=== PATIENT | female | born 1940 | race Caucasian/White ===

== ENCOUNTER 2017-11-13 18:32 | Emergency (ER) | payer MEDICARE, OTHER ==
[2017-11-13 19:53] VITALS: BP 183/59
--- NOTE | 2017-11-13 20:03 | UC ---
Respiratory Complaint HPI - HPI Summary HPI Summary: 77 yo female with a 2 week hx of cough sore throat no CP or SOB no leg pain no n/v/d no f/c - History of Current Complaint Chief Complaint: UCRespiratory Stated Complaint: COUGH Time Seen by Provider: 11/13/17 20:01 Hx Obtained From: Patient Onset/Duration: Gradual Onset, Lasting Weeks Timing: Constant Severity Initially: Mild Severity Currently: Moderate Pain Intensity: 0 Pain Scale Used: 0-10 Numeric Character: Cough: Nonproductive Aggravating Factors: Nothing Alleviating Factors: Nothing Associated Signs And Symptoms: Positive: Wheezing Related History: Similar Episode/Dx as: - bronchitis - Allergies/Home Medications Allergies/Adverse Reactions: Allergies Allergy/AdvReac Type Severity Reaction Status Date / Time atenolol [From Tenormin] Allergy Severe Difficulty Verified 11/13/17 19:55 Breathing terazosin [From Hytrin] Allergy Intermediate Unknown Verified 11/13/17 19:54 Reaction Details verapamil AdvReac Intermediate Fatigue Verified 11/13/17 19:55 diltiazem [From Cardizem] AdvReac Palpitation Verified 11/13/17 19:55 s Home Medications: Home Medications Chlorthalidone TAB* [Hygroton TAB*] 50 mg 11/13/17 [History] Doxyzosyn 1 tab PO DAILY 11/13/17 [History Confirmed 11/13/17] Levalbuterol HFA INHALER* [Xopenex Hfa Inhaler*] 11/13/17 [History] Levothyroxine TAB* [Synthroid 25 MCG TAB*] 25 mg PO DAILY 11/13/17 [History Confirmed 11/13/17] metFORMIN* [Glucophage 500 MG TAB *] 750 mg PO DAILY 11/13/17 [History Confirmed 11/13/17] PMH/Surg Hx/FS Hx/Imm Hx Previously Healthy: Yes Endocrine History: Diabetes, Dyslipidemia Cardiovascular History: Hypertension Neurological History: Other Other Neurological History: left carotid endarterectomy - Surgical History Surgical History: Yes Surgery Procedure, Year, and Place: Partial removal of b/l ovaries, D&C, Tonsillectomy, Left carotid entarectomy. - Family History Known Family History: Positive: Hypertension - Social History Alcohol Use: Occasionally Substance Use Type: None Smoking Status (MU): Never Smoked Tobacco Review of Systems Constitutional: Negative Skin: Negative Eyes: Negative ENT: Sore Throat Respiratory: Cough Cardiovascular: Negative Gastrointestinal: Negative Genitourinary: Negative Motor: Negative Neurovascular: Negative Musculoskeletal: Negative Neurological: Negative Psychological: Negative Is Patient Immunocompromised?: No All Other Systems Reviewed And Are Negative: Yes Physical Exam Triage Information Reviewed: Yes Appearance: Well-Appearing, No Pain Distress, Well-Nourished Vital Signs: Initial Vital Signs Temp 96.7 F 11/13/17 19:49 Pulse 55 11/13/17 19:49 Resp 16 11/13/17 19:49 BP 183/59 11/13/17 19:49 Pulse Ox 99 11/13/17 19:49 Eyes: Positive: Conjunctiva Clear ENT: Positive: Hearing grossly normal, Pharynx normal, Uvula midline. Negative : Nasal congestion, Nasal drainage, Tonsillar swelling, Tonsillar exudate, Trismus, Muffled voice, Hoarse voice, Dental tenderness, Sinus tenderness Neck: Positive: Supple, Nontender, No Lymphadenopathy Respiratory: Positive: No respiratory distress, No accessory muscle use, Rhonchi Cardiovascular: Positive: RRR. Negative: No Murmur - 2/6 LUIGI Musculoskeletal: Positive: ROM Intact, Edema @ - left leg/ wearing compression stocking Neurological: Positive: Alert Psychological Exam: Normal Skin Exam: Normal UC Diagnostic Evaluation - Laboratory O2 Sat by Pulse Oximetry: 99 - normal/not hypoxic - Radiology Xray Interpretation: No Acute Changes Radiology Interpretation Completed By: Radiologist Respiratory Course/Dx - Differential Dx/Diagnosis Provider Diagnoses: acute bronchitis Discharge - Discharge Plan Condition: Stable Disposition: HOME Prescriptions: Amoxicillin PO (*) [Amoxicillin 875 MG (*)] 875 mg PO BID #14 tab predniSONE [Deltasone] 20 mg PO DAILY #5 tab Patient Education Materials: Acute Bronchitis (ED) Referrals: Roel Zavala MD [Primary Care Provider] -
--- NOTE | 2017-11-13 20:33 | RAD ---
INDICATION: Cough for 2 weeks. COMPARISON: There are no prior studies available for comparison. TECHNIQUE: Dual-energy PA and lateral views of the chest were obtained. FINDINGS: The heart is within normal limits in size. Mediastinal and hilar contours appear within normal limits. The lungs are slightly hyperinflated and clear. No pleural effusion is seen. IMPRESSION: NO EVIDENCE FOR ACTIVE CARDIOPULMONARY DISEASE.
[2017-11-13] MEDS ORDERED: Amoxicillin PO (*) 500 MG CAP PO ONE (20:44)
== END 2017-11-13 20:55 | disposition home or self-care (01) ==
LOC: UCCORT 18:32
DX: J20.9 Acute bronchitis, unspecified (principal); Z88.8 Allergy status to other drugs, medicaments and biological substances; E11.9 Type 2 diabetes mellitus without complications; Z79.84 Long term (current) use of oral hypoglycemic drugs; E78.5 Hyperlipidemia, unspecified; I10 Essential (primary) hypertension
CPT/HCPCS: 71046; 99212; A9270-GY; G0463

== ENCOUNTER 2017-12-04 19:59 | Emergency (ER) | payer MEDICARE, OTHER ==
[2017-12-04] MEDS ORDERED: Albuterol/Ipratropium NEB.SOL* Albuterol 2.5 MG/Ipratropium 0.5 MG 3 ML INH ONE (20:21)
--- NOTE | 2017-12-04 21:07 | UC ---
General HPI - HPI Summary HPI Summary: pt states she was here 3 weeks ago, had a cxr and was dx with bronchitis. she was tx with amoxicillin and a steroid. the steroid "almost made me go through the roof" so the dose was reduced to 10mg daily for 5 days. pt states she got better. last night, she noted her airway to be irritated and she began to cough. she noted her chest was rattling. she saw Dr Zavala today who tx her with Levaquin 500mg, once daily for 10 days and xopenex inhaler. she returns with a non stop cough, sob and chills.. pt denies any cp or hx lung disease. - History of Current Complaint Hx Obtained From: Patient Timing: Constant Pain Intensity: 0 Associated Signs & Symptoms: Positive: Cough, SOB <Nida Rodriguez - Last Filed: 12/04/17 22:45> <Steph Washington - Last Filed: 12/04/17 22:51> - History of Current Complaint Chief Complaint: UCRespiratory Stated Complaint: SOB,COUGH Time Seen by Provider: 12/04/17 20:43 - Allergy/Home Medications Allergies/Adverse Reactions: Allergies Allergy/AdvReac Type Severity Reaction Status Date / Time atenolol [From Tenormin] Allergy Severe Difficulty Verified 12/04/17 20:17 Breathing terazosin [From Hytrin] Allergy Intermediate Unknown Verified 12/04/17 20:17 Reaction Details verapamil AdvReac Intermediate Fatigue Verified 12/04/17 20:17 diltiazem [From Cardizem] AdvReac Palpitation Verified 12/04/17 20:17 s Home Medications: Home Medications Levofloxacin TAB* [Levaquin TAB*] 500 mg PO DAILY 12/04/17 [History Confirmed ] PMH/Surg Hx/FS Hx/Imm Hx - Additional Past Medical History Additional PMH: anemia, LLE edema post vein harvest Endocrine History: Thyroid Disease Cardiovascular History: Hypertension - Surgical History Surgical History: Yes Surgery Procedure, Year, and Place: Partial removal of b/l ovaries, D&C, Tonsillectomy, Left carotid entarectomy. - Family History Known Family History: Positive: Hypertension - Social History Alcohol Use: Occasionally Substance Use Type: None Smoking Status (MU): Never Smoked Tobacco <Nida Rodriguez - Last Filed: 12/04/17 22:45> Review of Systems Constitutional: Negative Skin: Negative Eyes: Negative ENT: Negative Respiratory: Shortness Of Breath, Cough Cardiovascular: Negative Gastrointestinal: Negative Genitourinary: Negative Motor: Negative Neurovascular: Negative Musculoskeletal: Negative Neurological: Negative Psychological: Negative Is Patient Immunocompromised?: No All Other Systems Reviewed And Are Negative: Yes <Nida Rodriguez - Last Filed: 12/04/17 22:45> Physical Exam Triage Information Reviewed: Yes Appearance: Well-Appearing Vital Signs: Initial Vital Signs Temp 99.3 F 12/04/17 20:13 Pulse 67 12/04/17 20:13 Resp 18 12/04/17 20:13 BP 180/62 12/04/17 20:13 Pulse Ox 94 12/04/17 20:13 Vital Signs Reviewed: Yes Eyes: Positive: Conjunctiva Clear ENT: Positive: Normal ENT inspection Neck: Positive: Supple, Nontender, Other: - no jvd Respiratory: Positive: Decreased breath sounds, Other: - cough is congested. Cardiovascular: Positive: RRR, No Murmur Abdomen Description: Positive: Nontender, No Organomegaly, Soft Bowel Sounds: Positive: Present Musculoskeletal: Positive: Edema @ - LLE(chronic). No calf pain or cords. Neurological: Positive: Alert Psychological: Positive: Age Appropriate Behavior Skin Exam: Normal <Nida Rodriguez - Last Filed: 12/04/17 22:45> Vital Signs: Initial Vital Signs Temp 99.3 F 12/04/17 20:13 Pulse 67 12/04/17 20:13 Resp 18 12/04/17 20:13 BP 180/62 12/04/17 20:13 Pulse Ox 94 12/04/17 20:13 <Steph Washington - Last Filed: 12/04/17 22:51> Diagnostics - Radiology No standard instances Xray Interpretation: No Acute Changes Radiology Interpretation Completed By: Radiologist <Nida Rodriguez - Last Filed: 12/04/17 22:45> Re-Evaluation - Re-Evaluation Second Eval Re-Evaluation Time: 22:21 Change: Unchanged - sat still 93-94% on RA post neb tx. has a cough. sat on prior visit 99%. <Nida Rodriguez - Last Filed: 12/04/17 22:45> Course/Dx - Course Course Of Treatment: EKG no ischemia and CXR=NAD; however, pt still with cough, sat 93-94%(prior visit 99%). she denies sob post tx but seems dyspnic with converstaion. ER transfer advised; however, pt refused despite risk of worsening, disability and . she is a&ox3 and able to make decisons thus I must respect her refusal of transfer. she agrees to f/u pcp in am. pneumonia and PE are both possibilities. - Differential Dx - Multi-Symptom Provider Diagnoses: SOB, cough, sat 93-94%RA <Nida Rodriguez - Last Filed: 12/04/17 22:45> Discharge - Sign-Out/Discharge Documenting (check all that apply): Discharge - Billing Disposition and Condition Condition: STABLE Disposition: AMMarjorie <Nida Rodriguez - Last Filed: 12/04/17 22:45> - Billing Disposition and Condition Condition: STABLE Disposition: AMA <Steph Washington - Last Filed: 12/04/17 22:51> - Discharge Plan Condition: Stable Disposition: AGAINST MEDICAL ADVICE Patient Education Materials: Dyspnea (ED), Acute Cough (ED) Referrals: Roel Zavala MD [Primary Care Provider] - Additional Instructions: FOLLOW UP DR ZAVALA FIRST THING IN MORNING. GO TO ER IF YOU CHANGE YOUR MIND. CONTINUE THE INHALER AND ANTIBIOTIC(LEVAQUIN) DIRECTED. Attestation Statement User Type: Provider - I was available for consult. This patient was seen by the [facility]. The patient was not presented to, seen by, or examined by me. -Ljj <Steph Washington - Last Filed: 12/04/17 22:51> Addendum entered and electronically signed by Nida Rodriguez PA 12/04/17 22:46 : UC Addendum Addendum: pt declined a single dose 10mg prednisone prior to discharge as well.
--- NOTE | 2017-12-04 21:20 | RAD ---
INDICATION: Cough. Short of breath COMPARISON: November 13, 2017 TECHNIQUE: PA and lateral dual-energy views were obtained. FINDINGS: Bones/Soft Tissues: There are no acute bony findings. Cardiomediastinal: The cardiomediastinal silhouette is normal. Lungs: There are no infiltrates. Pleura: There are no pleural effusions. Other: None IMPRESSION: NO ACTIVE DISEASE.
[2017-12-04 22:13] VITALS: BP 153/43
== END 2017-12-04 22:30 | disposition left against medical advice (07) ==
LOC: UCCORT 19:59
DX: R06.02 Shortness of breath (principal); R05 Cough; Z88.8 Allergy status to other drugs, medicaments and biological substances; I10 Essential (primary) hypertension; Z88.1 Allergy status to other antibiotic agents
CPT/HCPCS: 71046; 87502; 93005; 99213; A9270-GY; G0463

== ENCOUNTER 2019-03-21 06:53 | Inpatient (IN) | payer MEDICARE, OTHER ==
--- NOTE | 2019-03-12 09:27 | HP ---
AMENDED REPORT NOW INCLUDES DESIGNATED COSIGNER HISTORY AND PHYSICAL: DATE OF ADMISSION/SURGERY: 03/21/19 DATE OF OFFICE VISIT: 03/11/19 SURGEON: Katie Shepard MD * (DICTATED BY MILAGRO DORSEY) PROCEDURE: Right total knee arthroplasty. CHIEF COMPLAINT: Right knee pain. HISTORY OF PRESENT ILLNESS: Ms. Mendoza is an 78-year-old female with continuing complaints of right knee pain secondary to osteoarthritis. She has failed conservative treatment and elected to proceed with a right total knee arthroplasty. PAST MEDICAL HISTORY: Hypertension, high cholesterol, asthma, diabetes, sleep apnea, TIA, hypothyroidism and anemia. PAST SURGICAL HISTORY: Endarterectomy, multiple heart caths, tonsillectomy, bilateral partial oophorectomy and . CURRENT MEDICATIONS: 1. Aspirin 81 mg a day. 2. Chlorthalidone 50 mg a day. 3. Synthroid 25 mcg a day. 4. Atorvastatin and calcium 40 mg a day. 5. Metformin 750 mg 1 tab daily. 6. Lisinopril 40 mg a day. 7. Spironolactone 25 mg a day. 8. Doxazosin 4 mg a day. 9. Bystolic 40 mg a day. 10. Xopenex. 11. Symbicort. 12. Feosol. ALLERGIES: VERAPAMIL, CARDIZEM, TENORMIN, LEVAQUIN and HYTRIN. FAMILY HISTORY: Coronary artery disease, stroke, and hypertension. SOCIAL HISTORY: She is an 78-year-old female. She lives with her son. She does not smoke or use drugs. REVIEW OF SYSTEMS: A complete 14-point review of systems is reviewed with the patient, is positive for hypothyroidism, asthma and history of TIA. She denies history of a DVT, PE, hepatitis, HIV or anesthesia problems. PHYSICAL EXAMINATION GENERAL: She is well developed, well nourished, in no acute distress. VITAL SIGNS: She stands 5 feet 2 inches tall, weighs 225 pounds. Her blood pressure is 156/90, heart rate is 73. HEENT: Normocephalic, atraumatic. NECK: Supple. No palpable lymph nodes. PULMONARY: Lungs are clear to auscultation bilaterally. CARDIO: Regular rate and rhythm. Strong S1 and S2. ABDOMEN: Soft, nontender, nondistended. NEUROLOGIC: She is alert and oriented x3. MUSCULOSKELETAL: Right lower extremity, the skin is intact. There are no open wounds or abrasions. There is a moderate effusion of the right knee joint. There is a 20 degree valgus deformity. Range of motion is 5 to 120 degrees of flexion with patellofemoral crepitus. She has an incompetent MCL. She is able to dorsiflex and plantarflex. She has a 2+ dorsalis pedis pulse. ASSESSMENT AND PLAN: Ms. Mendoza is an 78-year-old female with severe end-stage osteoarthritis of the right knee. She has failed conservative treatment and elected to proceed with a right total knee arthroplasty. The surgery is scheduled for 03/21/[address] Shepard discussed the risks and benefits of the surgery at today's visit and all of her questions were answered. She will follow up with Dr. Shepard 2 weeks after the surgery. MILAGRO DORSEY [id number]/[facility] #: [id number] MARGIE
[~2019-03-21 06:53] MED LIST: Acetaminophen TAB* 325 MG PO ONE; Buffered Lidocaine 1% SYRIN* 1 ML/SYRINGE INTRADERM ONE; DiMENhydriNATE IV* 50 MG/ML VIAL IV PUSH PRN; Famotidine IV* 10 MG/ML 2 ML (20 mg) IV ONE; Gabapentin CAP(*) 300 MG PO ONE; Morphine 4 MG/ML VIAL (1 ml) 4 MG/ML VIAL IV PRN; Naloxone* 0.4 MG/ML 1 ML VIAL IV PRN; Ondansetron ODT TAB* 4 MG PO ONE; PROCHLORPERAZINE INJ 5 MG/ML 2 ML VIAL IV PRN; ROPIVACAINE 5 MG/ML 30 ML BTL (0.5%) ONE; celeCOXIB CAP* 100 MG PO ONE; fentaNYL* 50 MCG/ML 2 ML VIAL (100 MCG VIAL) IV PRN; oxyCODONE TAB* 5 MG TAB PO PRN
--- OUTSIDE RECORDS SUMMARY | 2019-03-21 06:57 | XMS REPORT | Continuity of Care Document ---
:1940 External Reference #:[id number] Author Name Darlene Ramirez Care Team Providers Name Role Phone Roel Zavala MD Primary Care Physician Unavailable Payers Date Identification Numbers Payment Provider Subscriber Policy Number: [id number] Medicare Maisha Mendoza PayID: [id number] [address] [place] [address] Policy Number: [id number] Lifetime Benefit Solution Maisha Mendoza PayID: [id number] [address] [place] [address] Problems Active Problems Provider Date Morbid obesity Katie Shepard M.D. Onset: 01/23/2019 Acquired genu valgum Katie Shepard M.D. Onset: 01/23/2019 Localized, primary osteoarthritis Katie Shepard M.D. Onset: 01/23/2019 Family History Date Family Member(s) Observation Comments General Heart Disease General Hypertension General Stroke Social History Type Date Description Comments Sex Unknown Lives With Son Occupation Retired public health nurse Tobacco Use Start: Unknown Patient has never smoked Smoking Status Reviewed: 03/11/19 Patient has never smoked Allergies, Adverse Reactions, Alerts Active Allergies Reaction Severity Comments Date Verapamil 01/23/2019 Cardizem 01/23/2019 Tenormin 01/23/2019 Levaquin 01/23/2019 Terazosin 01/23/2019 Medications Active Medications SIG Qnty Indications Ordering Provider Date Aspirin Adult Low 1 by mouth every Unknown Strength day 81mg Tablets DR Chlorthalidone 1 by mouth every Unknown 50mg Tablets day Synthroid 1 by mouth every Unknown 25mcg Tablets day Atorvastatin Calcium 1 by mouth every Unknown 40mg day Tablets Metformin HCL ER 2 tablets by Unknown 750mg mouth every day Tablets ER 24HR Lisinopril 1 by mouth every Unknown 40mg Tablets day Spironolactone 1 by mouth every Unknown 25mg Tablets day Doxazosin Mesylate 1 by mouth every Unknown 4mg day Tablets Bystolic Unknown Xopenex Unknown Symbicort Unknown Feosol Unknown Vital Signs Date Vital Result Comment 03/11/2019 2:01pm Height 62.5 inches 5'2.50" Weight 225.00 lb Heart Rate 73 /min BP Systolic 156 mmHg BP Diastolic 90 mmHg Body Temperature 96.9 F BMI (Body Mass Index) 40.5 kg/m2 01/23/2019 10:32am Height 62.50 inches 5'2.50" Weight 224.00 lb Heart Rate 64 /min BP Systolic 140 mmHg BP Diastolic 72 mmHg Respiratory Rate 18 /min Body Temperature 97.0 F Pain Level 3 BMI (Body Mass Index) 40.3 kg/m2 Results Test Date Facility Test Result H/L Range Note Xray 01/23/2019 [facility] Knee 3 Views RT <pending> [address] [place] [address] [phone] Encounters Type Date Location Provider Dx Diagnosis Office Visit 01/23/2019 [facility] Katie Shepard, M25.561 [facility] M25.461 Effusion, right knee M17.11 Unilateral primary osteoarthritis, right knee M21.061 Valgus deformity, not elsewhere classified, right knee Z68.41 Body mass index (BMI) 40.0-44.9, adult E66.01 Morbid (severe) obesity due to excess calories Plan of Treatment Future Appointment(s):04/05/2019 2:00 pm - Katie Shepard M.D. at [facility].03/21/2019 7:30 am - SOHEILA Alvarez at [facility].03/21/2019 7:30 am - Lion Montelongo PA-C at [facility].03/21/2019 7:30 am - MILAGRO Sevilla at [facility].03/21/2019 7:30 am - Katie Shepard M.D. at [facility].03/11/2019 - Katie Shepard M.D.M25.561 Pain in right kneeFollow up:Follow up: 2 weeks after souwdnjO04.461 Effusion, right kneeM17.11 Unilateral primary osteoarthritis, right kneeM21.061 Valgus deformity , not elsewhere classified, right knee
--- OUTSIDE RECORDS SUMMARY | 2019-03-21 06:57 | XMS REPORT | Continuity of Care Document ---
:1940 External Reference #:[id number] Author Name Aziza Winslow Care Team Providers Name Role Phone Roel Zavala MD Primary Care Physician Unavailable Payers Date Identification Numbers Payment Provider Subscriber Policy Number: [id number] Medicare Maisha Mendoza PayID: [id number] [address] [place] [address] Policy Number: [id number] Lifetime Benefit Solution Maisha Mendoza PayID: [id number] [address] [place] [address] Problems Active Problems Provider Date Morbid obesity [...] Patient has never smoked Smoking Status Reviewed: 01/23/19 Patient has never smoked Allergies, Adverse Reactions, Alerts Active Allergies Reaction Severity Comments Date Verapamil 01/23/2019 Cardizem 01/23/2019 Tenormin 01/23/2019 Levaquin 01/23/2019 Terazosin 01/23/2019 Medications Active Medications SIG Qnty Indications Ordering Provider Date Aspirin Adult Low 1 by mouth every Unknown Strength day 81mg Tablets Chlorthalidone 1 by mouth every Unknown 50mg [...] Unknown Vital Signs Date Vital Result Comment 01/23/2019 10:32am Height 62.50 inches 5'2.50" Weight 224.00 lb Heart Rate 64 /min BP Systolic 140 mmHg BP Diastolic 72 mmHg Respiratory Rate 18 /min Body Temperature 97.0 F Pain Level 3 BMI (Body Mass Index) 40.3 kg/m2 Results Test Date Facility Test Result H/L Range Note Xray 01/23/2019 [facility] Knee 3 Views RT <pending> [address] [place] [address] [phone] Encounters Type Date Location Provider Dx Diagnosis Office Visit 01/23/2019 [facility] Katie Shepard, M25.561 Pain in right 9:30a [facility] [facility] knee M25.461 Effusion, right knee M17.11 Unilateral primary osteoarthritis, right knee M21.061 Valgus deformity, not elsewhere classified, right knee Z68.41 Body mass index (BMI) 40.0-44.9, adult E66.01 Morbid (severe) obesity due to excess calories Plan of Treatment Future Appointment(s):03/21/2019 7:30 am - SOHEILA Alvarez at [facility]03/21/2019 7:30 am - Lion Montelongo PA-C at [facility]03/21/2019 7:30 am - MILAGRO Sevilla at [facility]03/21/2019 7:30 am - Katie Shepard M.[facility]. [facility]03/11/2019 2:00 pm - Katie Shepard M.D. [facility]01/23/2019 - Katie Shepard M.D.M25.561 Pain in right kneeFollow up:Follow up: 7-10 days before diyakmgO78.461 Effusion, right kneeM17.11 Unilateral primary osteoarthritis, right kneeM21.061 Valgus deformity, not elsewhere classified, right kneeZ68.41 Body mass index (BMI) 40.0 -44.9, xyycbJ55.01 Morbid (severe) obesity due to excess calories
--- OUTSIDE RECORDS SUMMARY | 2019-03-21 06:58 | XMS REPORT | Continuity of Care Document ---
:1940 External Reference #:[id number] Author Name Flower Mclaughlin Care Team Providers Name Role Phone Roel Zavala MD Primary Care Physician Unavailable Payers Date Identification Numbers Payment Provider Subscriber Policy Number: [id number] Medicare Maisha Mendoza PayID: [id number] [address] [place] [address] Policy Number: [id number] Lifetime Benefit Solution Maisha Mendoza PayID: [id number] [address] [place] [address] Problems Active Problems Provider Date Type 2 diabetes mellitus Onset: 12/11/2013 Essential hypertension Roel Zavala MD Onset: 12/11/2013 Complication Affecting Hypertension Roel Zavala MD Onset: 12/11/2013 Family History Date Family Member(s) Observation Comments Father Hypertension Father Alcoholism Mother Cerebrovascular Accident (CVA) Mother Hyperlipidemia Mother Hypertension First Sister Melanoma Eye Social History Type Date Description Comments Sex Unknown Marital Status Has been 1 time Occupation Medically Retired RN ETOH Use Rarely consumes alcohol Tobacco Use Start: Unknown Patient has never smoked Smoking Status Reviewed: 12/27/17 Patient has never smoked Guns in Home Yes Allergies, Adverse Reactions, Alerts Active Allergies Reaction Severity Comments Date Tenoretic 12/11/2013 Hytrin 12/11/2013 Verapamil 12/11/2013 Cardizem CD 12/11/2013 Levaquin 12/31/2018 Inactive Allergies NKDA 12/11/2013 Medications Active Medications SIG Qnty Indications Ordering Date Provider Zithromax 1 by mouth every 5tabs Roel Zavala MD 02/14/2019 500mg Tablets day for five days Spironolactone take 1 tablet by 90tarayna Zavala MD 12/27/2017 25mg mouth once daily Tablets Chlorthalidone 1 by mouth every 90tabs Roel Zavala MD 12/27/2017 50mg day Tablets Atorvastatin Calcium tab 1 by mouth 90tabs Roel Zavala MD 12/21/2017 40mg every day Tablets Cheney Nasal [place] spray twice 66ml Roel Zavala MD 12/04/2017 0.65% daily to each Solution nare Aspirin 1 by mouth every Roel Zavala MD 10/11/2017 81mg Tablets day Metformin HCL ER 1 by mouth by 90tarayna Zavala MD 10/11/2017 750mg mouth every Tablets ER 24HR evening Zostavax one injection 1units Roel Zavala MD 06/20/2017 11148Ops/0.65ML Suspension Rec Onetouch Ultra Blue as directed 200units Roel Zavala MD 02/14/2017 twice a day dx Strips e11.65 Synthroid 1 by mouth every 90tabs Roel Zavala MD 11/24/2016 25mcg Tablets day on empty stomach. Xopenex HFA 2 puffs every 4 15gm Malia Hammonds, 02/02/2016 45mcg/Act hour as needed M.D. Aerosol cough dyspnea Bystolic tab 2 by mouth 180tabs Roel Zavala MD 09/28/2015 20mg Tablets every day Centrum Silver Ultra as directedc qd Roel Zavala MD 12/11/2013 Womens Tablets Lisinopril 1 by mouth every 90tarayna Zavala MD 12/11/2013 40mg Tablets day Iron 1 by mouth every Unknown 325(65Fe) mg Tablets day Tylenol 2 by mouth as Unknown 325mg Tablets needed Metamucil as directed Unknown 28.3% Powder Doxazosin Mesylate 2tab by mouth Unknown 2mg bid Tablets Symbicort 2 puff twice a KhetiRiki 80-4.5mcg/Act day Aerosol History Medications Levaquin 1 by mouth every 10tabs J20.9 aMlia Hammonds, 12/13/2018 - 500mg Tablets day M.D. 12/31/2018 Furosemide 1 by mouth every 90tabs Roel Zavala MD 12/21/2017 - 40mg Tablets day 12/27/2017 Klor-Con 10 2 by mouth 180tabs Roel Zavala MD 12/21/2017 - 10Meq Tablets ER every day 12/27/2017 Levaquin 1 by mouth every 10tarayna Zavala MD 12/04/2017 - 500mg Tablets day 12/21/2017 Zyrtec Allergy tab 1 by mouth 30caps Roel Zavala MD 12/04/2017 - 10mg Capsules every day 12/21/2017 Metformin HCL tab 1 by mouth 90tabs Roel Zavala MD 10/11/2017 - 750 Tablets every evening 10/11/2017 Spironolactone take 1 tablet by 90tarayna Zavala MD 05/24/2016 - 25mg Tablets mouth once daily 12/21/2017 [place]ney Nasal [place] spray twice 66ml Roel Zavala MD 02/02/2016 - 0.65% Solution daily to each 01/03/2018 nare Zithromax 1 by mouth every 5tabs Roel Zavala MD 02/02/2016 - 500mg Tablets day for five 11/24/2016 days Proair HFA 2 puffs 4 x 8.500gm Roel Zavala MD 08/04/2015 - 108(90Base) mcg/Act daily 06/20/2017 Aerosol Zostavax injection as 1units Roel Zavala MD 06/25/2015 - 48966Yqi/0.65ML Solution ordered 11/25/2015 Rec Bactroban apply three 15gm Malia Hammonds, 04/21/2015 - 2% Ointment times a day to M.D. 06/25/2015 affected areas Doxazosin Mesylate 2 tab by mouth 90tabs Roel Zavala MD 02/20/2015 - 2mg Tablets every day 09/28/2015 Bystolic 4 by mouth every 360tabs Roel Zavala MD 10/03/2014 - 10mg Tablets day 09/28/2015 Clonidine HCL 1 tab po bID 180tabs Roel Zavala MD 12/11/2013 - 0.1mg Tablets 12/11/2013 Hydralazine HCL 1 po qid 480tabs Roel Zavala MD 12/11/2013 - 10mg Tablets 12/11/2013 Spironolactone 1 po qd 90tabs Roel Zavala MD 12/11/2013 - 25mg Tablets 12/11/2013 Hydrochlorothiazide 1 po qd 90tabs Roel Zavala MD 12/11/2013 - 25mg Tablets 12/11/2013 Chlorthalidone 1 by mouth every 90tabs Roel Zavala MD 12/11/2013 - 50mg Tablets day 12/21/2017 Metformin HCL 1 by mouth twice 180tabs Roel Zavala MD 12/11/2013 - 500mg Tablets a day 10/11/2017 Tekturna 2 by mouth every 180tabs Roel Zavala MD 12/11/2013 - 150mg Tablets day 08/04/2015 Aspirin 1 po qd Roel Zavala MD 12/11/2013 - 325mg Tablets DR 10/11/2017 Celebrex 1 po qd prn 90caps Roel Zavala MD 12/11/2013 - 200mg Capsules 05/13/2014 Proventil HFA 2 puffs q4 hrs 1units Roel Zavala MD 12/11/2013 - 108(90Base) mcg/Act prn 12/11/2013 Aerosol Simvastatin 1 by mouth every 90tabs Roel Zavala MD 12/11/2013 - 80mg Tablets day 12/21/2017 Bystolic 2 by mouth every 180tabs Roel Zavala MD 12/11/2013 - 20mg Tablets day 10/03/2014 Calcium 500 + D 1po daily 60tabs Unknown - [id number] 06/20/2017 Tablets Hydralazine HCL Tab 1 PO bid 180tabs Roel Zavala MD - 50mg Tablets 01/28/2015 Augmentin twice a day Unknown - 875-125mg Tablets 06/25/2015 Doxycycline Monohydrate 1 by mouth twice Unknown - 100mg a day 08/06/2015 Capsules Tekturna Unknown - 75 Tablets 11/24/2016 Doxazosin Mesylate 2Tab PO Q Day Unknown - 4mg Tablets 12/21/2017 Cardura 1 tab po bid Unknown - 4mg Tablets 06/20/2017 Claritin 1 by mouth every Unknown - 10mg Tablets day 12/13/2018 Symbicort 1 puffs by mouth Unknown - 160-4.5mcg/Act Aerosol twice a day 12/31/2018 Immunizations CPT Code Status Date Vaccine Lot # [id number] Given 05/09/2018 Influenza Virus (Afluria) Split Virus 3 Years Of [id number] Age And Older Q2035 Given 06/13/2017 Influenza Virus (Afluria) Split Virus 3 Years Of [id number] Age And Older 35537 Given 03/13/2017 Pneumococcal Conjugate Vaccine 13 Valent For [id number] Intramuscular Use Q2037 Given 05/24/2016 Influenza Vaccine (Fluvirin) 1 Years Of Age Or [id number] Older Q2035 Given 06/25/2015 Influenza Virus (Afluria) Split Virus 3 Years Of [id number] Age And Older 88776 Given 02/20/2015 Pneumovax Polyvalent Inj Im [id number] Q2037 Given 07/14/2014 Influenza Vaccine (Fluvirin) 1 Years Of Age Or [id number] Older 85646 Given 09/04/2012 Tetanus,Diphtheria,Adut/Adol Pertussis 80716 Given 09/04/2004 Pneumovax Polyvalent Inj Im Vital Signs Date Vital Result Comment 02/27/2019 3:17pm BP Systolic 110 mmHg BP Diastolic 48 mmHg Heart Rate 52 /min Height 62.25 inches 5'2.25" Weight 224.00 lb BMI (Body Mass Index) 40.6 kg/m2 O2 % BldC Oximetry 96 % 02/14/2019 4:27pm BP Systolic 130 mmHg BP Diastolic 60 mmHg Heart Rate 76 /min Height 62.25 inches 5'2.25" Weight 224.00 lb BMI (Body Mass Index) 40.6 kg/m2 12/31/2018 2:51pm BP Systolic 134 mmHg BP Diastolic 66 mmHg Height 62.25 inches 5'2.25" Weight 224.00 lb BMI (Body Mass Index) 40.6 kg/m2 12/13/2018 2:12pm BP Systolic 118 mmHg BP Diastolic 66 mmHg Body Temperature 96.5 F Height 62.25 inches 5'2.25" Weight 224.00 lb BMI (Body Mass Index) 40.6 kg/m2 09/24/2018 12:30pm BP Systolic 142 mmHg BP Diastolic 60 mmHg Height 62.25 inches 5'2.25" Weight 224.00 lb BMI (Body Mass Index) 40.6 kg/m2 05/09/2018 1:42pm BP Systolic 138 mmHg BP Diastolic 66 mmHg Heart Rate 52 /min Height 62.25 inches 5'2.25" Weight 220.00 lb BMI (Body Mass Index) 39.9 kg/m2 O2 % BldC Oximetry 97 % 02/01/2018 2:01pm BP Systolic 120 mmHg BP Diastolic 70 mmHg Height 62.25 inches 5'2.25" Weight 215.00 lb BMI (Body Mass Index) 39.0 kg/m2 01/03/2018 1:19pm BP Systolic 140 mmHg BP Diastolic 60 mmHg Heart Rate 60 /min Height 62.25 inches 5'2.25" Weight 216.00 lb BMI (Body Mass Index) 39.2 kg/m2 O2 % BldC Oximetry 96 % 12/27/2017 11:17am BP Systolic 174 mmHg BP Diastolic 62 mmHg BP Systolic Recheck 170 mmHg large cuff BP Diastolic Recheck 58 mmHg large cuff Heart Rate 44 /min Height 62.25 inches 5'2.25" Weight 218.00 lb BMI (Body Mass Index) 39.5 kg/m2 12/21/2017 8:51am BP Systolic 148 mmHg BP Diastolic 60 mmHg Heart Rate 57 /min Height 62.25 inches 5'2.25" Weight 220.00 lb BMI (Body Mass Index) 39.9 kg/m2 O2 % BldC Oximetry 96 % 2.5 12/04/2017 11:01am BP Systolic 134 mmHg BP Diastolic 64 mmHg Body Temperature 97.3 F Height 62.25 inches 5'2.25" 10/11/2017 1:10pm BP Systolic 156 mmHg BP Diastolic 70 mmHg Height 62.25 inches 5'2.25" Weight 225.00 lb BMI (Body Mass Index) 40.8 kg/m2 06/20/2017 1:10pm BP Systolic 132 mmHg BP Diastolic 76 mmHg Height 62.25 inches 5'2.25" Weight 226.00 lb BMI (Body Mass Index) 41.0 kg/m2 03/13/2017 2:32pm BP Systolic 122 mmHg BP Diastolic 60 mmHg Height 63 inches 5'3" Weight 224.00 lb BMI (Body Mass Index) 39.7 kg/m2 02/13/2017 1:34pm BP Systolic 144 mmHg BP Diastolic 80 mmHg 11/24/2016 1:57pm BP Systolic 148 mmHg BP Diastolic 70 mmHg Height 64 inches 5'4" Weight 229.00 lb BMI (Body Mass Index) 39.3 kg/m2 05/24/2016 11:06am BP Systolic 128 mmHg BP Diastolic 66 mmHg Height 64 inches 5'4" Weight 228.00 lb BMI (Body Mass Index) 39.1 kg/m2 02/02/2016 3:13pm BP Systolic 132 mmHg BP Diastolic 70 mmHg Body Temperature 98.5 F 10/28/2015 1:29pm BP Systolic 140 mmHg BP Diastolic 62 mmHg 09/28/2015 1:45pm BP Systolic 136 mmHg BP Diastolic 72 mmHg Height 64 inches 5'4" Weight 231.00 lb BMI (Body Mass Index) 39.6 kg/m2 08/04/2015 11:52am BP Systolic 138 mmHg BP Diastolic 80 mmHg 06/25/2015 1:59pm BP Systolic 128 mmHg BP Diastolic 72 mmHg Height 63 inches 5'3" Weight 226.00 lb BMI (Body Mass Index) 40.0 kg/m2 05/06/2015 11:48am BP Systolic 134 mmHg BP Diastolic 76 mmHg 04/28/2015 3:07pm BP Systolic 136 mmHg BP Diastolic 84 mmHg 04/21/2015 7:48pm BP Systolic 138 mmHg BP Diastolic 70 mmHg 02/20/2015 1:42pm BP Systolic 132 mmHg BP Diastolic 80 mmHg Height 61 inches 5'1" Weight 229.00 lb BMI (Body Mass Index) 43.3 kg/m2 01/20/2015 10:31am BP Systolic 126 mmHg BP Diastolic 80 mmHg 05/13/2014 9:38am BP Systolic 150 mmHg BP Diastolic 80 mmHg Weight 232.00 lb 02/04/2014 9:41am BP Systolic 158 mmHg BP Diastolic 70 mmHg 01/21/2014 4:14pm BP Systolic 144 mmHg BP Diastolic 70 mmHg Height 63 inches 5'3" Weight 233.00 lb BMI (Body Mass Index) 41.3 kg/m2 12/11/2013 3:18pm BP Systolic 150 mmHg BP Diastolic 70 mmHg Height 63 inches 5'3" Weight 231.00 lb BMI (Body Mass Index) 40.9 kg/m2 Results Test Date Facility Test Result H/L Range Note Lipid Panel 01/09/2019 [facility] Cholesterol 140 mg/dL <199 [address] [place] [address] [phone] HDL Cholesterol 50 mg/dL Low >50 Cholesterol/HDL Ratio 2.8 CALC <5.0 LDL Chol,Calculated 70 mg/dL 0-100 2 Triglycerides 118 mg/dL <150 Non-HDL Cholesterol 91 mg/dL <130 3 CBC W/ Diff & PLT 01/09/2019 [facility] WBC 5.4 thous/L 3.8-10.8 [address] [facility] [place] [address] [phone] RBC 3.19 mill/L Low 3.80-5.10 Hemoglobin 10.7 g/dL Low 11.7-15.5 Hematocrit 31.9 % Low 35.0-45.0 MCV 100.1 FL High 80.0-100.0 MCH 33.5 pg High 27.0-33.0 MCHC 33.5 g/dL 32.0-36.0 RDW 13.6 % 11.0-15.0 Platelet Count 306 thous/L 140-400 MPV 8.5 FL 7.5-12.5 Neutrophils,Absolute 3510 cells/L 8358-6267 Bands,Absolute PENDING Metamyelocytes,Absolute PENDING Myelocytes,Absolute PENDING Promyelocytes,Absolute PENDING Lymphocytes,Absolute 1270 cells/L 850-3900 Monocytes,Absolute 410 cells/L 200-950 Eosinophils,Absolute 160 cells/L 15-500 Basophils,Absolute 30 cells/L 0-200 Blast Cells,Absolute PENDING Nucleated RBC,Absolute PENDING Total Neutrophils,% 64 % 40-75 Bands,% PENDING Metamyelocytes,% PENDING Myelocytes,% PENDING Promyelocytes,% PENDING Total Lymphocytes,% 24 % 12-47 Reactive Lymphocytes PENDING Monocytes,% 8 % 4-12 Eosinophils,% 3 % 0-4 Basophils,% 1 % 0-1 4 Blasts,% PENDING Nucleated RBC PENDING Comment PENDING CMP W/GFR 01/09/2019 [facility] Sodium 141 mmol/L 135-[address] [place] [address] [phone] Potassium 4.4 mmol/L 3.5-5.3 Chloride 108 mmol/L 98-110 Carbon Dioxide 28 mmol/L 20-32 5 Calcium 9.3 mg/dL 8.6-10.4 Alkaline Phosphatase 87 U/L 33-130 Ast 12 U/L 10-35 Alt 15 U/L 6-29 Bilirubin,Total 0.5 mg/dL 0.2-1.2 Glucose 114 mg/dL High 65-99 6 Urea Nitrogen (BUN) 40 mg/dL High 7-25 Creatinine 1.19 mg/dL High 0.60-0.88 7 BUN/Creatinine Ratio 33.2 High 6-22 Protein,Total 6.3 g/dL 6.1-8.1 Albumin 4.0 g/dL 3.6-5.1 Globulin,Calculated 2.3 g/dL 1.9-3.7 A/G Ratio 1.8 1.0-2.5 Egfr Non-Afr. Citizen Of [place] 43 ML/MIN/1.73M2 Low > Or=60 Egfr 50 ML/MIN/1.73M2 Low > Or=60 TSH & T4,Free 01/09/2019 [facility] TSH 3.26 mIU/L 0.40-4.[address] [place] [address] [phone] T4,Free 1.1 ng/dL 0.8-1.8 Laboratory test 09/13/2018 [facility] Vitamin 870 pg/mL 200-[address] B12,[place] [address] [phone] Iron And Total 09/13/2018 [facility] Iron,Total 90 g/dL 45-160 Iron Binding [address] [place] [address] [phone] Tibc 323 g/dL 250-450 % Saturation 28 % 11-50 Ferritin 54 NG/ML 20-288 Laboratory test 09/13/2018 [facility] Creatine 41 U/L 29-[address] Kinase,[place] [address] [phone] Hemoglobin A1c 5.7 % High 0-5.6 9 Lipid Panel 09/13/2018 [facility] Cholesterol 143 mg/dL <[address] [place] [address] [phone] HDL Cholesterol 54 mg/dL >50 Cholesterol/HDL Ratio 2.6 CALC <5.0 LDL Chol,Calculated 70 mg/dL 0-100 10 Triglycerides 104 mg/dL <150 Non-HDL Cholesterol 89 mg/dL <130 11 CMP W/GFR 09/13/2018 [facility] Sodium 140 mmol/L 135-[address] [place] [address] [phone] Potassium 4.3 mmol/L 3.5-5.3 Chloride 106 mmol/L 98-110 Carbon Dioxide 27 mmol/L 20-32 12 Calcium 9.2 mg/dL 8.6-10.4 Alkaline Phosphatase 85 U/L 33-130 Ast 13 U/L 10-35 Alt 13 U/L 6-29 Bilirubin,Total 0.7 mg/dL 0.2-1.2 Glucose 112 mg/dL High 65-99 13 Urea Nitrogen (BUN) 38 mg/dL High 7-25 Creatinine 1.30 mg/dL High 0.60-0.93 14 BUN/Creatinine Ratio 29.4 High 6-22 Protein,Total 6.5 g/dL 6.1-8.1 Albumin 4.0 g/dL 3.6-5.1 Globulin,Calculated 2.5 g/dL 1.9-3.7 A/G Ratio 1.7 1.0-2.5 Egfr Non-Afr. Citizen Of [place] 39 ML/MIN/1.73M2 Low > Or=60 Egfr 45 ML/MIN/1.73M2 Low > Or=60 CBC W/ Diff & PLT 09/13/2018 [facility] WBC 6.1 thous/L 3.8-10.[address] [place] [address] [phone] RBC 3.34 mill/L Low 3.80-5.10 Hemoglobin 11.5 g/dL Low 11.7-15.5 Hematocrit 32.5 % Low 35.0-45.0 MCV 97.3 FL 80.0-100.0 MCH 34.3 pg High 27.0-33.0 MCHC 35.3 g/dL 32.0-36.0 RDW 13.6 % 11.0-15.0 Platelet Count 331 thous/L 140-400 MPV 7.7 FL 7.5-12.5 Neutrophils,Absolute 4040 cells/L 3882-7985 Bands,Absolute PENDING Metamyelocytes,Absolute PENDING Myelocytes,Absolute PENDING Promyelocytes,Absolute PENDING Lymphocytes,Absolute 1340 cells/L 850-3900 Monocytes,Absolute 530 cells/L 200-950 Eosinophils,Absolute 160 cells/L 15-500 Basophils,Absolute 30 cells/L 0-200 Blast Cells,Absolute PENDING Nucleated RBC,Absolute PENDING Total Neutrophils,% 66 % 40-75 Bands,% PENDING Metamyelocytes,% PENDING Myelocytes,% PENDING Promyelocytes,% PENDING Total Lymphocytes,% 22 % 12-47 Reactive Lymphocytes PENDING Monocytes,% 9 % 4-12 Eosinophils,% 3 % 0-4 Basophils,% 0 % 0-1 15 Blasts,% PENDING Nucleated RBC PENDING Comment PENDING General Health Panel 09/13/2018 [facility] TSH 4.12 mIU/L 0.40-4.50 [address] [facility] [address] [place] [address] [phone] T4,Free 1.1 ng/dL 0.8-1.8 TSH & T4,Free 04/27/2018 [facility] TSH 3.84 mIU/L 0.40-4.[address] [place] [address] [phone] T4,Free 1.1 ng/dL 0.8-1.8 Laboratory test 04/27/2018 [facility] Creatine 31 U/L 29-[address] [place] [address] [phone] Hepatic Function 04/27/2018 [facility] Alkaline 90 U/L 33-[address] [place] [address] [phone] Ast 15 U/L 10-35 Alt 16 U/L 6-29 Bilirubin,Total 0.6 mg/dL 0.2-1.2 Bilirubin,Direct 0.1 mg/dL < Or=0.2 Protein,Total 6.5 g/dL 6.1-8.1 Albumin 4.1 g/dL 3.6-5.1 Globulin,Calculated 2.4 g/dL 1.9-3.7 A/G Ratio 1.7 1.0-2.5 Lipid Panel 04/27/2018 [facility] Cholesterol 146 mg/dL <[address] [place] [address] [phone] HDL Cholesterol 57 mg/dL >50 Cholesterol/HDL Ratio 2.6 CALC <5.0 LDL Chol,Calculated 70 mg/dL 0-100 18 Triglycerides 106 mg/dL <150 Non-HDL Cholesterol 90 mg/dL <130 19 CBC W/ Diff & PLT 04/27/2018 [facility] WBC 6.4 thous/L 3.8-10.[address] [place] [id number] [phone] RBC 3.19 mill/L Low 3.80-5.10 Hemoglobin 10.8 g/dL Low 11.7-15.5 Hematocrit 32.0 % Low 35.0-45.0 MCV 100.2 FL High 80.0-100.0 MCH 33.9 pg High 27.0-33.0 MCHC 33.9 g/dL 32.0-36.0 RDW 14.2 % 11.0-15.0 Platelet Count 339 thous/L 140-400 MPV 7.6 FL 7.5-12.5 Neutrophils,Absolute 4460 cells/L 2650-8037 Bands,Absolute PENDING Metamyelocytes,Absolute PENDING Myelocytes,Absolute PENDING Promyelocytes,Absolute PENDING Lymphocytes,Absolute 1230 cells/L 850-3900 Monocytes,Absolute 530 cells/L 200-950 Eosinophils,Absolute 180 cells/L 15-500 Basophils,Absolute 20 cells/L 0-200 Blast Cells,Absolute PENDING Nucleated RBC,Absolute PENDING Total Neutrophils,% 69 % 40-75 Bands,% PENDING Metamyelocytes,% PENDING Myelocytes,% PENDING Promyelocytes,% PENDING Total Lymphocytes,% 19 % 12-47 Reactive Lymphocytes PENDING Monocytes,% 8 % 4-12 Eosinophils,% 3 % 0-4 Basophils,% 0 % 0-1 20 Blasts,% PENDING Nucleated RBC PENDING Comment PENDING Basic Metabolic Panel 04/27/2018 [facility] Sodium 143 mmol/L 135-[address] [place], [place] [id number] [phone] Potassium 4.4 mmol/L 3.5-5.3 Chloride 106 mmol/L 98-110 Carbon Dioxide 31 mmol/L 20-31 Calcium 9.5 mg/dL 8.6-10.4 Glucose 106 mg/dL High 65-99 21 Urea Nitrogen (BUN) 27 mg/dL High 7-25 Creatinine 1.28 mg/dL High 0.60-0.93 22 BUN/Creatinine Ratio 21.0 6-22 Egfr Non-Afr. Citizen Of [place] 40 ML/MIN/1.73M2 Low > Or=60 Egfr 46 ML/MIN/1.73M2 Low > Or=60 Comp Metabolic Panel 04/27/2018 [facility] Sodium 143 mmol/L 135-146 [address] [place], [place] [id number] [phone] Potassium 4.4 mmol/L 3.5-5.3 Chloride 106 mmol/L 98-110 Carbon Dioxide 31 mmol/L 20-31 Calcium 9.5 mg/dL 8.6-10.4 Alkaline Phosphatase 90 U/L 33-130 Ast 15 U/L 10-35 Alt 16 U/L 6-29 Bilirubin,Total 0.6 mg/dL 0.2-1.2 Glucose 106 mg/dL High 65-99 23 Urea Nitrogen (BUN) 27 mg/dL High 7-25 Creatinine 1.28 mg/dL High 0.60-0.93 24 BUN/Creatinine Ratio 21.0 6-22 Protein,Total 6.5 g/dL 6.1-8.1 Albumin 4.1 g/dL 3.6-5.1 Globulin,Calculated 2.4 g/dL 1.9-3.7 A/G Ratio 1.7 1.0-2.5 Egfr Non-Afr. Citizen Of [place] 40 ML/MIN/1.73M2 Low > Or=60 Egfr 46 ML/MIN/1.73M2 Low > Or=60 Laboratory test 04/27/2018 [facility] Hemoglobin A1c 5.6 % 0-5.6 [address] [place] [address] [phone] Basic Metabolic 01/19/2018 [facility] Sodium 140 mmol/L 135-[address] [place] [address] [phone] Potassium 4.1 mmol/L 3.5-5.3 Chloride 105 mmol/L 98-110 Carbon Dioxide 28 mmol/L 20-31 Calcium 9.8 mg/dL 8.6-10.4 Glucose 115 mg/dL High 65-99 26 Urea Nitrogen (BUN) 39 mg/dL High 7-25 Creatinine 1.37 mg/dL High 0.60-0.93 27 BUN/Creatinine Ratio 28.8 High 6-22 Egfr Non-Afr. Citizen Of [place] 37 ML/MIN/1.73M2 Low > Or=60 Egfr 42 ML/MIN/1.73M2 Low > Or=60 Basic Metab W/O CA 12/27/2017 [facility] Sodium 139 mmol/L 135-[address] [place] [address] [phone] Potassium 4.5 mmol/L 3.5-5.3 Chloride 103 mmol/L 98-110 Carbon Dioxide 28 mmol/L 20-31 Glucose 96 mg/dL 65-99 28 Urea Nitrogen (BUN) 39 mg/dL High 7-25 Creatinine 1.51 mg/dL High 0.60-0.93 29 BUN/Creatinine Ratio 25.8 High 6-22 Basic Metabolic 12/11/2017 [facility] Glucose 113 mg/ dL High 74-106 [address] [place], [place] [id number] [phone] BUN 49 mg/dL High 7-18 Creatinine 1.6 mg/dL High 0.6-1.3 Glom Filtration Rate, Estimate 33 mL/min >60 If 40 mL/min >60 31 BUN/Creat 30.6 ratio Sodium 141 mmol/L N 136-145 Potassium 4.0 mmol/L N 3.5-5.1 Chloride 105 mmol/L N 98-107 Carbon Dioxide 31 mmol/L N 21-32 Anion Gap 5 mEq/L Low 8-16 Calcium 9.2 mg/dL N 8.5-10.1 CBC 12/08/2017 [facility] White Blood Count 5.6 K/uL N 3.1-10.[address] [place] [address] [phone] Red Blood Count 3.11 M/uL Low 3.90-5.40 Hemoglobin 10.2 gm/dL Low 11.6-15.8 Hematocrit 31.5 % Low 36.0-46.1 Mean Cell Volume 101.3 fl High 80.9-99.0 Mean Corpuscular HGB 32.8 pg High 25.9-32.7 Mean Corpuscular HGB Conc 32.4 g/dL N 30.8-34.3 Platelet Count 298 K/uL N 155-360 Red Cell Distri Width %CV 13.5 % N 11.7-14.4 Mean Platelet Volume 9.1 fL N 8.9-12.4 Basic Metabolic Panel 12/08/2017 [facility] Glucose 99 mg/dL N 74-[address] [place] [address] [phone] BUN 33 mg/dL High 7-18 Creatinine 1.5 mg/dL High 0.6-1.3 Glom Filtration Rate, Estimate 36 mL/min >60 If 43 mL/min >60 33 BUN/Creat 22.0 ratio Sodium 142 mmol/L N 136-145 Potassium 3.7 mmol/L N 3.5-5.1 Chloride 104 mmol/L N 98-107 Carbon Dioxide 32 mmol/L N 21-32 Anion Gap 6 mEq/L Low 8-16 Calcium 8.9 mg/dL N 8.5-10.1 Laboratory test 12/08/2017 [facility] Magnesium 2.0 mg/dL N 1.8-2.[address] [place] [address] [phone] Laboratory test 12/07/2017 [facility] C-Reactive 36.2 mg/L High <3.[address] Protein,[place] [address] [phone] Basic Metabolic 12/07/2017 [facility] Glucose 123 mg/ dL High 74-[address] [place] [address] [phone] BUN 29 mg/dL High 7-18 Creatinine 1.6 mg/dL High 0.6-1.3 Glom Filtration Rate, Estimate 33 mL/min >60 If 40 mL/min >60 34 BUN/Creat 18.1 ratio Sodium 141 mmol/L N 136-145 Potassium 3.6 mmol/L N 3.5-5.1 Chloride 106 mmol/L N 98-107 Carbon Dioxide 30 mmol/L N 21-32 Anion Gap 5 mEq/L Low 8-16 Calcium 8.5 mg/dL N 8.5-10.1 CBC 12/07/2017 [facility] White Blood Count 5.2 K/uL N 3.1-10.[address] [place] [address] [phone] Red Blood Count 2.94 M/uL Low 3.90-5.40 Hemoglobin 9.7 gm/dL Low 11.6-15.8 Hematocrit 29.8 % Low 36.0-46.1 Mean Cell Volume 101.4 fl High 80.9-99.0 Mean Corpuscular HGB 33.0 pg High 25.9-32.7 Mean Corpuscular HGB Conc 32.6 g/dL N 30.8-34.3 Platelet Count 281 K/uL N 155-360 Red Cell Distri Width %CV 13.5 % N 11.7-14.4 Mean Platelet Volume 9.2 fL N 8.9-12.4 Continuous Oximetry 12/07/2017 [facility] Oximetry 91 % Low 93-[address] [place], [place] [id number] [phone] Fio2 21 N 21-100 Heart Rate 68 BPM Patient Status RESTING Patient Position SITTING UP IN BE <SEE NOTE> 35 Continuous Oximetry 12/07/2017 [facility] Oximetry 82 % Low 93-[address] [place] [address] [phone] Fio2 21 N 21-100 Heart Rate 86 BPM Patient Status AMBULATING Continuous Oximetry 12/07/2017 [facility] Oximetry 95 % N 93-[address] [place] [address] [phone] O2l/Min 2 L/min Oximetry Delivery N/C Heart Rate 91 BPM Patient Status AMBULATING Laboratory test 12/06/2017 [facility] Legionella Negative Negative [address] [place] [address] [phone] Glycohemoglobin 12/06/2017 [facility] Glycohemoglobin 5.6 % N 4.2-6.3 [address] (A1c) [place] [address] [phone] eAG 114 mg/dL LDL Cholesterol 12/06/2017 [facility] Cholesterol 115 mg/dL <200 [address] [place] [address] [phone] Triglycerides 65 mg/dL <150 39 HDL Cholesterol 60 mg/dL >40 40 LDL-Cholesterol 42 mg/dL < 100 41 Comprehensive 12/06/2017 [facility] Glucose 103 mg/ dL N 74-106 Metabolic Panel [address] [place] [address] [phone] BUN 28 mg/dL High 7-18 Creatinine 1.6 mg/dL High 0.6-1.3 Glom Filtration Rate, Estimate 33 mL/min >60 If 40 mL/min >60 42 BUN/Creat 17.5 ratio Sodium 139 mmol/L N 136-145 Potassium 3.7 mmol/L N 3.5-5.1 Chloride 104 mmol/L N 98-107 Carbon Dioxide 29 mmol/L N 21-32 Anion Gap 6 mEq/L Low 8-16 Calcium 8.5 mg/dL N 8.5-10.1 Total Protein 6.1 g/dL Low 6.4-8.2 Albumin 2.9 g/dL Low 3.4-5.0 Globulin 3.2 g/dL N 1.9-4.3 Alb/Glob 0.9 ratio Bilirubin,Total 0.4 mg/dL N 0.2-1.0 Sgot/Ast 17 U/L N 15-37 SGPT/Alt 14 U/L N 12-78 Alkaline Phosphatase 55 U/L N 45-117 Vitamin B12 And 12/06/2017 [facility] Vitamin B12 578 pg/mL N 193-[address] [place] [address] [phone] Folic Acid > 20.0 ng/mL High 3.1-17.5 Iron-Tibc-%Sat 12/06/2017 [facility] Serum Iron 26 g/dL Low 50-[address] [place] [address] [phone] Total Iron Binding Capacity 268 g/dL N 250-450 Transferrin %Saturation 10 % Low 12-57 Aot Request 12/06/2017 [facility] Aot Request Test(s ) added [address] [place] [address] [phone] Tests to be added: BNP CBS W/Automated 12/06/2017 [facility] White Blood 5.9 K/uL N 3.1-10.[address] [place] [address] [phone] Red Blood Count 2.77 M/uL Low 3.90-5.40 Hemoglobin 9.3 gm/dL Low 11.6-15.8 Hematocrit 27.9 % Low 36.0-46.1 Mean Cell Volume 100.7 fl High 80.9-99.0 Mean Corpuscular HGB 33.6 pg High 25.9-32.7 Mean Corpuscular HGB Conc 33.3 g/dL N 30.8-34.3 Platelet Count 246 K/uL N 155-360 Red Cell Distri Width SD 48.0 fl High 3-47 Red Cell Distri Width %CV 13.5 % N 11.7-14.4 Mean Platelet Volume 9.7 fL N 8.9-12.4 Neut% 61.3 % N 40.4-72.8 Lymph % 14.6 % Low 20.0-42.0 [place] % 19.8 % High 4.3-13.2 Eo% 4.1 % N 0.0-6.6 Bas% 0.2 % N 0.0-1.1 Neut# 3.62 K/uL N 1.8-7.0 Lymph # 0.86 K/uL Low 1.0-4.0 [place] # 1.17 K/uL High 0.3-0.9 Eos # 0.24 K/uL N 0.0-0.5 Baso # 0.01 K/uL N 0.0-0.1 Laboratory test 12/06/2017 [facility] C-Reactive 52.1 mg/L High <3.[address] Protein,[place] [address] [phone] NT-proBNP 1489.0 pg/mL High <450 Legionella 12/05/2017 [facility] Legionella (SEE NOTE ) [address] [place] [address] [phone] Aot Request 12/05/2017 [facility] Aot Request Test(s ) [address] [place] [address] [phone] Tests to be added: TSH Aot Request 12/05/2017 [facility] Aot Request Test(s ) added [address] [place] [id number] [phone] Tests to be added: Mg, Phos, CRP Blood Culture 12/05/2017 [facility] Blood Culture NO GROWTH: [address] Aerobic FINAL <[place] [address] NOTE> [phone] Blood Culture Anaerobic NO GROWTH: FINAL <SEE NOTE> 48 Laboratory test finding 12/05/2017 [facility] CK 86 U /L N 26-[address] [place] [address] [phone] Troponin-I < 0.015 ng/mL 50 Phosphorous 3.0 mg/dL N 2.5-4.0 Magnesium 1.7 mg/dL Low 1.8-2.4 Thyroid Stim Hormone 1.17 uIU/mL N 0.30-4.20 C-Reactive Protein,Quant 47.2 mg/L High <3.0 Comprehensive 12/05/2017 [facility] Glucose 109 mg/ dL High 74-106 Metabolic Panel [address] [place] [address] [phone] BUN 26 mg/dL High 7-18 Creatinine 1.4 mg/dL High 0.6-1.3 Glom Filtration Rate, Estimate 39 mL/min >60 If 47 mL/min >60 51 BUN/Creat 18.5 ratio Sodium 139 mmol/L N 136-145 Potassium 3.9 mmol/L N 3.5-5.1 Chloride 103 mmol/L N 98-107 Carbon Dioxide 28 mmol/L N 21-32 Anion Gap 8 mEq/L N 8-16 Calcium 9.2 mg/dL N 8.5-10.1 Total Protein 7.2 g/dL N 6.4-8.2 Albumin 3.4 g/dL N 3.4-5.0 Globulin 3.8 g/dL N 1.9-4.3 Alb/Glob 0.9 ratio Bilirubin,Total 0.6 mg/dL N 0.2-1.0 Sgot/Ast 12 U/L Low 15-37 52 SGPT/Alt 19 U/L N 12-78 Alkaline Phosphatase 67 U/L N 45-117 Lactic Acid 12/05/2017 [facility] Lactic Acid 1.1 mmol/L N 0.4-1.[address] [place] [address] [phone] Lab Reflex >2.0 for Sepsis? Y CBS W/Automated 12/05/2017 [facility] White Blood 8.1 K/uL N 3.1-10.[address] [place] [address] [phone] Red Blood Count 3.32 M/uL Low 3.90-5.40 Hemoglobin 10.9 gm/dL Low 11.6-15.8 Hematocrit 33.0 % Low 36.0-46.1 Mean Cell Volume 99.4 fl High 80.9-99.0 Mean Corpuscular HGB 32.8 pg High 25.9-32.7 Mean Corpuscular HGB Conc 33.0 g/dL N 30.8-34.3 Platelet Count 263 K/uL N 155-360 Red Cell Distri Width SD 47.0 fl N 3-47 Red Cell Distri Width %CV 13.3 % N 11.7-14.4 Mean Platelet Volume 8.9 fL N 8.9-12.4 Neut% 78.5 % High 40.4-72.8 Lymph % 7.3 % Low 20.0-42.0 Hays % 12.6 % N 4.3-13.2 Eo% 1.4 % N 0.0-6.6 Bas% 0.2 % N 0.0-1.1 Neut# 6.34 K/uL N 1.8-7.0 Lymph # 0.59 K/uL Low 1.0-4.0 [place] # 1.02 K/uL High 0.3-0.9 Eos # 0.11 K/uL N 0.0-0.5 Baso # 0.02 K/uL N 0.0-0.1 Blood Culture 12/05/2017 [facility] Blood Culture NO GROWTH: 53, [address] Aerobic FINAL <[place] [address] NOTE> [phone] Blood Culture Anaerobic NO GROWTH: FINAL <SEE NOTE> 55 Laboratory test 12/05/2017 [facility] Urine Culture NO GROWTH: [address] FINAL <[place] [address] NOTE> [phone] Urinalysis With 12/05/2017 [facility] Urine Color YELLOW Yellow [address] [place], [place] [id number] [phone] Urine Clarity CLEAR Clear Urine Glucose - Dipstick NEGATIVE mg/dL Negative Urine Bilirubin - Dipstick NEGATIVE Negative Urine Ketone NEGATIVE mg/dL Negative Urine Specific [place] 1.010 N 1.010-1.030 Urine Blood TRACE Negative Urine PH 5.5 Low 6.5-7.5 Urine Protein - Dipstick NEGATIVE mg/dL Negative Urine Urobilinogen - Dipstick 0.2 E.U./dL N 0.2-1.0 Urine Nitrite - Dipstick NEGATIVE Negative Urine Leuk Esterase SMALL Abnormal Negative Urine RBC NONE SEEN rbc/hpf 0-2 Urine WBC 5-10 wbc/hpf 0-7 Urine Epithelial Cells MODERATE /lpf None Seen 58 Urine Bacteria FEW None Seen Source: URINE, CLEAN CAT <SEE NOTE> 59 Rapid Influenza 12/04/2017 [facility] Influenza A NEGATIVE Negative 60 A & B Molecular [address] Molecular [place], [place] [id number] [phone] Influenza B Molecular NEGATIVE Negative Laboratory test 09/20/2017 [facility] Creatine 30 U/L 29-[address] Kinase,[place] [address] [phone] Hepatic Function 09/20/2017 [facility] Alkaline 71 U/L 33-[address] Phosphatase [place], [place] [id number] [phone] Ast 13 U/L 10-35 Alt 13 U/L 6-29 Bilirubin,Total 0.5 mg/dL 0.2-1.2 Bilirubin,Direct 0.1 mg/dL < Or=0.2 Protein,Total 6.6 g/dL 6.1-8.1 Albumin 4.1 g/dL 3.6-5.1 Globulin,Calculated 2.5 g/dL 1.9-3.7 A/G Ratio 1.6 1.0-2.5 Lipid Panel 09/20/2017 [facility] Cholesterol 142 mg/dL <[address] [place] [address] [phone] HDL Cholesterol 56 mg/dL >50 Cholesterol/HDL Ratio 2.5 CALC <5.0 LDL Chol,Calculated 67 mg/dL 0-100 61 Triglycerides 102 mg/dL <150 Non-HDL Cholesterol 86 mg/dL <130 62 Laboratory test 09/20/2017 [facility] Hemoglobin A1c 5.4 % 0-5.6 [address] [place] [address] [phone] Comp Metabolic 09/20/2017 [facility] Sodium 141 mmol/L 135-[address] [place] [address] [phone] Potassium 4.9 mmol/L 3.5-5.3 Chloride 105 mmol/L 98-110 Carbon Dioxide 28 mmol/L 20-31 Calcium 9.4 mg/dL 8.6-10.4 Alkaline Phosphatase 71 U/L 33-130 Ast 13 U/L 10-35 Alt 13 U/L 6-29 Bilirubin,Total 0.5 mg/dL 0.2-1.2 Glucose 119 mg/dL High 65-99 64 Urea Nitrogen (BUN) 36 mg/dL High 7-25 Creatinine 1.40 mg/dL High 0.60-0.93 65 BUN/Creatinine Ratio 25.7 High 6-22 Protein,Total 6.6 g/dL 6.1-8.1 Albumin 4.1 g/dL 3.6-5.1 Globulin,Calculated 2.5 g/dL 1.9-3.7 A/G Ratio 1.6 1.0-2.5 Egfr Non-Afr. Citizen Of [place] 36 ML/MIN/1.73M2 Low > Or=60 Egfr 42 ML/MIN/1.73M2 Low > Or=60 Comp Metabolic Panel 06/13/2017 [facility] Sodium 140 mmol/L 135-[address] [place] [address] [phone] Potassium 4.6 mmol/L 3.5-5.3 Chloride 105 mmol/L 98-110 Carbon Dioxide 28 mmol/L 20-31 Calcium 9.2 mg/dL 8.6-10.4 Alkaline Phosphatase 70 U/L 33-130 Ast 13 U/L 10-35 Alt 13 U/L 6-29 Bilirubin,Total 0.5 mg/dL 0.2-1.2 Glucose 109 mg/dL High 65-99 67 Urea Nitrogen 38 mg/dL High 7-25 Creatinine 1.22 mg/dL High 0.60-0.93 68 BUN/Creatinine Ratio 31.0 High 6-22 Protein,Total 6.3 g/dL 6.1-8.1 Albumin 4.1 g/dL 3.6-5.1 Globulin,Calculated 2.2 g/dL 1.9-3.7 A/G Ratio 1.8 1.0-2.5 Egfr Non-Afr. Citizen Of [place] 42 ML/MIN/1.73M2 Low > Or=60 Egfr 49 ML/MIN/1.73M2 Low > Or=60 Laboratory test 06/13/2017 [facility] Creatine 33 U/L 29-[address] Kinase,[place] [address] [phone] Hemoglobin A1c 5.5 % 0-5.6 69 Hepatic Function 06/13/2017 [facility] Alkaline Phosphatase 70 U/L 33- [address] [place] [address] [phone] Ast 13 U/L 10-35 Alt 13 U/L 6-29 Bilirubin,Total 0.5 mg/dL 0.2-1.2 Bilirubin,Direct 0.1 mg/dL < Or=0.2 Protein,Total 6.3 g/dL 6.1-8.1 Albumin 4.1 g/dL 3.6-5.1 Globulin,Calculated 2.2 g/dL 1.9-3.7 A/G Ratio 1.8 1.0-2.5 Lipid Panel 06/13/2017 [facility] Cholesterol 135 mg/dL <[address] [place] [address] [phone] HDL Cholesterol 46 mg/dL Low >50 Cholesterol/HDL Ratio 2.9 CALC <5.0 LDL Chol,Calculated 69 mg/dL <100 70 Triglycerides 117 mg/dL <150 Non-HDL Cholesterol 89 mg/dL <130 71 CBC W/ Diff & PLT 06/13/2017 [facility] WBC 6.1 thous/L 3.8-10.[address] [place] [address] [phone] RBC 3.18 mill/L Low 3.80-5.10 Hemoglobin 10.5 g/dL Low 11.7-15.5 Hematocrit 31.5 % Low 35.0-45.0 MCV 99.1 FL 80.0-100.0 MCH 33.0 pg 27.0-33.0 MCHC 33.3 g/dL 32.0-36.0 RDW 14.1 % 11.0-15.0 Platelet Count 316 thous/L 140-400 Platelet Sufficiency PENDING MPV 8.0 FL 7.5-12.5 Neutrophils,Absolute 3910 cells/L 1697-7207 Bands,Absolute PENDING Metamyelocytes,Absolute PENDING Myelocytes,Absolute PENDING Promyelocytes,Absolute PENDING Lymphocytes,Absolute 1470 cells/L 850-3900 Monocytes,Absolute 490 cells/L 200-950 Eosinophils,Absolute 140 cells/L 15-500 Basophils,Absolute 40 cells/L 0-200 Blast Cells,Absolute PENDING Nucleated RBC,Absolute PENDING Total Neutrophils,% 65 % 40-75 Bands,% PENDING Metamyelocytes,% PENDING Myelocytes,% PENDING Promyelocytes,% PENDING Total Lymphocytes,% 24 % 12-47 Monocytes,% 8 % 4-12 Eosinophils,% 2 % 0-4 Basophils,% 1 % 0-1 72 Blasts,% PENDING Nucleated RBC PENDING RBC Morphology PENDING Anisocytosis PENDING Poikilocytosis PENDING Microcytosis PENDING Macrocytosis PENDING Polychromasia PENDING Hypochromasia PENDING Target Cells PENDING Basophilic Stippling PENDING Comment PENDING General Health Panel 06/13/2017 [facility] TSH 3.03 mIU/L 0.40-4.[address] [place] [address] [phone] T4,Free 1.2 ng/dL 0.8-1.8 Laboratory test 02/28/2017 [facility] Cholesterol 131 mg/dL 125-[address] [place] [address] [phone] Hepatic Function 02/28/2017 [facility] Alkaline 70 U/L 33-[address] [place] [address] [phone] Ast 14 U/L 10-35 Alt 14 U/L 6-29 Bilirubin,Total 0.6 mg/dL 0.2-1.2 Bilirubin,Direct 0.1 mg/dL < Or=0.2 Protein,Total 6.5 g/dL 6.1-8.1 Albumin 4.0 g/dL 3.6-5.1 Globulin,Calculated 2.5 g/dL 1.9-3.7 A/G Ratio 1.6 1.0-2.5 Laboratory test 02/28/2017 [facility] Creatine 28 U/L Low 29-[address] Kinase,[place] [address] [phone] TSH & T4,Free 02/28/2017 [facility] TSH 2.65 0.40-4.[address] mIU/[place] [address] [phone] T4,Free 1.3 ng/dL 0.8-1.8 75 Laboratory test 02/28/2017 [facility] Hemoglobin A1c 5.6 % 0-5.6 [address] [place] [address] [phone] Basic Metabolic 02/28/2017 [facility] Sodium 139 mmol/L 135-[address] [place] [address] [phone] Potassium 4.5 mmol/L 3.5-5.3 Chloride 103 mmol/L 98-110 Carbon Dioxide 26 mmol/L 20-31 Calcium 9.5 mg/dL 8.6-10.4 Glucose 107 mg/dL High 65-99 77 Urea Nitrogen 36 mg/dL High 7-25 Creatinine 1.37 mg/dL High 0.60-0.93 78 BUN/Creatinine Ratio 26.5 High 6-22 Egfr Non-Afr. Citizen Of [place] 37 ML/MIN/1.73M2 Low > Or=60 Egfr 43 ML/MIN/1.73M2 Low > Or=60 Laboratory test 10/19/2016 [facility] Hemoglobin A1c 5.9 % High 0.0-5.6 [address] [place] [address] [phone] Laboratory test 10/19/2016 [facility] Cholesterol 122 Low 125-[address] mg/[place] [address] [phone] Hepatic 10/19/2016 [facility] Alkaline 63 U/L 33-130 Function Panel [address] [place] [address] [phone] Ast 17 U/L 10-35 Alt 14 U/L 6-29 Bilirubin,Total 0.6 mg/dL 0.2-1.2 Bilirubin,Direct 0.1 mg/dL < Or=0.2 Protein,Total 6.3 g/dL 6.1-8.1 Albumin 3.9 g/dL 3.6-5.1 Globulin,Calculated 2.4 g/dL 1.9-3.7 A/G Ratio 1.7 1.0-2.5 Laboratory test 10/19/2016 [facility] Creatine 112 U/L 29-[address] Kinase,[place] [address] [phone] TSH & T4,Free 10/19/2016 [facility] TSH 7.15 High 0.40-4.[address] mIU/[place] [address] [phone] T4,Free 1.0 ng/dL 0.8-1.8 Basic Metabolic Panel 10/19/2016 [facility] Sodium 140 mmol/L 135-[address] [place] [address] [phone] Potassium 4.2 mmol/L 3.5-5.3 Chloride 105 mmol/L 98-110 Carbon Dioxide 27 mmol/L 20-31 Calcium 9.9 mg/dL 8.6-10.4 Glucose 117 mg/dL High 65-99 81 Urea Nitrogen 31 mg/dL High 7-25 Creatinine 1.21 mg/dL High 0.60-0.93 82 BUN/Creatinine Ratio 25.8 High 6-22 Egfr Non-Afr. Citizen Of [place] 43 ML/MIN/1.73M2 Low > Or=60 Egfr 50 ML/MIN/1.73M2 Low > Or=60 General Health Panel 05/18/2016 [facility] TSH 5.73 mIU/L High 0.40-4.[address] [place] [address] [phone] T4,Free 1.0 ng/dL 0.8-1.8 CBC W/ Diff & PLT 05/18/2016 [facility] WBC 5.8 thous/L 3.8-10.[address] [place] [address] [phone] RBC 3.34 mill/L Low 3.80-5.10 Hemoglobin 10.8 g/dL Low 11.7-15.5 Hematocrit 32.1 % Low 35.0-45.0 MCV 96.2 FL 80.0-100.0 MCH 32.4 pg 27.0-33.0 MCHC 33.7 g/dL 32.0-36.0 RDW 14.1 % 11.0-15.0 Platelet Count 313 thous/L 140-400 Platelet Sufficiency PENDING MPV 8.0 FL 7.5-11.5 Neutrophils,Absolute 3540 cells/L [phone] Bands,Absolute PENDING Metamyelocytes,Absolute PENDING Myelocytes,Absolute PENDING Promyelocytes,Absolute PENDING Lymphocytes,Absolute 1520 cells/L 850-3900 Monocytes,Absolute 450 cells/L 200-950 Eosinophils,Absolute 240 cells/L 15-500 Basophils,Absolute 10 cells/L 0-200 Blast Cells,Absolute PENDING Nucleated RBC,Absolute PENDING Total Neutrophils,% 62 % 40-75 Bands,% PENDING Metamyelocytes,% PENDING Myelocytes,% PENDING Promyelocytes,% PENDING Total Lymphocytes,% 26 % 12-47 Monocytes,% 8 % 4-12 Eosinophils,% 4 % 0-4 Basophils,% 0 % 0-1 84 Blasts,% PENDING Nucleated RBC PENDING RBC Morphology PENDING Anisocytosis PENDING Poikilocytosis PENDING Microcytosis PENDING Macrocytosis PENDING Polychromasia PENDING Hypochromasia PENDING Target Cells PENDING Basophilic Stippling PENDING Comment PENDING Lipid Panel 05/18/2016 [facility] Cholesterol 127 mg/dL 125-200 [address] [place] [address] [phone] HDL Cholesterol 49 mg/dL > Or=46 Cholesterol/HDL Ratio 2.6 < Or=5.0 LDL Chol,Calculated 55 mg/dL <130 85 Triglycerides 116 mg/dL <150 Non-HDL Cholesterol 78 mg/dL 86 Hepatic Function 05/18/2016 [facility] Alkaline Phosphatase 71 U/L 33- 130 Panel [address] [place] [address] [phone] Ast 12 U/L 10-35 Alt 12 U/L 6-29 Bilirubin,Total 0.4 mg/dL 0.2-1.2 Bilirubin,Direct 0.1 mg/dL < Or=0.2 Protein,Total 6.6 g/dL 6.1-8.1 Albumin 4.0 g/dL 3.6-5.1 Globulin,Calculated 2.6 g/dL 1.9-3.7 A/G Ratio 1.6 1.0-2.5 Laboratory test 05/18/2016 [facility] Creatine 39 U/L 29-[address] Kinase,[place] [address] [phone] Hemoglobin A1c 5.8 % High 0.0-5.6 87 Comp Metabolic Panel 05/18/2016 [facility] Sodium 141 mmol/L 135-[address] [place] [address] [phone] Potassium 4.3 mmol/L 3.5-5.3 Chloride 105 mmol/L 98-110 Carbon Dioxide 29 mmol/L 20-31 Calcium 9.2 mg/dL 8.6-10.4 Alkaline Phosphatase 71 U/L 33-130 Ast 12 U/L 10-35 Alt 12 U/L 6-29 Bilirubin,Total 0.4 mg/dL 0.2-1.2 Glucose 117 mg/dL High 65-99 88 Urea Nitrogen 34 mg/dL High 7-25 Creatinine 1.09 mg/dL High 0.60-0.93 89 BUN/Creatinine Ratio 31.4 High 6-22 Protein,Total 6.6 g/dL 6.1-8.1 Albumin 4.0 g/dL 3.6-5.1 Globulin,Calculated 2.6 g/dL 1.9-3.7 A/G Ratio 1.6 1.0-2.5 Egfr Non-Afr. Citizen Of [place] 49 ML/MIN/1.73M2 Low > Or=60 Egfr 57 ML/MIN/1.73M2 Low > Or=60 BMP W/O Egfr 01/14/2016 [facility] Sodium 141 mmol/L 135-[address] [place] [address] [phone] Potassium 4.0 mmol/L 3.5-5.3 Chloride 102 mmol/L 98-110 Carbon Dioxide 27 mmol/L 19-30 Calcium 9.7 mg/dL 8.6-10.4 Glucose 108 mg/dL High 65-99 90 Urea Nitrogen 26 mg/dL High 7-25 Creatinine 1.13 mg/dL High 0.60-0.93 91 BUN/Creatinine Ratio 22.8 High 6-22 Laboratory test 01/14/2016 [facility] Hemoglobin A1c 6.1 % High 0.0-5.6 [address] [place] [address] [phone] Lipid Panel 01/14/2016 [facility] Cholesterol 154 125-[address] mg/[place] [address] [phone] HDL Cholesterol 55 mg/dL > Or=46 Cholesterol/HDL Ratio 2.8 < Or=5.0 LDL Chol,Calculated 71 mg/dL <130 93 Triglycerides 138 mg/dL <150 Non-HDL Cholesterol 99 mg/dL 94 Hepatic Function 01/14/2016 [facility] Alkaline Phosphatase 78 U/L 33- [address] [place] [id number] [phone] Ast 14 U/L 10-35 Alt 14 U/L 6-29 Bilirubin,Total 0.5 mg/dL 0.2-1.2 Bilirubin,Direct 0.1 mg/dL < Or=0.2 Protein,Total 6.5 g/dL 6.1-8.1 Albumin 4.0 g/dL 3.6-5.1 Globulin,Calculated 2.5 g/dL 1.9-3.7 A/G Ratio 1.6 1.0-2.5 Laboratory test 01/14/2016 [facility] Creatine 37 U/L 29-[address] [place] Kinase,[place] [address] [phone] BMP W/O Egfr 09/22/2015 [facility] Sodium 141 135-[address] mmol/[place] [address] [phone] Potassium 4.2 mmol/L 3.5-5.3 Chloride 103 mmol/L 98-110 Carbon Dioxide 30 mmol/L 19-30 Calcium 9.7 mg/dL 8.6-10.4 Glucose 118 mg/dL High 65-99 95 Urea Nitrogen 27 mg/dL High 7-25 Creatinine 1.09 mg/dL High 0.60-0.93 96 BUN/Creatinine Ratio 25.0 High 6-22 Laboratory test 09/22/2015 [facility] Hemoglobin A1c 6.1 % High 0.0-5.6 [address] [place] [address] [phone] Lipid Panel 09/22/2015 [facility] Cholesterol 162 125-[address] mg/[place] [address] [phone] HDL Cholesterol 54 mg/dL > Or=46 Cholesterol/HDL Ratio 3.0 < Or=5.0 LDL Chol,Calculated 79 mg/dL <130 98 Triglycerides 147 mg/dL <150 Non-HDL Cholesterol 108 mg/dL 99 Hepatic Function 09/22/2015 [facility] Alkaline Phosphatase 81 U/L 33- [address] [place] [address] [phone] Ast 15 U/L 10-35 Alt 16 U/L 6-29 Bilirubin,Total 0.5 mg/dL 0.2-1.2 Bilirubin,Direct 0.1 mg/dL < Or=0.2 Protein,Total 6.7 g/dL 6.1-8.1 Albumin 4.2 g/dL 3.6-5.1 Globulin,Calculated 2.5 g/dL 1.9-3.7 A/G Ratio 1.6 1.0-2.5 Laboratory test 09/22/2015 [facility] Creatine 34 U/L 29-[address] [place] Kin[place] [address] [phone] BMP W/O Egfr 06/12/2015 [facility] Sodium 140 135-[address] mmol/[place] [address] [phone] Potassium 4.0 mmol/L 3.5-5.3 Chloride 102 mmol/L 98-110 Carbon Dioxide 30 mmol/L 19-30 Calcium 10.0 mg/dL 8.6-10.4 Glucose 119 mg/dL High 65-99 100 Urea Nitrogen 24 mg/dL 7-25 Creatinine 0.99 mg/dL High 0.60-0.93 101 BUN/Creatinine Ratio 24.2 High 6-22 Laboratory test 06/12/2015 [facility] Hemoglobin A1c 6.1 % High 0.0-5.6 [address] [place] [address] [phone] Hepatic 06/12/2015 [facility] Alkaline 69 U/L 33-130 Function Panel [address] [place] [address] [phone] Ast 14 U/L 10-35 Alt 15 U/L 6-29 Bilirubin,Total 0.6 mg/dL 0.2-1.2 Bilirubin,Direct 0.1 mg/dL < Or=0.2 Protein,Total 6.6 g/dL 6.1-8.1 Albumin 4.1 g/dL 3.6-5.1 Globulin,Calculated 2.5 g/dL 1.9-3.7 A/G Ratio 1.7 1.0-2.5 Laboratory test finding 06/12/2015 [facility] Direct LDL 69 mg/dL <130 103 [address] [facility] [place] [address] [phone] Creatine Kinase,Total 32 U/L 29-143 Cholesterol 148 mg/dL 125-200 CBC W/ Diff & PLT 02/20/2015 [facility] WBC 5.5 thous/L 3.8-10.[address] [place] [address] [phone] RBC 3.57 mill/L Low 3.80-5.10 Hemoglobin 11.6 g/dL Low 11.7-15.5 Hematocrit 34.9 % Low 35.0-45.0 MCV 97.7 FL 80.0-100.0 MCH 32.6 pg 27.0-33.0 MCHC 33.4 g/dL 32.0-36.0 RDW 13.9 % 11.0-15.0 Platelet Count 310 thous/L 140-400 Platelet Sufficiency PENDING MPV 7.6 FL 7.5-11.5 Neutrophils,Absolute 3580 cells/L [phone] Bands,Absolute PENDING Metamyelocytes,Absolute PENDING Myelocytes,Absolute PENDING Promyelocytes,Absolute PENDING Lymphocytes,Absolute 1280 cells/L 850-3900 Monocytes,Absolute 440 cells/L 200-950 Eosinophils,Absolute 170 cells/L 15-500 Basophils,Absolute 40 cells/L 0-200 Blast Cells,Absolute PENDING Nucleated RBC,Absolute PENDING Total Neutrophils,% 65 % Not Established Bands,% PENDING Metamyelocytes,% PENDING Myelocytes,% PENDING Promyelocytes,% PENDING Total Lymphocytes,% 23 % Not Established Monocytes,% 8 % Not Established Eosinophils,% 3 % Not Established Basophils,% 1 % Not Established Blasts,% PENDING Nucleated RBC PENDING RBC Morphology PENDING Anisocytosis PENDING Poikilocytosis PENDING Microcytosis PENDING Macrocytosis PENDING Polychromasia PENDING Hypochromasia PENDING Target Cells PENDING Basophilic Stippling PENDING Comment PENDING BMP W/O Egfr 02/04/2015 [facility] Sodium 140 mmol/L 135-[address] [place] [address] [phone] Potassium 4.1 mmol/L 3.5-5.3 Chloride 102 mmol/L 98-110 Carbon Dioxide 30 mmol/L 19-30 Calcium 9.7 mg/dL 8.6-10.4 Glucose 117 mg/dL High 65-99 104 Urea Nitrogen 21 mg/dL 7-25 Creatinine 1.05 mg/dL High 0.60-0.93 105 BUN/Creatinine Ratio 20.0 6-22 Laboratory test 02/04/2015 [facility] Hemoglobin A1c 6.3 % High 0.0-5.6 [address] [place] [address] [phone] Hepatic 02/04/2015 [facility] Alkaline 70 U/L 33-130 Function Panel [address] [place] [address] [phone] Ast 16 U/L 10-35 Alt 19 U/L 6-29 Bilirubin,Total 0.5 mg/dL 0.2-1.2 Bilirubin,Direct 0.1 mg/dL < Or=0.2 Protein,Total 6.4 g/dL 6.1-8.1 Albumin 3.9 g/dL 3.6-5.1 Globulin,Calculated 2.5 g/dL 1.9-3.7 A/G Ratio 1.6 1.0-2.5 Laboratory test 02/04/2015 [facility] Creatine 32 U/L 29-[address] [place] [address] [phone] Direct LDL 79 mg/dL <130 107 Cholesterol 150 mg/dL 125-200 BMP W/O Egfr 05/13/2014 [facility] Sodium 140 mmol/L 135-[address] [place] [address] [phone] Potassium 4.0 mmol/L 3.5-5.3 Chloride 100 mmol/L 98-110 Carbon Dioxide 30 mmol/L 19-30 Calcium 9.6 mg/dL 8.6-10.4 Glucose 114 mg/dL High 65-99 108 Urea Nitrogen 27 mg/dL High 7-25 Creatinine 1.11 mg/dL High 0.60-0.93 109 BUN/Creatinine Ratio 24.6 High 6-22 Laboratory test 05/13/2014 [facility] Hemoglobin A1c 6.3 % High 0.0-5.6 [address] [place] [address] [phone] Hepatic 05/13/2014 [facility] Alkaline 68 U/L 33-130 Function Panel [address] [place] [address] [phone] Ast 15 U/L 10-35 Alt 19 U/L 6-29 Bilirubin,Total 0.5 mg/dL 0.2-1.2 Bilirubin,Direct 0.1 mg/dL < Or=0.2 Protein,Total 6.3 g/dL 6.1-8.1 Albumin 4.0 g/dL 3.6-5.1 Globulin,Calculated 2.3 g/dL 1.9-3.7 A/G Ratio 1.8 1.0-2.5 Laboratory test 05/13/2014 [facility] Creatine 30 U/L 29-[address] [employer],[place] [address] [phone] Cholesterol 138 mg/dL 125-200 Direct LDL 69 mg/dL <130 111 BMP W/O Egfr 05/08/2014 [facility] Sodium 141 mmol/L 135-[address] [place] [address] [phone] Potassium 4.2 mmol/L 3.5-5.3 Chloride 102 mmol/L 98-110 Carbon Dioxide 30 mmol/L 19-30 Calcium 10.2 mg/dL 8.6-10.4 Glucose 112 mg/dL High 65-99 112 Urea Nitrogen 25 mg/dL 7-25 Creatinine 1.24 mg/dL High 0.60-0.93 113 BUN/Creatinine Ratio 20.4 6-22 CBC W/ Diff & PLT 05/08/2014 [facility] WBC 6.8 thous/L 3.8-10.8 [address] [place] [address] [phone] RBC 3.62 mill/L Low 3.80-5.10 Hemoglobin 12.4 g/dL 11.7-15.5 Hematocrit 36.2 % 35.0-45.0 MCV 99.9 FL 80.0-100.0 MCH 34.2 pg High 27.0-33.0 MCHC 34.3 g/dL 32.0-36.0 RDW 14.3 % 11.0-15.0 Platelet Count 354 thous/L 140-400 Platelet Sufficiency PENDING Neutrophils,Absolute 4320 cells/L [phone] Bands,Absolute PENDING Metamyelocytes,Absolute PENDING Myelocytes,Absolute PENDING Promyelocytes,Absolute PENDING Lymphocytes,Absolute 1660 cells/L 850-3900 Monocytes,Absolute 590 cells/L 200-950 Eosinophils,Absolute 200 cells/L 15-500 Basophils,Absolute 50 cells/L 0-200 Blast Cells,Absolute PENDING Nucleated RBC,Absolute PENDING Total Neutrophils,% 63 % Not Established Bands,% PENDING Metamyelocytes,% PENDING Myelocytes,% PENDING Promyelocytes,% PENDING Total Lymphocytes,% 24 % Not Established Monocytes,% 9 % Not Established Eosinophils,% 3 % Not Established Basophils,% 1 % Not Established Blasts,% PENDING Nucleated RBC PENDING RBC Morphology PENDING Anisocytosis PENDING Poikilocytosis PENDING Microcytosis PENDING Macrocytosis PENDING Polychromasia PENDING Hypochromasia PENDING Target Cells PENDING Basophilic Stippling PENDING Comment PENDING Comp Metabolic Panel 01/14/2014 [facility] Sodium 144 mmol/L 135-146 [address] [facility] [place] [address] [phone] Potassium 3.9 mmol/L 3.5-5.3 Chloride 103 mmol/L 98-110 Carbon Dioxide 28 mmol/L 19-30 Calcium 9.4 mg/dL 8.6-10.4 Alkaline Phosphatase 68 U/L 33-130 Ast 15 U/L 10-35 Alt 15 U/L 6-29 Bilirubin,Total 0.7 mg/dL 0.2-1.2 Glucose 116 mg/dL High 65-99 114 Urea Nitrogen 31 mg/dL High 7-25 Creatinine 1.10 mg/dL High 0.60-0.93 115 BUN/Creatinine Ratio 28.5 High 6-22 Protein,Total 6.6 g/dL 6.1-8.1 Albumin 4.0 g/dL 3.6-5.1 Globulin,Calculated 2.6 g/dL 1.9-3.7 A/G Ratio 1.6 1.0-2.5 Egfr Non-Afr. Citizen [place] 49 ML/MIN/1.73M2 Low > Or=60 Egfr 57 ML/MIN/1.73M2 Low > Or=60 CBC W/ Diff & PLT 01/14/2014 [facility] WBC 5.7 thous/L 3.8-10.8 [address] [place], [place] [id number] [phone] RBC 3.78 mill/L Low 3.80-5.10 Hemoglobin 12.9 g/dL 11.7-15.5 Hematocrit 37.4 % 35.0-45.0 MCV 98.9 FL 80.0-100.0 MCH 34.2 pg High 27.0-33.0 MCHC 34.5 g/dL 32.0-36.0 RDW 13.3 % 11.0-15.0 Platelet Count 312 thous/L 140-400 Platelet Sufficiency PENDING Neutrophils,Absolute 3430 cells/L 5836-6286 Bands,Absolute PENDING Metamyelocytes,Absolute PENDING Myelocytes,Absolute PENDING Promyelocytes,Absolute PENDING Lymphocytes,Absolute 1530 cells/L 850-3900 Monocytes,Absolute 530 cells/L 200-950 Eosinophils,Absolute 200 cells/L 15-500 Basophils,Absolute 30 cells/L 0-200 Blast Cells,Absolute PENDING Nucleated RBC,Absolute PENDING Total Neutrophils,% 60 % Not Established Bands,% PENDING Metamyelocytes,% PENDING Myelocytes,% PENDING Promyelocytes,% PENDING Total Lymphocytes,% 27 % Not Established Monocytes,% 9 % Not Established Eosinophils,% 3 % Not Established Basophils,% 0 % Not Established Blasts,% PENDING Nucleated RBC PENDING RBC Morphology PENDING Anisocytosis PENDING Poikilocytosis PENDING Microcytosis PENDING Macrocytosis PENDING Polychromasia PENDING Hypochromasia PENDING Target Cells PENDING Basophilic Stippling PENDING Comment PENDING Lipid Panel 01/14/2014 [facility] Cholesterol 168 mg/dL 125-[address] [place] [address] [phone] HDL Cholesterol 42 mg/dL Low > Or=46 Cholesterol/HDL Ratio 4.0 < Or=5.0 LDL Chol,Calculated 82 mg/dL <130 116 Triglycerides 218 mg/dL High <150 Non-HDL Cholesterol 126 mg/dL 117 Laboratory test 01/14/2014 [facility] Creatine 72 U/L 29-[address] Kinase,[place] [address] [phone] Hepatic Function 01/14/2014 [facility] Alkaline 68 U/L 33-[address] [place] [address] [phone] Ast 15 U/L 10-35 Alt 15 U/L 6-29 Bilirubin,Total 0.7 mg/dL 0.2-1.2 Bilirubin,Direct 0.1 mg/dL < Or=0.2 Protein,Total 6.6 g/dL 6.1-8.1 Albumin 4.0 g/dL 3.6-5.1 Globulin,Calculated 2.6 g/dL 1.9-3.7 A/G Ratio 1.6 1.0-2.5 Laboratory test 01/14/2014 [facility] Hemoglobin A1c 6.3 % High 0.0-5.6 [address] [place] [address] [phone] Laboratory test 01/14/2014 [facility] Esr,[place] 11 0-[address] MM/[place] [address] [phone] TSH & T4,Free 01/14/2014 [facility] TSH 4.39 0.40-4.[address] mIU/[place] [address] [phone] T4,Free 1.1 ng/dL 0.8-1.8 1 FASTING 2 LDL-C is now calculated using the Thomas calculation, which is a validated novel method providing better accuracy than the Friedewald equation in the estimation of LDL-C. Terry GARCES et al.JUVENTINO.2013;310(19):4088-8648 Desirable range <100 mg/dL for primary prevention; <70 mg/dL for patients with CHD or diabetic patients with >or=2 CHD risk factors. For additional information, please refer to http://education.Kiio/faq/NDJ217(This link is being provided for informational/educational purposes only.) 3 For patients with diabetes plus 1 major ASCVD risk factor, treating to a non-HDL-C goal of <100 mg/dL (LDL-C of <70 mg/ dL) is considered a therapeutic option. 4 Relative blood cell counts (%) should be compared with absolute cell counts (cells/mcL). Relative counts may not be clinically meaningful if the absolute count of one or more cell type is decreased. Reference ranges for relative cell counts derived from: A Manual of Laboratory and Diagnostics Tests, 9th Ed, [employer], 2015. Pediatric Reference Intervals, 7th Ed, [facility], 2011. 5 Reference range for high altitude clients: 18-30 mmol/L 6 GLUCOSE REFERENCE RANGE BASED ON FASTING SPECIMEN. 7 The upper reference limit for Creatinine is approximately 13% higher for people identified as -Citizen Of [place]. 8 REFERENCE RANGES BELOW ARE APPLICABLE TO FEMALES FIRST TRIMESTER - 0.26 - 2.66 mIU/L SECOND TRIMESTER - 0.55 - 2.73 mIU/L THIRD TRIMESTER - 0.43 - 2.91 mIU/L 9 For someone without known diabetes, a hemoglobin A1C value between 5.7% and 6.4% is consistent with prediabetes and should be confirmed with a follow-up test. For someone with known diabetes, a value <7% indicates that their diabetes is well controlled. A1C targets should be individualized based on duration of diabetes, age, co-morbid conditions and other considerations. This assay result is consistent with an increased risk of diabetes. Currently, no consensus exists regarding use of hemoglobin A1C for diagnosis of diabetes in children. FOR DIAGNOSTIC PURPOSES: A1C VALUE(% OF TOTAL HEMOGLOBIN) INTERPRETATION < 5.7 CONSISTENT WITH THE ABSENCE OF DIABETES 5.7 - 6.4 CONSISTENT WITH INCREASED RISK OF DIABETES > OR=6.5 CONSISTENT WITH DIABETES FOR MONITORING PURPOSES (ADA GUIDELINNES): A1C VALUE(% OF TOTAL HEMOGLOBIN) INTERPRETATION < 6.5 ACHIEVES STRINGENT GLYCEMIC GOAL < 7.0 ACHIEVES GENERAL GLYCEMIC GOAL(NON- ADULTS) < 8.0 ACHIEVES LESS STRINGENT GLYCEMIC GOAL 10 LDL-C is now calculated using the Terry-Lyle calculation, which is a validated novel method providing better accuracy than the Friedewald equation in the estimation of LDL-C. Terry GARCES et al.JUVENTINO.2013;310(19):2864-5538 Desirable range <100 mg/dL for primary prevention; <70 mg/dL for patients with CHD or diabetic patients with >or=2 CHD risk factors. For additional information, please refer to http://education.Kiio/faq/JEW438(This link is being provided for informational/educational purposes only.) 11 For patients with diabetes plus 1 major ASCVD risk factor, treating to a non-HDL-C goal of <100 mg/dL (LDL-C of <70 mg/ dL) is considered a therapeutic option. 12 Reference range for high altitude clients: 18-30 mmol/L 13 GLUCOSE REFERENCE RANGE BASED ON FASTING SPECIMEN. 14 The upper reference limit for Creatinine is approximately 13% higher for people identified as -Citizen Of [place]. 15 Relative blood cell counts (%) should be compared with absolute cell counts (cells/mcL). Relative counts may not be clinically meaningful if the absolute count of one or more cell type is decreased. Reference ranges for relative cell counts derived from: A Manual of Laboratory and Diagnostics Tests, 9th Ed, [employer], 2015. Pediatric Reference Intervals, 7th Ed, [employer], 2011. 16 REFERENCE RANGES BELOW ARE APPLICABLE TO FEMALES FIRST TRIMESTER - 0.26 - 2.66 mIU/L SECOND TRIMESTER - 0.55 - 2.73 mIU/L THIRD TRIMESTER - 0.43 - 2.91 mIU/L 17 REFERENCE RANGES BELOW ARE APPLICABLE TO FEMALES FIRST TRIMESTER - 0.26 - 2.66 mIU/L SECOND TRIMESTER - 0.55 - 2.73 mIU/L THIRD TRIMESTER - 0.43 - 2.91 mIU/L 18 LDL-C is now calculated using the Terry-Lyle calculation, which is a validated novel method providing better accuracy than the Friedewald equation in the estimation of LDL-C. Terry SS et al.JUVENTINO.2013;310(19):9091-9939 Desirable range <100 mg/dL for primary prevention; <70 mg/dL for patients with CHD or diabetic patients with >or=2 CHD risk factors. For additional information, please refer to http://education.[employer]/faq/JFM852(This link is being provided for informational/educational purposes only.) 19 For patients with diabetes plus 1 major ASCVD risk factor, treating to a non-HDL-C goal of <100 mg/dL (LDL-C of <70 mg/ dL) is considered a therapeutic option. 20 Relative blood cell counts (%) should be compared with absolute cell counts (cells/mcL). Relative counts may not be clinically meaningful if the absolute count of one or more cell type is decreased. Reference ranges for relative cell counts derived from: A Manual of Laboratory and Diagnostics Tests, 9th Ed, [employer], 2015. Pediatric Reference Intervals, 7th Ed, [facility], 2011. 21 GLUCOSE REFERENCE RANGE BASED ON FASTING SPECIMEN. 22 The upper reference limit for Creatinine is approximately 13% higher for people identified as -Citizen [place]. 23 GLUCOSE REFERENCE RANGE BASED ON FASTING SPECIMEN. 24 The upper reference limit for Creatinine is approximately 13% higher for people identified as -Citizen Of [place]. 25 For the purpose of screening for the presence of diabetes: <5.7% Consistent with the absence of diabetes 5.7-6.4% Consistent with the increased risk of diabetes (prediabetes) >or=6.5% Consistent with diabetes This assay result is conistent with a decreased risk of diabetes. Currently, no consensus exists regarding use of hemoglobin A1C for diagnosis of diabetes in children. According to [place] Diabetes Association (ADA) guidelines, hemoglobin A1C <7.0% represents optimal control in non- diabetic patients. Different metrics may apply to specific patient populations. Standards of Medical Care in Diabetes (ADA) FOR DIAGNOSTIC PURPOSES: A1C VALUE(% OF TOTAL HEMOGLOBIN) INTERPRETATION < 5.7 CONSISTENT WITH THE ABSENCE OF DIABETES 5.7 - 6.4 CONSISTENT WITH INCREASED RISK OF DIABETES > OR=6.5 CONSISTENT WITH DIABETES FOR MONITORING PURPOSES (ADA GUIDELINNES): A1C VALUE(% OF TOTAL HEMOGLOBIN) INTERPRETATION < 6.5 ACHIEVES STRINGENT GLYCEMIC GOAL < 7.0 ACHIEVES GENERAL GLYCEMIC GOAL(NON- ADULTS) < 8.0 ACHIEVES LESS STRINGENT GLYCEMIC GOAL 26 GLUCOSE REFERENCE RANGE BASED ON FASTING SPECIMEN. 27 The upper reference limit for Creatinine is approximately 13% higher for people identified as -Citizen Of [place]. 28 GLUCOSE REFERENCE RANGE BASED ON FASTING SPECIMEN. 29 The upper reference limit for Creatinine is approximately 13% higher for people identified as -Citizen Of [place]. 30 NO DX 31 Note: Persistent reduction for 3 months or more in an eGFR <60 mL/min/1.73 m2 defines CKD. Patients with eGFR values >/=60 mL/min/1.73 m2 may also have CKD if evidence of persistent proteinuria is present. The original MDRD equation for estimated GFR is not valid for patients less than 18 years of age. Additional information may be found at [email or web address]. 32 BRONCHITIS, ABNL EKG 33 Note: Persistent reduction for 3 months or more in an eGFR <60 mL/min/1.73 m2 defines CKD. Patients with eGFR values >/=60 mL/min/1.73 m2 may also have CKD if evidence of persistent proteinuria is present. The original MDRD equation for estimated GFR is not valid for patients less than 18 years of age. Additional information may be found at [email or web address]. 34 Note: Persistent reduction for 3 months or more in an eGFR <60 mL/min/1.73 m2 defines CKD. Patients with eGFR values >/=60 mL/min/1.73 m2 may also have CKD if evidence of persistent proteinuria is present. The original MDRD equation for estimated GFR is not valid for patients less than 18 years of age. Additional information may be found at [email or web address]. 35 SITTING UP IN BED 36 Presumptive negative for L. pneumophila serogroup 1 antigen in urine, suggesting no recent or current infection. Legionnaires' disease cannot be ruled out since other serogroups and species may also cause disease. 37 Elevated levels of HbA1c suggest the need for more aggressive treatment of glycemia. The [place] Diabetes Association recommends that a primary goal of therapy should be a HbA1c of <7% and that physicians should re-evaluate the treatment regimen in patients with HbA1c values consistently >8%. 38 Reference Guidelines*: Desirable: ........... < 200 mg/dL Borderline High: ..... 200-239 mg/dL High: ................ >=240 mg/dL * The National Cholesterol Education Program (NCEP) 39 Reference Guidelines*: Normal: ............. < 150 mg/dL Borderline High: .... 150-199 mg/dL High: ............... 200-499 mg/dL Very High: .......... > 500 mg/dL * Source: National Cholesterol Education Program (NCEP) 40 Reference Guidelines*: Low HDL: ..... < 40 mg/dL Normal: ..... 40-60 mg/dL Desirable: ... > 60 mg/dL *The National Cholesterol Education Program(NCEP) 41 Reference Guidelines*: Optimal:........... <100 mg/dL Near Optimal....... 100-129 mg/dL Borderline High.... 130-159 mg/dL High............... 160-189 mg/dL Very High.......... >=190 mg/dL * Source: National Cholesterol Education Program (NCEP) 42 Note: Persistent reduction for 3 months or more in an eGFR <60 mL/min/1.73 m2 defines CKD. Patients with eGFR values >/=60 mL/min/1.73 m2 may also have CKD if evidence of persistent proteinuria is present. The original MDRD equation for estimated GFR is not valid for patients less than 18 years of age. Additional information may be found at [email or web address]. 43 Tests: BNP Instructions: 44 No Legionella species isolated. Performed at: - [facility] [address] [id number] Knife Operator: Ene Mason MD, Phone: [phone] 45 Tests: TSH Instructions: 46 Tests: Mg, Phos, CRP Instructions: 47 NO GROWTH: FINAL REPORT 48 NO GROWTH: FINAL REPORT 49 COUGH, POSSIBLE CLOT IN LUNG PER CC 50 0.0 - 0.045 ng/mL: Normal 0.046 - 0.5 ng/mL: Suggestive 0.6 - 1.5 ng/mL: Consistent 51 Note: Persistent reduction for 3 months or more in an eGFR <60 mL/min/1.73 m2 defines CKD. Patients with eGFR values >/=60 mL/min/1.73 m2 may also have CKD if evidence of persistent proteinuria is present. The original MDRD equation for estimated GFR is not valid for patients less than 18 years of age. Additional information may be found at [email or web address]. 52 Values below the stated reference ranges of AST and ALT can be seen in normal populations. Clinical correlation is suggested. 53 BRONCHITIS, ABNL EKG 54 NO GROWTH: FINAL REPORT 55 NO GROWTH: FINAL REPORT 56 NO GROWTH: FINAL REPORT 57 COUGH, POSSIBLE CLOT IN LUNG PER CC 58 POSSIBLE UROGENITAL CONTAMINATION. 59 URINE, CLEAN CATCH 60 Chief Of Anesthesiology: [id number] 61 LDL-C is now calculated using the Terry-Lyle calculation, which is a validated novel method providing better accuracy than the Friedewald equation in the estimation of LDL-C. Terry GARCES et al.JUVENTINO.2013;310(19):0051-8392 (http://education.Impact [employer]ius.[employer]/faq/MCU046) Desirable range <100 mg/dL for patients with CHD or Diabetes and <70 mg/dL for Diabetic patients with known heart disease 62 For patients with diabetes plus 1 major ASCVD risk factor, treating to a non-HDL-C goal of <100 mg/dL (LDL-C of <70 mg/ dL) is considered a therapeutic option. 63 For the purpose of screening for the presence of diabetes: <5.7% Consistent with the absence of diabetes 5.7-6.4% Consistent with the increased risk of diabetes (prediabetes) >or=6.5% Consistent with diabetes This assay result is conistent with a decreased risk of diabetes. Currently, no consensus exists regarding use of hemoglobin A1C for diagnosis of diabetes in children. According to [place] Diabetes Association (ADA) guidelines, hemoglobin A1C <7.0% represents optimal control in non- diabetic patients. Different metrics may apply to specific patient populations. Standards of Medical Care in Diabetes (ADA) FOR DIAGNOSTIC PURPOSES: A1C VALUE(% OF TOTAL HEMOGLOBIN) INTERPRETATION < 5.7 CONSISTENT WITH THE ABSENCE OF DIABETES 5.7 - 6.4 CONSISTENT WITH INCREASED RISK OF DIABETES > OR=6.5 CONSISTENT WITH DIABETES FOR MONITORING PURPOSES (ADA GUIDELINNES): A1C VALUE(% OF TOTAL HEMOGLOBIN) INTERPRETATION < 6.5 ACHIEVES STRINGENT GLYCEMIC GOAL < 7.0 ACHIEVES GENERAL GLYCEMIC GOAL(NON- ADULTS) < 8.0 ACHIEVES LESS STRINGENT GLYCEMIC GOAL 64 GLUCOSE REFERENCE RANGE BASED ON FASTING SPECIMEN. 65 The upper reference limit for Creatinine is approximately 13% higher for people identified as -Citizen Of [place]. 66 FASTING 67 GLUCOSE REFERENCE RANGE BASED ON FASTING SPECIMEN. 68 The upper reference limit for Creatinine is approximately 13% higher for people identified as -Citizen Of [place]. 69 For the purpose of screening for the presence of diabetes: <5.7% Consistent with the absence of diabetes 5.7-6.4% Consistent with the increased risk of diabetes (prediabetes) >or=6.5% Consistent with diabetes This assay result is conistent with a decreased risk of diabetes. Currently, no consensus exists regarding use of hemoglobin A1C for diagnosis of diabetes in children. According to [place] Diabetes Association (ADA) guidelines, hemoglobin A1C <7.0% represents optimal control in non- diabetic patients. Different metrics may apply to specific patient populations. Standards of Medical Care in Diabetes (ADA) FOR DIAGNOSTIC PURPOSES: A1C VALUE(% OF TOTAL HEMOGLOBIN) INTERPRETATION < 5.7 CONSISTENT WITH THE ABSENCE OF DIABETES 5.7 - 6.4 CONSISTENT WITH INCREASED RISK OF DIABETES > OR=6.5 CONSISTENT WITH DIABETES FOR MONITORING PURPOSES (ADA GUIDELINNES): A1C VALUE(% OF TOTAL HEMOGLOBIN) INTERPRETATION < 6.5 ACHIEVES STRINGENT GLYCEMIC GOAL < 7.0 ACHIEVES GENERAL GLYCEMIC GOAL(NON- ADULTS) < 8.0 ACHIEVES LESS STRINGENT GLYCEMIC GOAL 70 [facility] calculation is a validated novel method that provides better accuracy than the Friedewald equation in the estimation of LDL-C, particularly when TG levels are 150-400 mg/dL and LDL-C levels are lower than 70 mg/dL. Reference: Terry GARCES et al. Comparison of a Novel Method vs the Friedewald Equation for Estimating Low-Density Lipoprotein Cholesterol Levels From the Standard Lipid Profile. JUVENTINO. 2013;310(19): 5595-8219. Desirable range <100 mg/dL for patients with CHD or Diabetes and <70 mg/dL for Diabetic patients with known heart disease 71 For patients with diabetes plus 1 major ASCVD risk factor, treating to a non-HDL-C goal of <100 mg/dL (LDL-C of <70 mg/ dL) is considered a therapeutic option. 72 Relative blood cell counts (%) should be compared with absolute cell counts (cells/mcL). Relative counts may not be clinically meaningful if the absolute count of one or more cell type is decreased. Reference ranges for relative cell counts derived from: A Manual of Laboratory and Diagnostics Tests, 9th Ed, [employer], 2015. Pediatric Reference Intervals, 7th Ed, [facility], 2011. 73 REFERENCE RANGES BELOW ARE APPLICABLE TO FEMALES FIRST TRIMESTER - 0.26 - 2.66 mIU/L SECOND TRIMESTER - 0.55 - 2.73 mIU/L THIRD TRIMESTER - 0.43 - 2.91 mIU/L 74 REFERENCE RANGES BELOW ARE APPLICABLE TO FEMALES FIRST TRIMESTER - 0.26 - 2.66 mIU/L SECOND TRIMESTER - 0.55 - 2.73 mIU/L THIRD TRIMESTER - 0.43 - 2.91 mIU/L 75 *[facility] 76 For the purpose of screening for the presence of diabetes: <5.7% Consistent with the absence of diabetes 5.7-6.4% Consistent with the increased risk of diabetes (prediabetes) >or=6.5% Consistent with diabetes This assay result is conistent with a decreased risk of diabetes. Currently, no consensus exists regarding use of hemoglobin A1C for diagnosis of diabetes in children. According to [place] Diabetes Association (ADA) guidelines, hemoglobin A1C <7.0% represents optimal control in non- diabetic patients. Different metrics may apply to specific patient populations. Standards of Medical Care in Diabetes (ADA) FOR DIAGNOSTIC PURPOSES: A1C VALUE(% OF TOTAL HEMOGLOBIN) INTERPRETATION < 5.7 CONSISTENT WITH THE ABSENCE OF DIABETES 5.7 - 6.4 CONSISTENT WITH INCREASED RISK OF DIABETES > OR=6.5 CONSISTENT WITH DIABETES FOR MONITORING PURPOSES (ADA GUIDELINNES): A1C VALUE(% OF TOTAL HEMOGLOBIN) INTERPRETATION < 6.5 ACHIEVES STRINGENT GLYCEMIC GOAL < 7.0 ACHIEVES GENERAL GLYCEMIC GOAL(NON- ADULTS) < 8.0 ACHIEVES LESS STRINGENT GLYCEMIC GOAL 77 GLUCOSE REFERENCE RANGE BASED ON FASTING SPECIMEN. 78 The upper reference limit for Creatinine is approximately 13% higher for people identified as -Citizen Of [place]. 79 According to ADA guidelines, hemoglobin A1c <7.0% represents optimal control in non- diabetic patients. Different metrics may apply to specific patient populations. Standards of Medical Care in Diabetes-2013. Diabetes Care. 2013;36:s11-s66 For the purpose of screening for the presence of diabetes: A1C VALUE INTERPRETATION <5.7% Consistent with the absence of diabetes 5.7 - 6.4% Consistent with increased risk for diabetes (prediabetes) > or=6.5% Consistent with diabetes Currently, no consensus exists regarding use of hemoglobin A1C for diagnosis of diabetes in children. 80 REFERENCE RANGES BELOW ARE APPLICABLE TO FEMALES FIRST TRIMESTER - 0.26 - 2.66 mIU/L SECOND TRIMESTER - 0.55 - 2.73 mIU/L THIRD TRIMESTER - 0.43 - 2.91 mIU/L 81 GLUCOSE REFERENCE RANGE BASED ON FASTING SPECIMEN. 82 The upper reference limit for Creatinine is approximately 13% higher for people identified as -Citizen Of [place]. 83 REFERENCE RANGES BELOW ARE APPLICABLE TO FEMALES FIRST TRIMESTER - 0.26 - 2.66 mIU/L SECOND TRIMESTER - 0.55 - 2.73 mIU/L THIRD TRIMESTER - 0.43 - 2.91 mIU/L 84 Relative blood cell counts (%) should be compared with absolute cell counts (cells/mcL). Relative counts may not be clinically meaningful if the absolute count of one or more cell type is decreased. Reference ranges for relative cell counts derived from: A Manual of Laboratory and Diagnostics Tests, 9th Ed, [employer], 2015. Pediatric Reference Intervals, 7th Ed, [facility], 2011. 85 LDL-CHOLESTEROL RISK CATEGORY* GOAL VERY HIGH (E.G. DIABETES + CVD) <70 MG/DL HIGH (DIABETICS; CHD RISK EQUIVALENTS) <100 MG/DL MODERATELY HIGH (MULTIPLE(2+) RISK FACTORS) <130 MG/DL 0 TO 1 RISK FACTORS <160 MG/DL * NCEP REPORT. CIRCULATION 2004; 110: 227-239 86 Target for non-HDL cholesterol is 30 mg/dL higher than LDL cholesterol target. 87 According to ADA guidelines, hemoglobin A1c <7.0% represents optimal control in non- diabetic patients. Different metrics may apply to specific patient populations. Standards of Medical Care in Diabetes-2013. Diabetes Care. 2013;36:s11-s66 For the purpose of screening for the presence of diabetes: A1C VALUE INTERPRETATION <5.7% Consistent with the absence of diabetes 5.7 - 6.4% Consistent with increased risk for diabetes (prediabetes) > or=6.5% Consistent with diabetes Currently, no consensus exists regarding use of hemoglobin A1C for diagnosis of diabetes in children. 88 GLUCOSE REFERENCE RANGE BASED ON FASTING SPECIMEN. 89 The upper reference limit for Creatinine is approximately 13% higher for people identified as -Citizen Of [place]. 90 GLUCOSE REFERENCE RANGE BASED ON FASTING SPECIMEN. 91 The upper reference limit for Creatinine is approximately 13% higher for people identified as -Citizen Of [place]. 92 According to ADA guidelines, hemoglobin A1c <7.0% represents optimal control in non- diabetic patients. Different metrics may apply to specific patient populations. Standards of Medical Care in Diabetes-2013. Diabetes Care. 2013;36:s11-s66 For the purpose of screening for the presence of diabetes: A1C VALUE INTERPRETATION <5.7% Consistent with the absence of diabetes 5.7 - 6.4% Consistent with increased risk for diabetes (prediabetes) > or=6.5% Consistent with diabetes Currently, no consensus exists regarding use of hemoglobin A1C for diagnosis of diabetes in children. 93 LDL-CHOLESTEROL RISK CATEGORY* GOAL VERY HIGH (E.G. DIABETES + CVD) <70 MG/DL HIGH (DIABETICS; CHD RISK EQUIVALENTS) <100 MG/DL MODERATELY HIGH (MULTIPLE(2+) RISK FACTORS) <130 MG/DL 0 TO 1 RISK FACTORS <160 MG/DL * NCEP REPORT. CIRCULATION 2004; 110: 227-239 94 Target for non-HDL cholesterol is 30 mg/dL higher than LDL cholesterol target. 95 GLUCOSE REFERENCE RANGE BASED ON FASTING SPECIMEN. 96 The upper reference limit for Creatinine is approximately 13% higher for people identified as -Citizen Of [place]. 97 According to ADA guidelines, hemoglobin A1c <7.0% represents optimal control in non- diabetic patients. Different metrics may apply to specific patient populations. Standards of Medical Care in Diabetes-2013. Diabetes Care. 2013;36:s11-s66 For the purpose of screening for the presence of diabetes: A1C VALUE INTERPRETATION <5.7% Consistent with the absence of diabetes 5.7 - 6.4% Consistent with increased risk for diabetes (prediabetes) > or=6.5% Consistent with diabetes Currently, no consensus exists regarding use of hemoglobin A1C for diagnosis of diabetes in children. 98 LDL-CHOLESTEROL RISK CATEGORY* GOAL VERY HIGH (E.G. DIABETES + CVD) <70 MG/DL HIGH (DIABETICS; CHD RISK EQUIVALENTS) <100 MG/DL MODERATELY HIGH (MULTIPLE(2+) RISK FACTORS) <130 MG/DL 0 TO 1 RISK FACTORS <160 MG/DL * NCEP REPORT. CIRCULATION 2004; 110: 227-239 99 Target for non-HDL cholesterol is 30 mg/dL higher than LDL cholesterol target. 100 GLUCOSE REFERENCE RANGE BASED ON FASTING SPECIMEN. 101 The upper reference limit for Creatinine is approximately 13% higher for people identified as -Citizen Of [place]. 102 According to ADA guidelines, hemoglobin A1c <7.0% represents optimal control in non- diabetic patients. Different metrics may apply to specific patient populations. Standards of Medical Care in Diabetes-2013. Diabetes Care. 2013;36:s11-s66 For the purpose of screening for the presence of diabetes: A1C VALUE INTERPRETATION <5.7% Consistent with the absence of diabetes 5.7 - 6.4% Consistent with increased risk for diabetes (prediabetes) > or=6.5% Consistent with diabetes Currently, no consensus exists regarding use of hemoglobin A1C for diagnosis of diabetes in children. 103 LDL-CHOLESTEROL RISK CATEGORY* GOAL VERY HIGH (E.G. DIABETES + CVD) <70 MG/DL HIGH (DIABETICS; CHD RISK EQUIVALENTS) <100 MG/DL MODERATELY HIGH (MULTIPLE(2+) RISK FACTORS) <130 MG/DL 0 TO 1 RISK FACTORS <160 MG/DL * NCEP REPORT. CIRCULATION 2004; 110: 227-239 104 GLUCOSE REFERENCE RANGE BASED ON FASTING SPECIMEN. 105 The upper reference limit for Creatinine is approximately 13% higher for people identified as -Citizen Of [place]. 106 According to ADA guidelines, hemoglobin A1c <7.0% represents optimal control in non- diabetic patients. Different metrics may apply to specific patient populations. Standards of Medical Care in Diabetes-2013. Diabetes Care. 2013;36:s11-s66 For the purpose of screening for the presence of diabetes: A1C VALUE INTERPRETATION <5.7% Consistent with the absence of diabetes 5.7 - 6.4% Consistent with increased risk for diabetes (prediabetes) > or=6.5% Consistent with diabetes Currently, no consensus exists regarding use of hemoglobin A1C for diagnosis of diabetes in children. 107 LDL-CHOLESTEROL RISK CATEGORY* GOAL VERY HIGH (E.G. DIABETES + CVD) <70 MG/DL HIGH (DIABETICS; CHD RISK EQUIVALENTS) <100 MG/DL MODERATELY HIGH (MULTIPLE(2+) RISK FACTORS) <130 MG/DL 0 TO 1 RISK FACTORS <160 MG/DL * NCEP REPORT. CIRCULATION 2004; 110: 227-239 108 GLUCOSE REFERENCE RANGE BASED ON FASTING SPECIMEN. 109 The upper reference limit for Creatinine is approximately 13% higher for people identified as -Citizen Of [place]. 110 According to ADA guidelines, hemoglobin A1c <7.0% represents optimal control in non- diabetic patients. Different metrics may apply to specific patient populations. Standards of Medical Care in Diabetes-2013. Diabetes Care. 2013;36:s11-s66 For the purpose of screening for the presence of diabetes: A1C VALUE INTERPRETATION <5.7% Consistent with the absence of diabetes 5.7 - 6.4% Consistent with increased risk for diabetes (prediabetes) > or=6.5% Consistent with diabetes Currently, no consensus exists regarding use of hemoglobin A1C for diagnosis of diabetes in children. 111 LDL-CHOLESTEROL RISK CATEGORY* GOAL VERY HIGH (E.G. DIABETES + CVD) <70 MG/DL HIGH (DIABETICS; CHD RISK EQUIVALENTS) <100 MG/DL MODERATELY HIGH (MULTIPLE(2+) RISK FACTORS) <130 MG/DL 0 TO 1 RISK FACTORS <160 MG/DL * NCEP REPORT. CIRCULATION 2004; 110: 227-239 112 GLUCOSE REFERENCE RANGE BASED ON FASTING SPECIMEN. 113 The upper reference limit for Creatinine is approximately 13% higher for people identified as -Citizen Of [place]. 114 GLUCOSE REFERENCE RANGE BASED ON FASTING SPECIMEN. 115 The upper reference limit for Creatinine is approximately 13% higher for people identified as -Citizen Of [place]. 116 LDL-CHOLESTEROL RISK CATEGORY* GOAL VERY HIGH (E.G. DIABETES + CVD) <70 MG/DL HIGH (DIABETICS; CHD RISK EQUIVALENTS) <100 MG/DL MODERATELY HIGH (MULTIPLE(2+) RISK FACTORS) <130 MG/DL 0 TO 1 RISK FACTORS <160 MG/DL * NCEP REPORT. CIRCULATION 2004; 110: 227-239 117 Target for non-HDL cholesterol is 30 mg/dL higher than LDL cholesterol target. 118 According to ADA guidelines, hemoglobin A1c <7.0% represents optimal control in non- diabetic patients. Different metrics may apply to specific patient populations. Standards of Medical Care in Diabetes-2013. Diabetes Care. 2013;36:s11-s66 For the purpose of screening for the presence of diabetes: A1C VALUE INTERPRETATION <5.7% Consistent with the absence of diabetes 5.7 - 6.4% Consistent with increased risk for diabetes (prediabetes) > or=6.5% Consistent with diabetes Currently, no consensus exists regarding use of hemoglobin A1C for diagnosis of diabetes in children. 119 REFERENCE RANGES BELOW ARE APPLICABLE TO FEMALES FIRST TRIMESTER - 0.26 - 2.66 mIU/L SECOND TRIMESTER - 0.55 - 2.73 mIU/L THIRD TRIMESTER - 0.43 - 2.91 mIU/L Procedures Date Code Description Status 02/19/2019 34159 EKG-Tracing & Report Completed 09/20/2018 23810 EKG-Tracing & Report Completed 02/01/2018 05998 Non-Invcorrotid/Comp /Bilat Study Completed 06/13/2017 46752 EKG-Tracing & Report Completed 03/02/2017 76324 Echocardiography Completed 01/14/2016 [id number] Bone Mineral Density Test Completed 02/05/2015 55000 EKG-Tracing & Report Completed 02/04/2015 69947 Holter Monitor Office Completed 02/03/2015 88979 Echocardiography Completed 01/02/2014 72360 Echocardiography Completed 12/31/2013 35085 Holter Monitor Office Completed Encounters Type Date Location Provider Dx Diagnosis Office Visit 02/27/2019 4:00p Main Office Roel Zavala MD M25.561 Pain in right knee E03.9 Hypothyroidism, unspecified D64.9 Anemia, unspecified N19 Unspecified kidney failure E11.65 Type 2 diabetes mellitus with hyperglycemia Office Visit 02/14/2019 4:15p Main Office Roel Zavala MD E66.9 Obesity, unspecified J01.90 Acute sinusitis, unspecified Office Visit 12/31/2018 8:30a Main Office Roel Zavala MD J20.9 Acute bronchitis, unspecified E66.9 Obesity, unspecified E78.5 Hyperlipidemia, unspecified I11.9 Hypertensive heart disease without heart failure N19 Unspecified kidney failure D64.9 Anemia, unspecified E03.9 Hypothyroidism, unspecified M25.561 Pain in right knee Office Visit 12/13/2018 3:30p Main Office Savannah Biswas0.9 Acute bronchitis, MChandlerD. unspecified Office Visit 09/24/2018 12:45p Main Office Roel Zavala MD E66.9 Obesity, unspecified E78.5 Hyperlipidemia, unspecified I11.9 Hypertensive heart disease without heart failure N19 Unspecified kidney failure D64.9 Anemia, unspecified E03.9 Hypothyroidism, unspecified M25.561 Pain in right knee Z00.00 Encntr for general adult medical exam w/o abnormal findings Office Visit 05/09/2018 1:30p Main Office Roel Zavala MD E11.21 Type 2 diabetes mellitus with diabetic nephropathy E66.9 Obesity, unspecified I11.9 Hypertensive heart disease without heart failure N19 Unspecified kidney failure D64.9 Anemia, unspecified E03.9 Hypothyroidism, unspecified M25.561 Pain in right knee G47.30 Sleep apnea, unspecified Z23 Encounter for immunization Office Visit 02/01/2018 2:15p Main Office Roel Zavala MD E66.9 Obesity, unspecified E11.21 Type 2 diabetes mellitus with diabetic nephropathy N19 Unspecified kidney failure I11.9 Hypertensive heart disease without heart failure R09.02 Hypoxemia D64.9 Anemia, unspecified E03.9 Hypothyroidism, unspecified Office Visit 01/03/2018 1:15p Main Office Roel Zavala MD R09.02 Hypoxemia I11.9 Hypertensive heart disease without heart failure N19 Unspecified kidney failure E66.9 Obesity, unspecified E11.21 Type 2 diabetes mellitus with diabetic nephropathy M25.561 Pain in right knee Office Visit 12/27/2017 11:00a Main Office Malia Hammonds, I11.9 Hypertensive heart M.D. disease without heart failure J20.9 Acute bronchitis, unspecified Office Visit 12/21/2017 8:15a Main Office Roel Zavala MD J20.9 Acute bronchitis, unspecified R09.02 Hypoxemia D64.9 Anemia, unspecified J01.90 Acute sinusitis, unspecified G47.30 Sleep apnea, unspecified I11.9 Hypertensive heart disease without heart failure N19 Unspecified kidney failure Office Visit 12/04/2017 11:00a Main Office Roel Zavala MD J20.9 Acute bronchitis, unspecified J01.90 Acute sinusitis, unspecified E66.9 Obesity, unspecified Office Visit 10/11/2017 1:00p Main Office Roel Zavala MD E66.9 Obesity, unspecified G47.30 Sleep apnea, unspecified M25.561 Pain in right knee D64.9 Anemia, unspecified E11.21 Type 2 diabetes mellitus with diabetic nephropathy I11.9 Hypertensive heart disease without heart failure N19 Unspecified kidney failure I65.23 Occlusion and stenosis of bilateral carotid arteries I34.0 Nonrheumatic mitral (valve) insufficiency E78.5 Hyperlipidemia, unspecified Office Visit 06/20/2017 1:00p Main Office Roel Zavala MD E11.21 Type 2 diabetes mellitus with diabetic nephropathy I11.9 Hypertensive heart disease without heart failure E66.9 Obesity, unspecified G47.30 Sleep apnea, unspecified M25.561 Pain in right knee Z00.00 Encntr for general adult medical exam w/o abnormal findings D64.9 Anemia, unspecified N19 Unspecified kidney failure Z23 Encounter for immunization Office Visit 03/13/2017 2:30p Main Office Roel Zavala MD E11.21 Type 2 diabetes mellitus with diabetic nephropathy I11.9 Hypertensive heart disease without heart failure E66.9 Obesity, unspecified G47.30 Sleep apnea, unspecified M25.561 Pain in right knee I65.23 Occlusion and stenosis of bilateral carotid arteries Z23 Encounter for immunization Office Visit 02/13/2017 1:15p Main Office Roel Zavala MD R10.11 Right upper quadrant pain K59.00 Constipation, unspecified Office Visit 11/24/2016 2:00p Main Office Roel Zavala MD E11.21 Type 2 diabetes mellitus with diabetic nephropathy I11.9 Hypertensive heart disease without heart failure E66.9 Obesity, unspecified G47.30 Sleep apnea, unspecified M25.561 Pain in right knee M18.51 Oth unil sec osteoarth of first carpometacarp joint, r hand E03.9 Hypothyroidism, unspecified N19 Unspecified kidney failure I65.23 Occlusion and stenosis of bilateral carotid arteries M13.842 Other specified arthritis, left hand Office Visit 05/24/2016 11:00a Main Office Roel Zavala MD E11.21 Type 2 diabetes mellitus with diabetic nephropathy I11.9 Hypertensive heart disease without heart failure E66.9 Obesity, unspecified E78.5 Hyperlipidemia, unspecified M25.561 Pain in right knee G47.30 Sleep apnea, unspecified Z00.01 Encounter for general adult medical exam w abnormal findings Z23 Encounter for immunization E11.40 Type 2 diabetes mellitus with diabetic neuropathy, unsp Office Visit 02/02/2016 3:00p Main Office Roel Zavala MD E11.21 Type 2 diabetes mellitus with diabetic nephropathy I11.9 Hypertensive heart disease without heart failure E66.9 Obesity, unspecified E78.5 Hyperlipidemia, unspecified J20.9 Acute bronchitis, unspecified I51.7 Cardiomegaly Office Visit 10/28/2015 1:15p Main Office Roel Zavala MD M50.00 Cervical disc disorder with myelopathy, unsp cervical region M25.561 Pain in right knee E11.21 Type 2 diabetes mellitus with diabetic nephropathy Office Visit 09/28/2015 1:00p Main Office Roel Zavala MD I11.9 Hypertensive heart disease without heart failure E11.21 Type 2 diabetes mellitus with diabetic nephropathy E66.9 Obesity, unspecified G47.30 Sleep apnea, unspecified E78.5 Hyperlipidemia, unspecified M50.00 Cervical disc disorder with myelopathy, unsp cervical region Office Visit 08/04/2015 11:30a Main Office Roel Zavala MD J15.8 Pneumonia due to other specified bacteria I11.9 Hypertensive heart disease without heart failure Office Visit 06/25/2015 1:30p Main Office Roel Zavala MD E11.21 Type 2 diabetes mellitus with diabetic nephropathy I11.9 Hypertensive heart disease without heart failure I50.32 Chronic diastolic (congestive) heart failure E66.9 Obesity, unspecified G47.30 Sleep apnea, unspecified E78.5 Hyperlipidemia, unspecified Z23 Encounter for immunization Office Visit 05/06/2015 11:15a Main Office Malia Hammonds M.D. 682.90 Cellulitis Office Visit 04/28/2015 2:30p Main Office Roel Zavala MD 682.90 Cellulitis 402.10 Hypertensive Heart Disease Benign W/O Heart Failure GENERAL General Office Visit 04/21/2015 7:30p Main Office Roel Zavala MD 682.90 Cellulitis 402.10 Hypertensive Heart Disease Benign W/O Heart Failure 250.40 Diabetes W/ Renal Manifestations Type II Controlled GENERAL General Office Visit 02/20/2015 1:30p Main Office Roel Zavala MD 272.4 Hyperlipidemia Other Unspec 424.0 Mitral Valve Disorder 428.32 Diastolic Heart Failure Chronic 250.40 Diabetes W/ Renal Manifestations Type II Controlled 402.10 Hypertensive Heart Disease Benign W/O Heart Failure V72.2 Examination Dental V03.82 Streptococcus Pneumoniae Vaccination Spec Other V72.0 Examination Eyes & Vision V70.0 Examination General Medical Routine AT [facility] Care Facility 278.00 Obesity Unspec 307.46 Sleep Arousal Disorder 719.46 Pain Joint Lower Leg 719.44 Pain Joint Hand GENERAL General Office Visit 01/20/2015 11:00a Main Office Roel Zavala MD 586 Renal Failure Unspec 250.40 Diabetes W/ Renal Manifestations Type II Controlled 402.10 Hypertensive Heart Disease Benign W/O Heart Failure 424.0 Mitral Valve Disorder 428.32 Diastolic Heart Failure Chronic GENERAL General Office Visit 05/13/2014 9:15a Main Office Roel Zavala MD 366.9 Cataract Unspec 440.1 Atherosclerosis Renal Artery 586 Renal Failure Unspec 250.40 Diabetes W/ Renal Manifestations Type II Controlled 402.10 Hypertensive Heart Disease Benign W/O Heart Failure GENERAL General Office Visit 02/04/2014 9:15a Main Office Roel Zavala MD 440.1 Atherosclerosis Renal Artery 586 Renal Failure Unspec GENERAL General Office Visit 01/21/2014 4:00p Main Office Roel Zavala MD 424.0 Mitral Valve Disorder 428.32 Diastolic Heart Failure Chronic 250.70 Diabetes W/ Peripheral Circulatory Disorders Type II Control 250.40 Diabetes W/ Renal Manifestations Type II Controlled 715.09 Osteoarthrosis Generalized Multiple Sites 586 Renal Failure Unspec 402.10 Hypertensive Heart Disease Benign W/O Heart Failure V72.2 Examination Dental V72.0 Examination Eyes & Vision V70.0 Examination General Medical Routine AT Health Care Facility GENERAL General Office Visit 12/11/2013 3:00p Main Office Roel Zavala MD 433.10 Occlusion & Stenosis Carotid Artery W/O Cerebral Infarction 715.09 Osteoarthrosis Generalized Multiple Sites 459.81 Venous Insufficiency (Peripheral) Unspec 402.10 Hypertensive Heart Disease Benign W/O Heart Failure 250.70 Diabetes W/ Peripheral Circulatory Disorders Type II Control 586 Renal Failure Unspec 250.40 Diabetes W/ Renal Manifestations Type II Controlled GENERAL General Plan of Treatment Future Appointment(s):05/24/2019 8:00 am - Nurse at Main Bklgzy3706/04/2019 12: 15 pm - Roel Zavala MD at Main Vdejep1202/27/2019 - Roel Zavala, MDM25.561 Pain in right kneeComments:PLANNING FOR RIGHT TKR IN [address] MONTEZ. THE PATIENT IS MEDICALLY OPTIMIZED FOR THE SURGICAL PROCEDURE. SHE IS AT INCREASEDBUT ACCEPTABLE RISK FOR THE PROPOSED SURGERY.WHEN IN HOSPITAL, HOLD METFORMIN, USE FS WITH HUMULOG COVERAGESHE DOES SEE DR. WILLIS, CARDIOLOGY, WHO MANAGES HER FROM ACARDIAC PERSPECTIVE, CARDIAC CLEARANCE CAN BE OBTAINED PER THAT BMRANNS23.9 Hypothyroidism, unspecifiedComments:CONTINUE SYNTHROIDLABS MAY/JUND64.9 Anemia, unspecifiedComments:CHRONICGI [place] WITH DR. SANCHEZ PREVIOUSLY [id number] Unspecified kidney failureComments:CREAT STABLECONTINUE TO MONITOR BMPE11.65 Type 2 diabetes mellitus with hyperglycemiaComments:HAIC PENDINGCONTINUE METFORMINDIABETIC TEACHING ADN EDUCATION REVIEWEDAllComments: UARTO MAY/JUNCBC,CMP,LIPIDS,HAIC TSH,FT4 BEFORE THAT VISITCC: DR. MONTEZ
--- OUTSIDE RECORDS SUMMARY | 2019-03-21 06:58 | XMS REPORT | Continuity of Care Document ---
:1940 External Reference #:[id number] Author Name Neelam Cade Care Team Providers Name Role Phone Roel Zavala MD Primary Care Physician Unavailable Payers Date Identification Numbers Payment Provider Subscriber Policy Number: [id number] Medicare Maisha Mendoza PayID: [id number] [address] [place] [address] Policy Number: [id number] Lifetime Benefit Solution Maisha Mendoza PayID: [id number] [address] [place] [address] Problems Active Problems Provider Date Type 2 [...] Calcium tab 1 by mouth 90tabs Roel Zavaal MD 12/21/2017 40mg every day Tablets [place] Nasal [place] spray twice 66ml Roel Zavala MD 12/04/2017 0.65% daily to each Solution nare Aspirin 1 by mouth every Roel Zavala MD 10/11/2017 81mg Tablets day Metformin HCL ER 1 by mouth by 90tarayna Zavala MD 10/11/2017 750mg mouth every Tablets ER 24HR evening Zostavax one injection 1units Roel Zavala MD 06/20/2017 61660Veq/0.65ML Suspension Rec Onetouch Ultra Blue as directed [...] Levaquin 1 by mouth every 10tabs J20.9 Malia Hammonds, 12/13/2018 - 500mg Tablets day M.D. [...] - 25mg Tablets mouth once daily 12/21/2017 [place] Nasal [place] spray twice 66ml Roel Zavala MD 02/02/2016 - 0.65% Solution daily to each 01/03/2018 nare Zithromax 1 by mouth every 5tabs Roel Zavala MD 02/02/2016 - 500mg Tablets day for five 11/24/2016 days Proair HFA 2 puffs 4 x 8.500gm Roel Zavala MD 08/04/2015 - 108(90Base) mcg/Act daily 06/20/2017 Aerosol Zostavax injection as 1units Roel Zavala MD 06/25/2015 - 33144Jct/0.65ML Solution ordered 11/25/2015 Rec Bactroban apply three [...] + D 1po daily 60tabs Unknown - [id number] 06/20/2017 Tablets Hydralazine HCL Tab 1 PO [...] Virus (Afluria) Split Virus 3 Years Of [id number] Age And Older Q2035 Given 06/13/2017 Influenza Virus (Afluria) Split Virus 3 Years Of [id number] Age And Older 52239 Given 03/13/2017 Pneumococcal Conjugate Vaccine 13 Valent For [id number] Intramuscular Use Q2037 Given 05/24/2016 Influenza Vaccine (Fluvirin) 3 Years Of Age Or [id number] Older Q2035 Given 06/25/2015 Influenza Virus (Afluria) Split Virus 3 Years Of [id number] Age And Older 25363 Given 02/20/2015 Pneumovax Polyvalent Inj Im [id number] Q2037 Given 07/14/2014 Influenza Vaccine (Fluvirin) 3 Years Of Age Or [id number] Older 29775 Given 09/04/2012 Tetanus,Diphtheria,Adut/Adol Pertussis 76349 Given 09/04/2004 Pneumovax Polyvalent Inj Im Vital [...] Lab Cholesterol 140 mg/dL <[address] [place] [address] [phone] HDL Cholesterol 50 mg/dL Low >50 Cholesterol/HDL Ratio 2.8 CALC <5.0 LDL Chol,Calculated 70 mg/dL 0-100 2 Triglycerides 118 mg/dL <150 Non-HDL Cholesterol 91 mg/dL <130 3 CBC W/ Diff & PLT 01/09/2019 [facility] WBC 5.4 thous/L 3.8-10.8 [address] [facility] [place] [address] [phone] RBC 3.19 mill/L Low 3.80-5.10 Hemoglobin 10.7 g/dL Low 11.7-15.5 Hematocrit 31.9 % Low 35.0-45.0 MCV 100.1 FL High 80.0-100.0 MCH 33.5 pg High 27.0-33.0 MCHC 33.5 g/dL 32.0-36.0 RDW 13.6 % 11.0-15.0 Platelet Count 306 thous/L 140-400 MPV 8.5 FL 7.5-12.5 Neutrophils,Absolute 3510 cells/L [phone] Bands,Absolute PENDING Metamyelocytes,Absolute PENDING Myelocytes,Absolute PENDING Promyelocytes,Absolute [...] [facility] Sodium 141 mmol/L 135-[address] [place] [address] [phone] Potassium 4.4 mmol/L 3.5-5.3 Chloride 108 mmol/L [...] 1.9-3.7 A/G Ratio 1.8 1.0-2.5 Egfr Non-Afr. Nam[place]ian 43 ML/MIN/1.73M2 Low > Or=60 Egfr 50 ML/MIN/1.73M2 Low > Or=60 TSH & T4,Free 01/09/2019 [facility] TSH 3.26 mIU/L 0.40-4.[address] [place] [address] [phone] T4,Free 1.1 ng/dL 0.8-1.8 Laboratory test 09/13/2018 [facility] Vitamin 870 pg/mL 200-[address] B12,[place] [address] [phone] Iron And Total 09/13/2018 [facility] Iron,Total 90 g/dL 45-160 Iron Binding [address] [place] [address] [phone] Tibc 323 g/dL 250-450 % Saturation 28 % 11-50 Ferritin 54 NG/ML 20-288 Laboratory test 09/13/2018 [facility] Creatine 41 U/L 29-[address] Kinase,[place] [address] [phone] Hemoglobin A1c 5.7 % High 0-5.6 9 Lipid Panel 09/13/2018 [facility] Cholesterol 143 mg/dL <[address] [place] [address] [phone] HDL Cholesterol 54 mg/dL >50 Cholesterol/HDL Ratio 2.6 CALC <5.0 LDL Chol,Calculated 70 mg/dL 0-100 10 Triglycerides 104 mg/dL <150 Non-HDL Cholesterol 89 mg/dL <130 11 CMP W/GFR 09/13/2018 [facility] Sodium 140 mmol/L 135-[address] [place] [address] [phone] Potassium 4.3 mmol/L 3.5-5.3 Chloride 106 mmol/L [...] 1.9-3.7 A/G Ratio 1.7 1.0-2.5 Egfr Non-Afr. [place] 39 ML/MIN/1.73M2 Low > Or=60 Egfr 45 ML/MIN/1.73M2 Low > Or=60 CBC W/ Diff & PLT 09/13/2018 [facility] WBC 6.1 thous/L 3.8-10.[address] [place] [address] [phone] RBC 3.34 mill/L Low 3.80-5.10 Hemoglobin 11.5 g/dL Low 11.7-15.5 Hematocrit 32.5 % Low 35.0-45.0 MCV 97.3 FL 80.0-100.0 MCH 34.3 pg High 27.0-33.0 MCHC 35.3 g/dL 32.0-36.0 RDW 13.6 % 11.0-15.0 Platelet Count 331 thous/L 140-400 MPV 7.7 FL 7.5-12.5 Neutrophils,Absolute 4040 cells/L 3751-2070 Bands,Absolute PENDING Metamyelocytes,Absolute PENDING Myelocytes,Absolute PENDING Promyelocytes,Absolute [...] TSH 4.12 mIU/L 0.40-4.[address] [facility] [address] [place] [address] [phone] T4,Free 1.1 ng/dL 0.8-1.8 TSH & T4,Free 04/27/2018 [facility] TSH 3.84 mIU/L 0.40-4.[address] [place] [address] [phone] T4,Free 1.1 ng/dL 0.8-1.8 Laboratory test 04/27/2018 [facility] Creatine 31 U/L 29-[address] Kinase,[place] [address] [phone] Hepatic Function 04/27/2018 [facility] Alkaline 90 U/L 33-[address] [place] [address] [phone] Ast 15 U/L 10-35 Alt 16 U/L 6-29 Bilirubin,Total 0.6 mg/dL 0.2-1.2 Bilirubin,Direct 0.1 mg/dL < Or=0.2 Protein,Total 6.5 g/dL 6.1-8.1 Albumin 4.1 g/dL 3.6-5.1 Globulin,Calculated 2.4 g/dL 1.9-3.7 A/G Ratio 1.7 1.0-2.5 Lipid Panel 04/27/2018 [facility] Cholesterol 146 mg/dL <[address] [place] [address] [phone] HDL Cholesterol 57 mg/dL >50 Cholesterol/HDL Ratio 2.6 CALC <5.0 LDL Chol,Calculated 70 mg/dL 0-100 18 Triglycerides 106 mg/dL <150 Non-HDL Cholesterol 90 mg/dL <130 19 CBC W/ Diff & PLT 04/27/2018 [facility] WBC 6.4 thous/L 3.8-10.[address] [place] [id number] [phone] RBC 3.19 mill/L Low 3.80-5.10 Hemoglobin 10.8 g/dL Low 11.7-15.5 Hematocrit 32.0 % Low 35.0-45.0 MCV 100.2 FL High 80.0-100.0 MCH 33.9 pg High 27.0-33.0 MCHC 33.9 g/dL 32.0-36.0 RDW 14.2 % 11.0-15.0 Platelet Count 339 thous/L 140-400 MPV 7.6 FL 7.5-12.5 Neutrophils,Absolute 4460 cells/L [phone] Bands,Absolute PENDING Metamyelocytes,Absolute PENDING Myelocytes,Absolute PENDING Promyelocytes,Absolute [...] [facility] Sodium 143 mmol/L 135-[address] [place], [place] [address] [phone] Potassium 4.4 mmol/L 3.5-5.3 Chloride 106 mmol/L 98-110 Carbon Dioxide 31 mmol/L 20-31 Calcium 9.5 mg/dL 8.6-10.4 Glucose 106 mg/dL High 65-99 21 Urea Nitrogen (BUN) 27 mg/dL High 7-25 Creatinine 1.28 mg/dL High 0.60-0.93 22 BUN/Creatinine Ratio 21.0 6-22 Egfr Non-Afr. [place] 40 ML/MIN/1.73M2 Low > Or=60 Egfr 46 ML/MIN/1.73M2 Low > Or=60 Comp Metabolic Panel 04/27/2018 [facility] Sodium 143 mmol/L 135-146 [address] [place], [place] [id number] [phone] Potassium 4.4 mmol/L 3.5-5.3 Chloride 106 mmol/L [...] 1.9-3.7 A/G Ratio 1.7 1.0-2.5 Egfr Non-Afr. [place] 40 ML/MIN/1.73M2 Low > Or=60 Egfr 46 ML/MIN/1.73M2 Low > Or=60 Laboratory test 04/27/2018 [facility] Hemoglobin A1c 5.6 % 0-5.6 [address] [place] [address] [phone] Basic Metabolic 01/19/2018 [facility] Sodium 140 mmol/L 135-[address] [place] [address] [phone] Potassium 4.1 mmol/L 3.5-5.3 Chloride 105 mmol/L 98-110 Carbon Dioxide 28 mmol/L 20-31 Calcium 9.8 mg/dL 8.6-10.4 Glucose 115 mg/dL High 65-99 26 Urea Nitrogen (BUN) 39 mg/dL High 7-25 Creatinine 1.37 mg/dL High 0.60-0.93 27 BUN/Creatinine Ratio 28.8 High 6-22 Egfr Non-Afr. [place] 37 ML/MIN/1.73M2 Low > Or=60 Egfr 42 ML/MIN/1.73M2 Low > Or=60 Basic Metab W/O CA 12/27/2017 [facility] Sodium 139 mmol/L 135-[address] [place] [address] [phone] Potassium 4.5 mmol/L 3.5-5.3 Chloride 103 mmol/L 98-110 Carbon Dioxide 28 mmol/L 20-31 Glucose 96 mg/dL 65-99 28 Urea Nitrogen (BUN) 39 mg/dL High 7-25 Creatinine 1.51 mg/dL High 0.60-0.93 29 BUN/Creatinine Ratio 25.8 High 6-22 Basic Metabolic 12/11/2017 [facility] Glucose 113 mg/ dL High 74-106 [address] [place], [place] [address] [phone] BUN 49 mg/dL High 7-18 Creatinine 1.6 mg/dL High 0.6-1.3 Glom Filtration Rate, Estimate 33 mL/min >60 If 40 mL/min >60 31 BUN/Creat 30.6 ratio Sodium 141 mmol/L N 136-145 Potassium 4.0 mmol/L N 3.5-5.1 Chloride 105 mmol/L N 98-107 Carbon Dioxide 31 mmol/L N 21-32 Anion Gap 5 mEq/L Low 8-16 Calcium 9.2 mg/dL N 8.5-10.1 CBC 12/08/2017 [facility] White Blood Count 5.6 K/uL N 3.1-10.[address] [place] [address] [phone] Red Blood Count 3.11 M/uL Low 3.90-5.40 [...] fL N 8.9-12.4 Basic Metabolic Panel 12/08/2017 [facility] Glucose 99 mg/dL N 74-[address] [place] [address] [phone] BUN 33 mg/dL High 7-18 Creatinine 1.5 mg/dL High 0.6-1.3 Glom Filtration Rate, Estimate 36 mL/min >60 If 43 mL/min >60 33 BUN/Creat 22.0 ratio Sodium 142 mmol/L N 136-145 Potassium 3.7 mmol/L N 3.5-5.1 Chloride 104 mmol/L N 98-107 Carbon Dioxide 32 mmol/L N 21-32 Anion Gap 6 mEq/L Low 8-16 Calcium 8.9 mg/dL N 8.5-10.1 Laboratory test 12/08/2017 [facility] Magnesium 2.0 mg/dL N 1.8-2.[address] [place] [address] [phone] Laboratory test 12/07/2017 [facility] C-Reactive 36.2 mg/L High <3.[address] Protein,[place] [address] [phone] Basic Metabolic 12/07/2017 [facility] Glucose 123 mg/ dL High 74-[address] [place] [address] [phone] BUN 29 mg/dL High 7-18 Creatinine 1.6 mg/dL High 0.6-1.3 Glom Filtration Rate, Estimate 33 mL/min >60 If 40 mL/min >60 34 BUN/Creat 18.1 ratio Sodium 141 mmol/L N 136-145 Potassium 3.6 mmol/L N 3.5-5.1 Chloride 106 mmol/L N 98-107 Carbon Dioxide 30 mmol/L N 21-32 Anion Gap 5 mEq/L Low 8-16 Calcium 8.5 mg/dL N 8.5-10.1 CBC 12/07/2017 [facility] White Blood Count 5.2 K/uL N 3.1-10.[address] [place] [address] [phone] Red Blood Count 2.94 M/uL Low 3.90-5.40 [...] 9.2 fL N 8.9-12.4 Continuous Oximetry 12/07/2017 [facility] Oximetry 91 % Low 93-[address] [place], [place] [address] [phone] Fio2 21 N 21-100 Heart Rate 68 BPM Patient Status RESTING Patient Position SITTING UP IN BE <SEE NOTE> 35 Continuous Oximetry 12/07/2017 [facility] Oximetry 82 % Low 93-[address] [place] [address] [phone] Fio2 21 N 21-100 Heart Rate 86 BPM Patient Status AMBULATING Continuous Oximetry 12/07/2017 [facility] Oximetry 95 % N 93-[address] [place] [address] [phone] O2l/Min 2 L/min Oximetry Delivery N/C Heart Rate 91 BPM Patient Status AMBULATING Laboratory test 12/06/2017 [facility] Legionella Negative Negative [address] [place] [address] [phone] Glycohemoglobin 12/06/2017 [facility] Glycohemoglobin 5.6 % N 4.2-6.[address] (A1c) [place] [address] [phone] eAG 114 mg/dL LDL Cholesterol 12/06/2017 [facility] Cholesterol 115 mg/dL <200 [address] [place] [address] [phone] Triglycerides 65 mg/dL <150 39 HDL Cholesterol 60 mg/dL >40 40 LDL-Cholesterol 42 mg/dL < 100 41 Comprehensive 12/06/2017 [facility] Glucose 103 mg/ dL N 74-106 Metabolic Panel [address] [place] [address] [phone] BUN 28 mg/dL High 7-18 Creatinine 1.6 [...] U/L N 45-117 Vitamin B12 And 12/06/2017 [facility] Vitamin B12 578 pg/mL N 193-[address] [place] [address] [phone] Folic Acid > 20.0 ng/mL High 3.1-17.5 Iron-Tibc-%Sat 12/06/2017 [facility] Serum Iron 26 g/dL Low 50-[address] [place] [address] [phone] Total Iron Binding Capacity 268 g/dL N 250-450 Transferrin %Saturation 10 % Low 12-57 Aot Request 12/06/2017 [facility] Aot Request Test(s ) added [address] [place] [address] [phone] Tests to be added: BNP CBS W/Automated 12/06/2017 [facility] White Blood 5.9 K/uL N 3.1-10.[address] [place] [address] [phone] Red Blood Count 2.77 M/uL Low 3.90-5.40 [...] 40.4-72.8 Lymph % 14.6 % Low 20.0-42.0 Brown % 19.8 % High 4.3-13.2 Eo% 4.1 % N 0.0-6.6 Bas% 0.2 % N 0.0-1.1 Neut# 3.62 K/uL N 1.8-7.0 Lymph # 0.86 K/uL Low 1.0-4.0 Brown # 1.17 K/uL High 0.3-0.9 Eos # 0.24 K/uL N 0.0-0.5 Baso # 0.01 K/uL N 0.0-0.1 Laboratory test 12/06/2017 [facility] C-Reactive 52.1 mg/L High <3.[address] Protein,[place] [address] [phone] NT-proBNP 1489.0 pg/mL High <450 Legionella 12/05/2017 [facility] Legionella (SEE NOTE ) [address] [place] [address] [phone] Aot Request 12/05/2017 [facility] Aot Request Test(s ) [address] [place] [address] [phone] Tests to be added: TSH Aot Request 12/05/2017 [facility] Aot Request Test(s ) added [address] [place] [id number] [phone] Tests to be added: Mg, Phos, CRP Blood Culture 12/05/2017 [facility] Blood Culture NO GROWTH: [address] Aerobic FINAL <[place] [address] NOTE> [phone] Blood Culture Anaerobic NO GROWTH: FINAL <SEE NOTE> 48 Laboratory test finding 12/05/2017 [facility] CK 86 U /L N 26-[address] [place] [address] [phone] Troponin-I < 0.015 ng/mL 50 Phosphorous 3.0 mg/dL N 2.5-4.0 Magnesium 1.7 mg/dL Low 1.8-2.4 Thyroid Stim Hormone 1.17 uIU/mL N 0.30-4.20 C-Reactive Protein,Quant 47.2 mg/L High <3.0 Comprehensive 12/05/2017 [facility] Glucose 109 mg/ dL High 74-106 Metabolic Panel [address] [place] [address] [phone] BUN 26 mg/dL High 7-18 Creatinine 1.4 [...] 67 U/L N 45-117 Lactic Acid 12/05/2017 [facility] Lactic Acid 1.1 mmol/L N 0.4-1.[address] [place] [address] [phone] Lab Reflex >2.0 for Sepsis? Y CBS W/Automated 12/05/2017 [facility] White Blood 8.1 K/uL N 3.1-10.[address] [place] [address] [phone] Red Blood Count 3.32 M/uL Low 3.90-5.40 [...] 40.4-72.8 Lymph % 7.3 % Low 20.0-42.0 Brown % 12.6 % N 4.3-13.2 Eo% 1.4 % N 0.0-6.6 Bas% 0.2 % N 0.0-1.1 Neut# 6.34 K/uL N 1.8-7.0 Lymph # 0.59 K/uL Low 1.0-4.0 Brown # 1.02 K/uL High 0.3-0.9 Eos # 0.11 K/uL N 0.0-0.5 Baso # 0.02 K/uL N 0.0-0.1 Blood Culture 12/05/2017 [facility] Blood Culture NO GROWTH: 53, [address] Aerobic FINAL <[place] [address] NOTE> [phone] Blood Culture Anaerobic NO GROWTH: FINAL <SEE NOTE> 55 Laboratory test 12/05/2017 [facility] Urine Culture NO GROWTH: [address] FINAL <[place] [address] NOTE> [phone] Urinalysis With 12/05/2017 [facility] Urine Color YELLOW Yellow [address] [place], [place] [address] [phone] Urine Clarity CLEAR Clear Urine Glucose - Dipstick NEGATIVE mg/dL Negative Urine Bilirubin - Dipstick NEGATIVE Negative Urine Ketone NEGATIVE mg/dL Negative Urine Specific [place] 1.010 N 1.010-1.030 Urine Blood TRACE Negative [...] CAT <SEE NOTE> 59 Rapid Influenza 12/04/2017 [facility] Influenza A NEGATIVE Negative 60 A & B Molecular [address] Molecular [place], [place] [address] [phone] Influenza B Molecular NEGATIVE Negative Laboratory test 09/20/2017 [facility] Creatine 30 U/L 29-[address] Kinase,[place] [address] [phone] Hepatic Function 09/20/2017 [facility] Alkaline 71 U/L 33-[address] Phosphatase [place], [place] [address] [phone] Ast 13 U/L 10-35 Alt 13 U/L 6-29 Bilirubin,Total 0.5 mg/dL 0.2-1.2 Bilirubin,Direct 0.1 mg/dL < Or=0.2 Protein,Total 6.6 g/dL 6.1-8.1 Albumin 4.1 g/dL 3.6-5.1 Globulin,Calculated 2.5 g/dL 1.9-3.7 A/G Ratio 1.6 1.0-2.5 Lipid Panel 09/20/2017 [facility] Cholesterol 142 mg/dL <[address] [place] [address] [phone] HDL Cholesterol 56 mg/dL >50 Cholesterol/HDL Ratio 2.5 CALC <5.0 LDL Chol,Calculated 67 mg/dL 0-100 61 Triglycerides 102 mg/dL <150 Non-HDL Cholesterol 86 mg/dL <130 62 Laboratory test 09/20/2017 [facility] Hemoglobin A1c 5.4 % 0-5.6 [address] [place] [address] [phone] Comp Metabolic 09/20/2017 [facility] Sodium 141 mmol/L 135-[address] [place] [address] [phone] Potassium 4.9 mmol/L 3.5-5.3 Chloride 105 mmol/L [...] 1.9-3.7 A/G Ratio 1.6 1.0-2.5 Egfr Non-Afr. [place]ian 36 ML/MIN/1.73M2 Low > Or=60 Egfr 42 ML/MIN/1.73M2 Low > Or=60 Comp Metabolic Panel 06/13/2017 [facility] Sodium 140 mmol/L 135-[address] [place] [address] [phone] Potassium 4.6 mmol/L 3.5-5.3 Chloride 105 mmol/L [...] 1.9-3.7 A/G Ratio 1.8 1.0-2.5 Egfr Non-Afr. [place] 42 ML/MIN/1.73M2 Low > Or=60 Egfr 49 ML/MIN/1.73M2 Low > Or=60 Laboratory test 06/13/2017 [facility] Creatine 33 U/L 29-[address] Kinase,[place] [address] [phone] Hemoglobin A1c 5.5 % 0-5.6 69 Hepatic Function 06/13/2017 [facility] Alkaline Phosphatase 70 U/L 33- [address] [place] [address] [phone] Ast 13 U/L 10-35 Alt 13 U/L 6-29 Bilirubin,Total 0.5 mg/dL 0.2-1.2 Bilirubin,Direct 0.1 mg/dL < Or=0.2 Protein,Total 6.3 g/dL 6.1-8.1 Albumin 4.1 g/dL 3.6-5.1 Globulin,Calculated 2.2 g/dL 1.9-3.7 A/G Ratio 1.8 1.0-2.5 Lipid Panel 06/13/2017 [facility] Cholesterol 135 mg/dL <[address] [place] [address] [phone] HDL Cholesterol 46 mg/dL Low >50 Cholesterol/HDL Ratio 2.9 CALC <5.0 LDL Chol,Calculated 69 mg/dL <100 70 Triglycerides 117 mg/dL <150 Non-HDL Cholesterol 89 mg/dL <130 71 CBC W/ Diff & PLT 06/13/2017 [facility] WBC 6.1 thous/L 3.8-10.[address] [place] [address] [phone] RBC 3.18 mill/L Low 3.80-5.10 Hemoglobin 10.5 g/dL Low 11.7-15.5 Hematocrit 31.5 % Low 35.0-45.0 MCV 99.1 FL 80.0-100.0 MCH 33.0 pg 27.0-33.0 MCHC 33.3 g/dL 32.0-36.0 RDW 14.1 % 11.0-15.0 Platelet Count 316 thous/L 140-400 Platelet Sufficiency PENDING MPV 8.0 FL 7.5-12.5 Neutrophils,Absolute 3910 cells/L [phone] Bands,Absolute PENDING Metamyelocytes,Absolute PENDING Myelocytes,Absolute PENDING Promyelocytes,Absolute [...] Lab TSH 3.03 mIU/L 0.40-4.[address] [place] [address] [phone] T4,Free 1.2 ng/dL 0.8-1.8 Laboratory test 02/28/2017 [facility] Cholesterol 131 mg/dL 125-[address] [place] [address] [phone] Hepatic Function 02/28/2017 [facility] Alkaline 70 U/L 33-[address] [place] [place] [address] [phone] Ast 14 U/L 10-35 Alt 14 U/L 6-29 Bilirubin,Total 0.6 mg/dL 0.2-1.2 Bilirubin,Direct 0.1 mg/dL < Or=0.2 Protein,Total 6.5 g/dL 6.1-8.1 Albumin 4.0 g/dL 3.6-5.1 Globulin,Calculated 2.5 g/dL 1.9-3.7 A/G Ratio 1.6 1.0-2.5 Laboratory test 02/28/2017 [facility] Creatine 28 U/L Low 29-[address] Kinase,[place] [address] [phone] TSH & T4,Free 02/28/2017 [facility] TSH 2.65 0.40-4.[address] mIU/[place] [address] [phone] T4,Free 1.3 ng/dL 0.8-1.8 75 Laboratory test 02/28/2017 [facility] Hemoglobin A1c 5.6 % 0-5.6 [address] [place] [address] [phone] Basic Metabolic 02/28/2017 [facility] Sodium 139 mmol/L 135-[address] [place] [address] [phone] Potassium 4.5 mmol/L 3.5-5.3 Chloride 103 mmol/L 98-110 Carbon Dioxide 26 mmol/L 20-31 Calcium 9.5 mg/dL 8.6-10.4 Glucose 107 mg/dL High 65-99 77 Urea Nitrogen 36 mg/dL High 7-25 Creatinine 1.37 mg/dL High 0.60-0.93 78 BUN/Creatinine Ratio 26.5 High 6-22 Egfr Non-Afr. [place] 37 ML/MIN/1.73M2 Low > Or=60 Egfr 43 ML/MIN/1.73M2 Low > Or=60 Laboratory test 10/19/2016 [facility] Hemoglobin A1c 5.9 % High 0.0-5.6 [address] [place] [address] [phone] Laboratory test 10/19/2016 [facility] Cholesterol 122 Low 125-[address] mg/[place] [address] [phone] Hepatic 10/19/2016 [facility] Alkaline 63 U/L 33-130 Function Panel [address] [place] [address] [phone] Ast 17 U/L 10-35 Alt 14 U/L 6-29 Bilirubin,Total 0.6 mg/dL 0.2-1.2 Bilirubin,Direct 0.1 mg/dL < Or=0.2 Protein,Total 6.3 g/dL 6.1-8.1 Albumin 3.9 g/dL 3.6-5.1 Globulin,Calculated 2.4 g/dL 1.9-3.7 A/G Ratio 1.7 1.0-2.5 Laboratory test 10/19/2016 [facility] Creatine 112 U/L 29-[address] Kinase,[place] [address] [phone] TSH & T4,Free 10/19/2016 [facility] TSH 7.15 High 0.40-4.[address] mIU/[place] [address] [phone] T4,Free 1.0 ng/dL 0.8-1.8 Basic Metabolic Panel 10/19/2016 [facility] Sodium 140 mmol/L 135-[address] [place] [address] [phone] Potassium 4.2 mmol/L 3.5-5.3 Chloride 105 mmol/L 98-110 Carbon Dioxide 27 mmol/L 20-31 Calcium 9.9 mg/dL 8.6-10.4 Glucose 117 mg/dL High 65-99 81 Urea Nitrogen 31 mg/dL High 7-25 Creatinine 1.21 mg/dL High 0.60-0.93 82 BUN/Creatinine Ratio 25.8 High 6-22 Egfr Non-Afr. [place] 43 ML/MIN/1.73M2 Low > Or=60 Egfr 50 ML/MIN/1.73M2 Low > Or=60 General Health Panel 05/18/2016 [facility] TSH 5.73 mIU/L High 0.40-4.[address] [place] [address] [phone] T4,Free 1.0 ng/dL 0.8-1.8 CBC W/ Diff & PLT 05/18/2016 [facility] WBC 5.8 thous/L 3.8-10.[address] [place] [address] [phone] RBC 3.34 mill/L Low 3.80-5.10 Hemoglobin 10.8 g/dL Low 11.7-15.5 Hematocrit 32.1 % Low 35.0-45.0 MCV 96.2 FL 80.0-100.0 MCH 32.4 pg 27.0-33.0 MCHC 33.7 g/dL 32.0-36.0 RDW 14.1 % 11.0-15.0 Platelet Count 313 thous/L 140-400 Platelet Sufficiency PENDING MPV 8.0 FL 7.5-11.5 Neutrophils,Absolute 3540 cells/L [phone] Bands,Absolute PENDING Metamyelocytes,Absolute PENDING Myelocytes,Absolute PENDING Promyelocytes,Absolute [...] [facility] Cholesterol 127 mg/dL 125-200 [address] [place] [address] [phone] HDL Cholesterol 49 mg/dL > Or=46 Cholesterol/HDL Ratio 2.6 < Or=5.0 LDL Chol,Calculated 55 mg/dL <130 85 Triglycerides 116 mg/dL <150 Non-HDL Cholesterol 78 mg/dL 86 Hepatic Function 05/18/2016 [facility] Alkaline Phosphatase 71 U/L 33- 130 Panel [address] [place] [address] [phone] Ast 12 U/L 10-35 Alt 12 U/L 6-29 Bilirubin,Total 0.4 mg/dL 0.2-1.2 Bilirubin,Direct 0.1 mg/dL < Or=0.2 Protein,Total 6.6 g/dL 6.1-8.1 Albumin 4.0 g/dL 3.6-5.1 Globulin,Calculated 2.6 g/dL 1.9-3.7 A/G Ratio 1.6 1.0-2.5 Laboratory test 05/18/2016 [facility] Creatine 39 U/L 29-[address] [employer],[place] [address] [phone] Hemoglobin A1c 5.8 % High 0.0-5.6 87 Comp Metabolic Panel 05/18/2016 [facility] Sodium 141 mmol/L 135-[address] [place] [address] [phone] Potassium 4.3 mmol/L 3.5-5.3 Chloride 105 mmol/L [...] 1.9-3.7 A/G Ratio 1.6 1.0-2.5 Egfr Non-Afr. [place] 49 ML/MIN/1.73M2 Low > Or=60 Egfr 57 ML/MIN/1.73M2 Low > Or=60 BMP W/O Egfr 01/14/2016 [facility] Sodium 141 mmol/L 135-[address] [place] [address] [phone] Potassium 4.0 mmol/L 3.5-5.3 Chloride 102 mmol/L 98-110 Carbon Dioxide 27 mmol/L 19-30 Calcium 9.7 mg/dL 8.6-10.4 Glucose 108 mg/dL High 65-99 90 Urea Nitrogen 26 mg/dL High 7-25 Creatinine 1.13 mg/dL High 0.60-0.93 91 BUN/Creatinine Ratio 22.8 High 6-22 Laboratory test 01/14/2016 [facility] Hemoglobin A1c 6.1 % High 0.0-5.[address] [place] [address] [phone] Lipid Panel 01/14/2016 [facility] Cholesterol 154 125-[address] mg/[place] [address] [phone] HDL Cholesterol 55 mg/dL > Or=46 Cholesterol/HDL Ratio 2.8 < Or=5.0 LDL Chol,Calculated 71 mg/dL <130 93 Triglycerides 138 mg/dL <150 Non-HDL Cholesterol 99 mg/dL 94 Hepatic Function 01/14/2016 [facility] Alkaline Phosphatase 78 U/L 33- [address] [place] [id number] [phone] Ast 14 U/L 10-35 Alt 14 U/L 6-29 Bilirubin,Total 0.5 mg/dL 0.2-1.2 Bilirubin,Direct 0.1 mg/dL < Or=0.2 Protein,Total 6.5 g/dL 6.1-8.1 Albumin 4.0 g/dL 3.6-5.1 Globulin,Calculated 2.5 g/dL 1.9-3.7 A/G Ratio 1.6 1.0-2.5 Laboratory test 01/14/2016 [facility] Creatine 37 U/L 29-[address] Kinase,[place] [address] [phone] BMP W/O Egfr 09/22/2015 [facility] Sodium 141 135-[address] mmol/[place] [address] [phone] Potassium 4.2 mmol/L 3.5-5.3 Chloride 103 mmol/L 98-110 Carbon Dioxide 30 mmol/L 19-30 Calcium 9.7 mg/dL 8.6-10.4 Glucose 118 mg/dL High 65-99 95 Urea Nitrogen 27 mg/dL High 7-25 Creatinine 1.09 mg/dL High 0.60-0.93 96 BUN/Creatinine Ratio 25.0 High 6-22 Laboratory test 09/22/2015 [facility] Hemoglobin A1c 6.1 % High 0.0-5.6 [address] [place] [address] [phone] Lipid Panel 09/22/2015 [facility] Cholesterol 162 125-[address] mg/[place] [address] [phone] HDL Cholesterol 54 mg/dL > Or=46 Cholesterol/HDL Ratio 3.0 < Or=5.0 LDL Chol,Calculated 79 mg/dL <130 98 Triglycerides 147 mg/dL <150 Non-HDL Cholesterol 108 mg/dL 99 Hepatic Function 09/22/2015 [facility] Alkaline Phosphatase 81 U/L 33- [address] [place] [address] [phone] Ast 15 U/L 10-35 Alt 16 U/L 6-29 Bilirubin,Total 0.5 mg/dL 0.2-1.2 Bilirubin,Direct 0.1 mg/dL < Or=0.2 Protein,Total 6.7 g/dL 6.1-8.1 Albumin 4.2 g/dL 3.6-5.1 Globulin,Calculated 2.5 g/dL 1.9-3.7 A/G Ratio 1.6 1.0-2.5 Laboratory test 09/22/2015 [facility] Creatine 34 U/L 29-[address] Kinase,[place] [address] [phone] BMP W/O Egfr 06/12/2015 [facility] Sodium 140 135-[address] mmol/[place] [address] [phone] Potassium 4.0 mmol/L 3.5-5.3 Chloride 102 mmol/L 98-110 Carbon Dioxide 30 mmol/L 19-30 Calcium 10.0 mg/dL 8.6-10.4 Glucose 119 mg/dL High 65-99 100 Urea Nitrogen 24 mg/dL 7-25 Creatinine 0.99 mg/dL High 0.60-0.93 101 BUN/Creatinine Ratio 24.2 High 6-22 Laboratory test 06/12/2015 [facility] Hemoglobin A1c 6.1 % High 0.0-5.6 [address] [place] [address] [phone] Hepatic 06/12/2015 [facility] Alkaline 69 U/L 33-130 Function Panel [address] [place] [place] [address] [phone] Ast 14 U/L 10-35 Alt 15 U/L 6-29 Bilirubin,Total 0.6 mg/dL 0.2-1.2 Bilirubin,Direct 0.1 mg/dL < Or=0.2 Protein,Total 6.6 g/dL 6.1-8.1 Albumin 4.1 g/dL 3.6-5.1 Globulin,Calculated 2.5 g/dL 1.9-3.7 A/G Ratio 1.7 1.0-2.5 Laboratory test finding 06/12/2015 [facility] Direct LDL 69 mg/dL <130 103 6 [facility] [place] [address] [phone] Creatine Kinase,Total 32 U/L 29-143 Cholesterol 148 mg/dL 125-200 CBC W/ Diff & PLT 02/20/2015 [facility] WBC 5.5 thous/L 3.8-10.[address] [place] [address] [phone] RBC 3.57 mill/L Low 3.80-5.10 Hemoglobin 11.6 g/dL Low 11.7-15.5 Hematocrit 34.9 % Low 35.0-45.0 MCV 97.7 FL 80.0-100.0 MCH 32.6 pg 27.0-33.0 MCHC 33.4 g/dL 32.0-36.0 RDW 13.9 % 11.0-15.0 Platelet Count 310 thous/L 140-400 Platelet Sufficiency PENDING MPV 7.6 FL 7.5-11.5 Neutrophils,Absolute 3580 cells/L [phone] Bands,Absolute PENDING Metamyelocytes,Absolute PENDING Myelocytes,Absolute PENDING Promyelocytes,Absolute [...] [facility] Sodium 140 mmol/L 135-[address] [place] [address] [phone] Potassium 4.1 mmol/L 3.5-5.3 Chloride 102 mmol/L 98-110 Carbon Dioxide 30 mmol/L 19-30 Calcium 9.7 mg/dL 8.6-10.4 Glucose 117 mg/dL High 65-99 104 Urea Nitrogen 21 mg/dL 7-25 Creatinine 1.05 mg/dL High 0.60-0.93 105 BUN/Creatinine Ratio 20.0 6-22 Laboratory test 02/04/2015 [facility] Hemoglobin A1c 6.3 % High 0.0-5.6 [address] [place] [address] [phone] Hepatic 02/04/2015 [facility] Alkaline 70 U/L 33-130 Function Panel [address] [place] [place] [address] [phone] Ast 16 U/L 10-35 Alt 19 U/L 6-29 Bilirubin,Total 0.5 mg/dL 0.2-1.2 Bilirubin,Direct 0.1 mg/dL < Or=0.2 Protein,Total 6.4 g/dL 6.1-8.1 Albumin 3.9 g/dL 3.6-5.1 Globulin,Calculated 2.5 g/dL 1.9-3.7 A/G Ratio 1.6 1.0-2.5 Laboratory test 02/04/2015 [facility] Creatine 32 U/L 29-[address] Kinase,[place] [address] [phone] Direct LDL 79 mg/dL <130 107 Cholesterol 150 mg/dL 125-200 BMP W/O Egfr 05/13/2014 [facility] Sodium 140 mmol/L 135-[address] [place] [address] [phone] Potassium 4.0 mmol/L 3.5-5.3 Chloride 100 mmol/L 98-110 Carbon Dioxide 30 mmol/L 19-30 Calcium 9.6 mg/dL 8.6-10.4 Glucose 114 mg/dL High 65-99 108 Urea Nitrogen 27 mg/dL High 7-25 Creatinine 1.11 mg/dL High 0.60-0.93 109 BUN/Creatinine Ratio 24.6 High 6-22 Laboratory test 05/13/2014 [facility] Hemoglobin A1c 6.3 % High 0.0-5.6 [address] [place] [address] [phone] Hepatic 05/13/2014 [facility] Alkaline 68 U/L 33-130 Function Panel [address] [place] [place] [address] [phone] Ast 15 U/L 10-35 Alt 19 U/L 6-29 Bilirubin,Total 0.5 mg/dL 0.2-1.2 Bilirubin,Direct 0.1 mg/dL < Or=0.2 Protein,Total 6.3 g/dL 6.1-8.1 Albumin 4.0 g/dL 3.6-5.1 Globulin,Calculated 2.3 g/dL 1.9-3.7 A/G Ratio 1.8 1.0-2.5 Laboratory test 05/13/2014 [facility] Creatine 30 U/L 29-[address] Kinase,[place] [address] [phone] Cholesterol 138 mg/dL 125-200 Direct LDL 69 mg/dL <130 111 BMP W/O Egfr 05/08/2014 [facility] Sodium 141 mmol/L 135-[address] [place] [address] [phone] Potassium 4.2 mmol/L 3.5-5.3 Chloride 102 mmol/L 98-110 Carbon Dioxide 30 mmol/L 19-30 Calcium 10.2 mg/dL 8.6-10.4 Glucose 112 mg/dL High 65-99 112 Urea Nitrogen 25 mg/dL 7-25 Creatinine 1.24 mg/dL High 0.60-0.93 113 BUN/Creatinine Ratio 20.4 6-22 CBC W/ Diff & PLT 05/08/2014 [facility] WBC 6.8 thous/L 3.8-10.8 6 [place] [address] [phone] RBC 3.62 mill/L Low 3.80-5.10 Hemoglobin 12.4 g/dL 11.7-15.5 Hematocrit 36.2 % 35.0-45.0 MCV 99.9 FL 80.0-100.0 MCH 34.2 pg High 27.0-33.0 MCHC 34.3 g/dL 32.0-36.0 RDW 14.3 % 11.0-15.0 Platelet Count 354 thous/L 140-400 Platelet Sufficiency PENDING Neutrophils,Absolute 4320 cells/L [phone] Bands,Absolute PENDING Metamyelocytes,Absolute PENDING Myelocytes,Absolute PENDING Promyelocytes,Absolute [...] [facility] Sodium 144 mmol/L 135-146 [address] [facility] [place] [address] [phone] Potassium 3.9 mmol/L 3.5-5.3 Chloride 103 mmol/L [...] 1.9-3.7 A/G Ratio 1.6 1.0-2.5 Egfr Non-Afr. [place] 49 ML/MIN/1.73M2 Low > Or=60 Egfr 57 ML/MIN/1.73M2 Low > Or=60 CBC W/ Diff & PLT 01/14/2014 [facility] WBC 5.7 thous/L 3.8-10.8 [address] [place], [place] [id number] [phone] RBC 3.78 mill/L Low 3.80-5.10 Hemoglobin 12.9 g/dL 11.7-15.5 Hematocrit 37.4 % 35.0-45.0 MCV 98.9 FL 80.0-100.0 MCH 34.2 pg High 27.0-33.0 MCHC 34.5 g/dL 32.0-36.0 RDW 13.3 % 11.0-15.0 Platelet Count 312 thous/L 140-400 Platelet Sufficiency PENDING Neutrophils,Absolute 3430 cells/L [phone] Bands,Absolute PENDING Metamyelocytes,Absolute PENDING Myelocytes,Absolute PENDING Promyelocytes,Absolute [...] [facility] Cholesterol 168 mg/dL 125-[address] [place] [address] [phone] HDL Cholesterol 42 mg/dL Low > Or=46 Cholesterol/HDL Ratio 4.0 < Or=5.0 LDL Chol,Calculated 82 mg/dL <130 116 Triglycerides 218 mg/dL High <150 Non-HDL Cholesterol 126 mg/dL 117 Laboratory test 01/14/2014 [facility] Creatine 72 U/L 29-[address] Kinase,[place] [address] [phone] Hepatic Function 01/14/2014 [facility] Alkaline 68 U/L 33-[address] [place] [address] [phone] Ast 15 U/L 10-35 Alt 15 U/L 6-29 Bilirubin,Total 0.7 mg/dL 0.2-1.2 Bilirubin,Direct 0.1 mg/dL < Or=0.2 Protein,Total 6.6 g/dL 6.1-8.1 Albumin 4.0 g/dL 3.6-5.1 Globulin,Calculated 2.6 g/dL 1.9-3.7 A/G Ratio 1.6 1.0-2.5 Laboratory test 01/14/2014 [facility] Hemoglobin A1c 6.3 % High 0.0-5.6 [address] [place] [address] [phone] Laboratory test 01/14/2014 [facility] Esr,[place] 11 0-[address] MM/[place] [address] [phone] TSH & T4,Free 01/14/2014 [facility] TSH 4.39 0.40-4.[address] mIU/[place] [address] [phone] T4,Free 1.1 ng/dL 0.8-1.8 1 FASTING 2 LDL-C is now calculated using the Thomas calculation, which is a validated novel method providing better accuracy than the Friedewald equation in the estimation of LDL-C. Terry GARCES et al.JUVENTINO.2013;310(19):9110-6621 Desirable range <100 mg/dL for primary prevention; <70 mg/dL for patients with CHD or diabetic patients with >or=2 CHD risk factors. For additional information, please refer to http://education.Pixonic/faq/BGD377(This link is being provided for informational/educational purposes [...] [place], 2015. Pediatric Reference Intervals, 7th Ed, [facility] [employer], 2011. 5 Reference range for high altitude clients: 18-30 mmol/L 6 GLUCOSE REFERENCE RANGE BASED ON FASTING SPECIMEN. 7 The upper reference limit for Creatinine is approximately 13% higher for people identified as -Namibian. 8 REFERENCE RANGES BELOW ARE APPLICABLE TO [...] the estimation of LDL-C. Terry GARCES et al.JUVENTINO.2013;310(19):3371-4816 Desirable range <100 mg/dL for primary prevention; <70 mg/dL for patients with CHD or diabetic patients with >or=2 CHD risk factors. For additional information, please refer to http://education.Pixonic/faq/DCU825(This link is being provided for informational/educational purposes [...] approximately 13% higher for people identified as -Namibian. 15 Relative blood cell counts (%) should [...] the estimation of LDL-C. Terry SS et al.JUVENTINO.2013;310(19):5026-9816 Desirable range <100 mg/dL for primary prevention; <70 mg/dL for patients with CHD or diabetic patients with >or=2 CHD risk factors. For additional information, please refer to http://education.Ev[employer].OrganizedWisdom/faq/CMA218(This link is being provided for informational/educational purposes [...] Sheffield, 2015. Pediatric Reference Intervals, 7th Ed, [facility] [employer], 2011. 21 GLUCOSE REFERENCE RANGE BASED ON FASTING SPECIMEN. 22 The upper reference limit for Creatinine is approximately 13% higher for people identified as -Namibian. 23 GLUCOSE REFERENCE RANGE BASED ON FASTING SPECIMEN. 24 The upper reference limit for Creatinine is approximately 13% higher for people identified as -Namibian. 25 For the purpose of screening for the presence of diabetes: <5.7% Consistent with the absence of diabetes 5.7-6.4% Consistent with the increased risk of diabetes (prediabetes) >or=6.5% Consistent with diabetes This assay result is conistent with a decreased risk of diabetes. Currently, no consensus exists regarding use of hemoglobin A1C for diagnosis of diabetes in children. According to [place] Diabetes Association (ADA) guidelines, hemoglobin A1C <7.0% [...] approximately 13% higher for people identified as -Namibian. 28 GLUCOSE REFERENCE RANGE BASED ON FASTING SPECIMEN. 29 The upper reference limit for Creatinine is approximately 13% higher for people identified as -Namibian. 30 NO DX 31 Note: Persistent reduction [...] for more aggressive treatment of glycemia. The [place] Diabetes Association recommends that a primary goal [...] Legionella species isolated. Performed at: - [facility] [address] [id number] Crystallography Teacher: Ene Mason MD, Phone: [phone] 45 Tests: TSH Instructions: 46 Tests: Mg, [...] UROGENITAL CONTAMINATION. 59 URINE, CLEAN CATCH 60 Radio Division Captain: [id number] LDL-C is now calculated using the Terry-Lyle calculation, which is a validated novel method providing better accuracy than the Friedewald equation in the estimation of LDL-C. Terry GARCES et al.JUVENTINO.2013;310(19):2911-9605 (http://education.Evolution Nutrition.OrganizedWisdom/faq/DER447) Desirable range <100 mg/dL for patients with [...] diagnosis of diabetes in children. According to [place] Diabetes Association (ADA) guidelines, hemoglobin A1C <7.0% [...] approximately 13% higher for people identified as -Namibian. 66 FASTING 67 GLUCOSE REFERENCE RANGE BASED ON FASTING SPECIMEN. 68 The upper reference limit for Creatinine is approximately 13% higher for people identified as -Namibian. 69 For the purpose of screening for the presence of diabetes: <5.7% Consistent with the absence of diabetes 5.7-6.4% Consistent with the increased risk of diabetes (prediabetes) >or=6.5% Consistent with diabetes This assay result is conistent with a decreased risk of diabetes. Currently, no consensus exists regarding use of hemoglobin A1C for diagnosis of diabetes in children. According to [place] Diabetes Association (ADA) guidelines, hemoglobin A1C <7.0% [...] ACHIEVES LESS STRINGENT GLYCEMIC GOAL 70 The [facility] calculation is a validated novel method that provides better accuracy than the Friedewald equation in the estimation of LDL-C, particularly when TG levels are 150-400 mg/dL and LDL-C levels are lower than 70 mg/dL. Reference: Terry GARCES et al. Comparison of a Novel Method vs the Friedewald Equation for Estimating Low-Density Lipoprotein Cholesterol Levels From the Standard Lipid Profile. JUVENTINO. 2013;310(19): 2202-7759. Desirable range <100 mg/dL for patients with [...] [place], 2015. Pediatric Reference Intervals, 7th Ed, [facility] Press, 2011. 73 REFERENCE RANGES BELOW ARE [...] diagnosis of diabetes in children. According to [place] Diabetes Association (ADA) guidelines, hemoglobin A1C <7.0% [...] approximately 13% higher for people identified as -Namibian. 79 According to ADA guidelines, hemoglobin A1c [...] approximately 13% higher for people identified as -Namibian. 83 REFERENCE RANGES BELOW ARE APPLICABLE TO [...] Sheffield, 2015. Pediatric Reference Intervals, 7th Ed, [facility] Press, 2011. 85 LDL-CHOLESTEROL RISK CATEGORY* GOAL [...] approximately 13% higher for people identified as -Namibian. 90 GLUCOSE REFERENCE RANGE BASED ON FASTING SPECIMEN. 91 The upper reference limit for Creatinine is approximately 13% higher for people identified as -Namibian. 92 According to ADA guidelines, hemoglobin A1c [...] approximately 13% higher for people identified as -Namibian. 97 According to ADA guidelines, hemoglobin A1c [...] approximately 13% higher for people identified as -Namibian. 102 According to ADA guidelines, hemoglobin A1c [...] approximately 13% higher for people identified as -Namibian. 106 According to ADA guidelines, hemoglobin A1c [...] approximately 13% higher for people identified as -Namibian. 110 According to ADA guidelines, hemoglobin A1c [...] approximately 13% higher for people identified as -Namibian. 114 GLUCOSE REFERENCE RANGE BASED ON FASTING SPECIMEN. 115 The upper reference limit for Creatinine is approximately 13% higher for people identified as -Namibian. 116 LDL-CHOLESTEROL RISK CATEGORY* GOAL VERY HIGH [...] mIU/L Procedures Date Code Description Status 02/19/2019 56434 EKG-Tracing & Report Completed 09/20/2018 42544 EKG-Tracing & Report Completed 02/01/2018 97993 Non-Invcorrotid/Comp /Bilat Study Completed 06/13/2017 96263 EKG-Tracing & Report Completed 03/02/2017 63648 Echocardiography Completed 01/14/2016 [id number] Bone Mineral Density Test Completed 02/05/2015 84845 EKG-Tracing & Report Completed 02/04/2015 08858 Holter Monitor Office Completed 02/03/2015 36616 Echocardiography Completed 01/02/2014 54299 Echocardiography Completed 12/31/2013 79893 Holter Monitor Office Completed Encounters Type Date Location Provider Dx Diagnosis Office Visit 02/14/2019 4:15p Main Office Roel Zavala MD E66.9 Obesity, unspecified J01.90 Acute sinusitis, unspecified Office Visit 12/31/2018 8:30a Main Office Roel Zavala MD J20.9 Acute bronchitis, unspecified E66.9 Obesity, unspecified E78.5 Hyperlipidemia, unspecified I11.9 Hypertensive heart disease without heart failure N19 Unspecified kidney failure D64.9 Anemia, unspecified E03.9 Hypothyroidism, unspecified M25.561 Pain in right knee Office Visit 12/13/2018 3:30p Main Office Malia Hammonds, J20.9 Acute bronchitis, M.D. unspecified Office Visit 09/24/2018 12:45p Main Office [...] Controlled GENERAL General Plan of Treatment Future Appointment(s):03/26/2019 1:45 pm - Roel Zavala MD at Main [id number] 8:00 am - Nurse at Main Office
--- OUTSIDE RECORDS SUMMARY | 2019-03-21 06:59 | XMS REPORT | Continuity of Care Document ---
:1940 External Reference #:[id number] Author Name Braulio Blackburn M.D., [facility] Address [address] [place] [address] Care Team Providers Name Role Phone Rad Small M.D. Care Team Information Financial Engineer Unavailable Roel Zavala MD Primary Care Physician Unavailable Payers Date Identification Numbers Payment Provider Subscriber Policy Number: [id number] Medicare Maisha Mendoza PayID: [id number] [address] [place] [address] Policy Number: [id number] Lifetime Benefit Solution Maisha Mendoza Group Number: [id number] [address] [address] PayID: [place] ALIYA [id number] Effective: 2003 Policy Number: [id number] Medicare Maisha Mendoza Expires: 2019 PayID: [id number] [address] [place] [address] Problems Active Problems Provider Date Type 2 diabetes mellitus Onset: 02/23/2016 Benign essential hypertension Onset: 02/23/2016 Abnormal results of cardiovascular Zofia Collado ANP Onset: 03/07/2016 function studies Dyspnea Zofia Collado ANP Onset: 03/07/2016 Carotid artery occlusion Zofia Collado ANP Onset: 03/07/2016 Palpitations Zofia Collado ANP Onset: 03/07/2016 Mixed hyperlipidemia Zofia Collado ANP Onset: 03/07/2016 Cardiomegaly Alvino Broderick MD Onset: 03/07/2016 Aortic valve disorder Braulio Blackburn M.D., Onset: 02/20/2019 [facility] Hyperlipidemia Braulio Blackburn M.D., Onset: 02/20/2019 [facility] Obstructive sleep apnea syndrome Braulio Blackburn M.D., Onset: 02/20/2019 [facility] Preoperative cardiovascular Braulio Blackburn M.D., Onset: 02/20/2019 examination [facility] Anemia Adonay Weller MD Onset: 09/13/2017 Occult blood in stools Adonay Weller MD Onset: 09/13/2017 Screening for malignant neoplasm of Adonay Weller MD Onset: 02/24/2017 colon Right upper quadrant pain Adonay Weller MD Onset: 02/24/2017 Family History Date Family Member(s) Observation Comments : (age 64 Years) Father due to DE Father Hypertension Father CAD Father Myocardial Infarction Mother Gall Bladder Issues : (age 76 Years) Mother due to Congestive Heart Failure Social History Type Date Description Comments Sex Unknown Marital Status Lives With Son Home Environment Lives With SON Diet Patient follows no dietary restrictions 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 Tobacco Use Start: Unknown Never Smoked Cigarettes Smokeless Tobacco Never Used Smokeless Tobacco ETOH Use Rarely consumes alcohol Tobacco Use Start: Unknown Patient has never smoked Recreational Drug Use Denies Drug Use Smoking Status Reviewed: 07/23/18 Patient has never smoked Allergies, Adverse Reactions, Alerts Active Allergies Reaction Severity Comments Date Verapamil 02/23/2016 Hytrin 02/23/2016 Tenormin 02/23/2016 Cardizem CD 02/23/2016 Medications Active Medications SIG Qnty Indications Ordering Provider Date Symbicort inhale one puff 30.6gm J45.20 Riki Mccoy MD 07/23/2018 80-4.5mcg/Act by mouth twice Aerosol a day . rinse mouth after use Discontinue Oxygen R09.02 Riki Mccoy MD 07/23/2018 Multi Vitamin Daily 1 po qd Unknown Tablets Xopenex HFA q6h prn 30gm [place], 45mcg/Act Jazzy, CLAIM REP Aerosol Iron 1 by mouth Unknown 325(65Fe) mg Tablets every day Levothyroxine Sodium 1 by mouth Unknown 25mcg every day Tablets Aspirin 1 by mouth Unknown 81mg Tablets DR every day Metformin HCL ER 1 by mouth Unknown 750mg every day Tablets ER 24HR Bystolic 2 by mouth Unknown 20mg Tablets every day Atorvastatin Calcium 1 by mouth Unknown 40mg every day Tablets Lisinopril 1 by mouth Unknown 40mg Tablets every day Chlorthalidone 1 by mouth Unknown 50mg Tablets every day Spironolactone 1 by mouth Unknown 25mg Tablets every day Claritin 1 by mouth Unknown 10mg Capsules every day Doxazosin Mesylate Take One Tablet Unknown 2mg By Mouth Twice Tablets A Day History Medications Dulcolax 4 tablets taken a 4tabs Z12.11 Adonay Weller MD 09/13/2017 - 5mg Tablets DR 8pm the day Unknown before the procedure Golytely drink half the 4000ml Z12.11 Adonay Weller MD 09/13/2017 - 236gm Solution evening before Unknown Rec and half the morning of the procedure (1 cup every 10') Plavix 1 by mouth every 90tabs R94.30 Alvino Broderick MD 03/04/2016 - 75mg Tablets day Unknown Spironolactone 1 by mouth every 30tabs Alvino Broderick MD 02/23/2016 - 25mg day Unknown Tablets Claritin take one tablet Unknown - 10mg Tablets by mouth every Unknown day Potassium Chloride ER 1 by mouth every Unknown - day Unknown 20Meq Tablets ER Lasix 1 by mouth every Unknown - 40mg Tablets day Unknown Symbicort 1 puff twice a 12gm Riki Mccoy, - 160-4.5mcg/Act day 07/23/2018 Aerosol Calcium 600+D High 1 by mouth a day Unknown - Potency Unknown [id number] Tablets Aspirin 1 by mouth every Unknown - 325mg Tablets DR day Unknown Simvastatin 1 by mouth every Unknown - 80mg Tablets day Unknown Klor-Con 10 1 by mouth every Unknown - 10Meq Tablets day Unknown ER Doxazosin Mesylate 1 by mouth bid Unknown - 4mg Unknown Tablets Lisinopril 2 by mouth every Unknown - 40mg Tablets day Unknown Metformin HCL 1 by mouth twice Unknown - 500mg a day Unknown Tablets Chlorthalidone 1 po qd Unknown - 50mg Unknown Tablets Tekturna 1/2 tab po qd Unknown - 150mg Tablets Unknown Bystolic 2 by mouth every Unknown - 20mg Tablets day Unknown Vital Signs Date Vital Result Comment 02/20/2019 7:04am BP Systolic Sitting Left Arm 136 mmHg BP Diastolic Sitting Left Arm 62 mmHg Heart Rate 62 /min Respiratory Rate 18 /min Height 62 inches 5'2" Weight 225.00 lb BMI (Body Mass Index) 41.1 kg/m2 BSA (Body Surface Area) 2.01 m2 [place] body weight in kilograms 50 kg O2 % BldC Oximetry 95 % 07/23/2018 1:32pm BP Systolic Sitting Left Arm 130 mmHg BP Diastolic Sitting Left Arm 76 mmHg Heart Rate 56 /min Respiratory Rate 16 /min Height 62 inches 5'2" Weight 226.00 lb BMI (Body Mass Index) 41.3 kg/m2 BSA (Body Surface Area) 2.01 m2 [place] body weight in kilograms 50 kg O2 Saturation Level with Exercise 95 % 01/17/2018 1:21pm BP Systolic Sitting Left Arm 144 mmHg BP Diastolic Sitting Left Arm 80 mmHg Heart Rate 62 /min Respiratory Rate 18 /min Height 62 inches 5'2" Weight 215.00 lb BMI (Body Mass Index) 39.3 kg/m2 BSA (Body Surface Area) 1.97 m2 [place] body weight in kilograms 50 kg O2 % BldC Oximetry 97 % room air 12/12/2017 11:57am BP Systolic Sitting Right Arm 136 mmHg BP Diastolic Sitting Right Arm 74 mmHg Heart Rate 55 /min Respiratory Rate 16 /min Height 62 inches 5'2" Weight 219.00 lb BMI (Body Mass Index) 40.1 kg/m2 BSA (Body Surface Area) 1.99 m2 [place] body weight in kilograms 50 kg O2 % BldC Oximetry 96 % 2L 09/13/2017 10:27am BP Systolic Sitting Left Arm 180 mmHg BP Diastolic Sitting Left Arm 60 mmHg Heart Rate 66 /min Respiratory Rate 16 /min Height 62 inches 5'2" Weight 225.00 lb BMI (Body Mass Index) 41.1 kg/m2 BSA (Body Surface Area) 2.01 m2 [place] body weight in kilograms 50 kg 02/24/2017 2:20pm BP Systolic Sitting Left Arm 122 mmHg BP Diastolic Sitting Left Arm 62 mmHg Heart Rate 52 /min Respiratory Rate 16 /min Height 62 inches 5'2" Weight 227.00 lb BMI (Body Mass Index) 41.5 kg/m2 BSA (Body Surface Area) 2.02 m2 [place] body weight in kilograms 50 kg 05/04/2016 3:41pm BP Systolic Sitting Left Arm 166 mmHg BP Diastolic Sitting Left Arm 66 mmHg Heart Rate 50 /min Respiratory Rate 18 /min Height 62 inches 5'2" Weight 227.00 lb BMI (Body Mass Index) 41.5 kg/m2 BSA (Body Surface Area) 2.02 m2 03/04/2016 11:50am BP Systolic 138 mmHg BP Diastolic 56 mmHg Heart Rate 76 /min Height 62 inches 5'2" Weight 225.00 lb BMI (Body Mass Index) 41.1 kg/m2 BSA (Body Surface Area) 2.01 m2 02/23/2016 11:33am BP Systolic Sitting Right Arm 142 mmHg BP Diastolic Sitting Right Arm 56 mmHg Heart Rate 53 /min Respiratory Rate 16 /min Height 62 inches 5'2" Weight 226.00 lb BMI (Body Mass Index) 41.3 kg/m2 BSA (Body Surface Area) 2.01 m2 [place] body weight in kilograms 50 kg Results Test Date Facility Test Result H/L Range Note Basic Metabolic 12/11/2017 [facility] Glucose 113 mg/dL High 74-106 1 Panel [address] [place] [address] [phone] BUN 49 mg/dL High 7-18 Creatinine 1.6 mg/dL High 0.6-1.3 Glom Filtration Rate, Estimate 33 mL/min >60 If 40 mL/min >60 2 BUN/Creat 30.6 ratio Sodium 141 mmol/L N 136-145 Potassium 4.0 mmol/L N 3.5-5.1 Chloride 105 mmol/L N 98-107 Carbon Dioxide 31 mmol/L N 21-32 Anion Gap 5 mEq/L Low 8-16 Calcium 9.2 mg/dL N 8.5-10.1 CBC 12/08/2017 [facility] White Blood Count 5.6 K/uL N 3.1-10.7 3 [address] [place] [address] [phone] Red Blood Count 3.11 M/uL Low 3.90-5.40 [...] fL N 8.9-12.4 Basic Metabolic Panel 12/08/2017 [facility] Glucose 99 mg/dL N 74-106 [address] [place], [place] [id number] [phone] BUN 33 mg/dL High 7-18 Creatinine 1.5 mg/dL High 0.6-1.3 Glom Filtration Rate, Estimate 36 mL/min >60 If 43 mL/min >60 4 BUN/Creat 22.0 ratio Sodium 142 mmol/L N 136-145 Potassium 3.7 mmol/L N 3.5-5.1 Chloride 104 mmol/L N 98-107 Carbon Dioxide 32 mmol/L N 21-32 Anion Gap 6 mEq/L Low 8-16 Calcium 8.9 mg/dL N 8.5-10.1 Laboratory test finding 12/08/2017 [facility] Magnesium 2.0 mg/dL N 1.8-2.4 [address] [place], [place] [address] [phone] Continuous Oximetry 12/07/2017 [facility] Oximetry 95 % N 93-98 [address] [place] [address] [phone] O2l/Min 2 L/min Oximetry Delivery N/C Heart Rate 91 BPM Patient Status AMBULATING Laboratory test 12/07/2017 [facility] C-Reactive 36.2 mg/L High <3.0 finding [address] [facility] [place], [place] [id number] [phone] Continuous 12/07/2017 [facility] Oximetry 82 % Low 93-98 Oximetry [address] [place] [address] [phone] Fio2 21 N 21-100 Heart Rate 86 BPM Patient Status AMBULATING Continuous Oximetry 12/07/2017 [facility] Oximetry 91 % Low 93-98 [address] [place] [address] [phone] Fio2 21 N 21-100 Heart Rate 68 BPM Patient Status RESTING Patient Position SITTING UP IN BE <SEE NOTE> 5 CBC 12/07/2017 [facility] White Blood Count 5.2 K/uL N 3.1-10.7 [address] [place] [address] [phone] Red Blood Count 2.94 M/uL Low 3.90-5.40 Hemoglobin 9.7 gm/dL Low 11.6-15.8 Hematocrit 29.8 % Low 36.0-46.1 Mean Cell Volume 101.4 fl High 80.9-99.0 Mean Corpuscular HGB 33.0 pg High 25.9-32.7 Mean Corpuscular HGB Conc 32.6 g/dL N 30.8-34.3 Platelet Count 281 K/uL N 155-360 Red Cell Distri Width %CV 13.5 % N 11.7-14.4 Mean Platelet Volume 9.2 fL N 8.9-12.4 Basic Metabolic Panel 12/07/2017 [facility] Glucose 123 mg/dL High 74-106 [address] [place], [place] [id number] [phone] BUN 29 mg/dL High 7-18 Creatinine 1.6 mg/dL High 0.6-1.3 Glom Filtration Rate, Estimate 33 mL/min >60 If 40 mL/min >60 6 BUN/Creat 18.1 ratio Sodium 141 mmol/L N 136-145 Potassium 3.6 mmol/L N 3.5-5.1 Chloride 106 mmol/L N 98-107 Carbon Dioxide 30 mmol/L N 21-32 Anion Gap 5 mEq/L Low 8-16 Calcium 8.5 mg/dL N 8.5-10.1 Aot Request 12/06/2017 [facility] Aot Request Test(s) added 7 [address] [place] [address] [phone] Tests to be added: BNP Iron-Tibc-%Sat 12/06/2017 [facility] Serum Iron 26 g/dL Low 50-170 [address] [place] [address] [phone] Total Iron Binding Capacity 268 g/dL N 250-450 Transferrin %Saturation 10 % Low 12-57 Laboratory test 12/06/2017 [facility] Legionella Negative Negative 8 finding [address] [facility] [place] [address] [phone] Glycohemoglobin 12/06/2017 [facility] Glycohemoglobin 5.6 % N 4.2-6.3 9 A1c [address] [facility] (A1c) [place], [place] [id number] [phone] eAG 114 mg/dL Vitamin B12 And 12/06/2017 [facility] Vitamin B12 578 pg/mL N 193-986 Folate [address] [place] [address] [phone] Folic Acid > 20.0 ng/mL High 3.1-17.5 Comprehensive Metabolic 12/06/2017 [facility] Glucose 103 mg/dL N 74-106 Panel [address] [place], [place] [id number] [phone] BUN 28 mg/dL High 7-18 Creatinine 1.6 mg/dL High 0.6-1.3 Glom Filtration Rate, Estimate 33 mL/min >60 If 40 mL/min >60 10 BUN/Creat 17.5 ratio Sodium 139 mmol/L N [...] 12-78 Alkaline Phosphatase 55 U/L N 45-117 LDL Cholesterol Profile 12/06/2017 [facility] Cholesterol 115 mg/dL <200 11 [address] [facility] [place], [place] [id number] [phone] Triglycerides 65 mg/dL <150 12 HDL Cholesterol 60 mg/dL >40 13 LDL-Cholesterol 42 mg/dL < 100 14 CBS W/Automated Diff 12/06/2017 [facility] White Blood 5.9 K/uL N 3.1-10.[address] [place] [address] [phone] Red Blood Count 2.77 M/uL Low 3.90-5.40 [...] 40.4-72.8 Lymph % 14.6 % Low 20.0-42.0 Glades % 19.8 % High 4.3-13.2 Eo% 4.1 % N 0.0-6.6 Bas% 0.2 % N 0.0-1.1 Neut# 3.62 K/uL N 1.8-7.0 Lymph # 0.86 K/uL Low 1.0-4.0 Glades # 1.17 K/uL High 0.3-0.9 Eos # 0.24 K/uL N 0.0-0.5 Baso # 0.01 K/uL N 0.0-0.1 Laboratory test 12/06/2017 [facility] C-Reactive 52.1 mg/L High <3.[address] Protein,[place] [address] [phone] NT-proBNP 1489.0 pg/mL High <450 Legionella Culture 12/05/2017 [facility] Legionella Culture (SEE NOTE) [address] [place] [address] [phone] Blood Culture 12/05/2017 [facility] Blood Culture NO GROWTH: [address] Aerobic FINAL <[place] [address] NOTE> [phone] Blood Culture Anaerobic NO GROWTH: FINAL <SEE NOTE> 17 Laboratory test 12/05/2017 [facility] Phosphorous 3.0 mg/dL N 2.5-4.0 finding [address] [place] [address] [phone] Magnesium 1.7 mg/dL Low 1.8-2.4 CK 86 U/L N 26-192 Troponin-I < 0.015 ng/mL 18 Thyroid Stim Hormone 1.17 uIU/mL N 0.30-4.20 C-Reactive Protein,Quant 47.2 mg/L High <3.0 Aot Request 12/05/2017 [facility] Aot Request Test(s) added 19 [address] [place] [address] [phone] Tests to be added: TSH Aot Request 12/05/2017 [facility] Aot Request Test(s) added 20 [address] [place] [address] [phone] Tests to be added: Mg, Phos, CRP Urine Culture 12/05/2017 [facility] Urine NO GROWTH: [address] Culture FINAL <[place] [address] NOTE> [phone] Comprehensive 12/05/2017 [facility] Glucose 109 mg/dL High 74-10 Metabolic Panel [address] [place] [address] [phone] BUN 26 mg/dL High 7-18 Creatinine 1.4 mg/dL High 0.6-1.3 Glom Filtration Rate, Estimate 39 mL/min >60 If 47 mL/min >60 22 BUN/Creat 18.5 ratio Sodium 139 mmol/L N [...] N 0.2-1.0 Sgot/Ast 12 U/L Low 15-37 23 SGPT/Alt 19 U/L N 12-78 Alkaline Phosphatase 67 U/L N 45-117 Blood Culture 12/05/2017 [facility] Blood Culture NO GROWTH: FINAL [address] Aerobic <SEE NOTE> [place] [address] [phone] Blood Culture Anaerobic NO GROWTH: FINAL <SEE NOTE> 25 Celiac Disease 09/13/2017 [facility] Immunoglobulin A 175 mg/dL 64-422 26 Comp AB Profile [address] [place] [address] [phone] Antigliadin Abs, IgG 2 units 0-19 27 Antigliadin Abs, IgA 4 units 0-19 28 Endomysial IgA Antibody Negative Negative t-Transglutaminase IgA <2 U/mL 0-3 29 t-Transglutaminase IgG <2 U/mL 0-5 30 Laboratory test 07/19/2017 [facility] Occult Blood #3 - <pending> finding Stool Iron & Tibc With % 07/19/2017 [facility] % Iron Saturation <pending> Saturation Renal Function Panel 07/19/2017 [facility] BUN - Urea Nitrogen <pending> Calcium <pending> Glucose Serum <pending> Phosphorus <pending> GFR <pending> CBC W/Auto Diff & PLT 07/19/2017 [facility] White Blood Count <pending> RBC Red Blood Count <pending> Hemoglobin <pending> Hematocrit <pending> MCV (Corpuscular Volume) <pending> MCH (Corpuscular Hemoglobin) <pending> MCHC (Corpuscular Hemog Conc) <pending> RDW <pending> Platelet Count Manual <pending> MPV <pending> Neutrophils <pending> Bands <pending> Lymphocytes <pending> Monocytes <pending> Eosinophils Fluid <pending> Basophils <pending> Absolute Basophils <pending> Absolute Eosinophils <pending> Absolute Lymphocytes <pending> Absolute Monocytes <pending> Absolute Neutrophils <pending> 1 NO DX 2 Note: Persistent reduction for 3 months or more in an eGFR <60 mL/min/1.73 m2 defines CKD. Patients with eGFR values >/=60 mL/min/1.73 m2 may also have CKD if evidence of persistent proteinuria is present. The original MDRD equation for estimated GFR is not valid for patients less than 18 years of age. Additional information may be found at www.kdoqi.org. 3 BRONCHITIS, ABNL EKG 4 Note: Persistent reduction for 3 months or more in an eGFR <60 mL/min/1.73 m2 defines CKD. Patients with eGFR values >/=60 mL/min/1.73 m2 may also have CKD if evidence of persistent proteinuria is present. The original MDRD equation for estimated GFR is not valid for patients less than 18 years of age. Additional information may be found at www.kdoqi.org. 5 SITTING UP IN BED 6 Note: Persistent reduction for 3 months or more in an eGFR <60 mL/min/1.73 m2 defines CKD. Patients with eGFR values >/=60 mL/min/1.73 m2 may also have CKD if evidence of persistent proteinuria is present. The original MDRD equation for estimated GFR is not valid for patients less than 18 years of age. Additional information may be found at www.kdoqi.org. 7 Tests: BNP Instructions: 8 Presumptive negative for L. pneumophila serogroup 1 antigen in urine, suggesting no recent or current infection. Legionnaires' disease cannot be ruled out since other serogroups and species may also cause disease. 9 Elevated levels of HbA1c suggest the need for more aggressive treatment of glycemia. The [employer] recommends that a primary goal of therapy should be a HbA1c of <7% and that physicians should re-evaluate the treatment regimen in patients with HbA1c values consistently >8%. 10 Note: Persistent reduction for 3 months or more in an eGFR <60 mL/min/1.73 m2 defines CKD. Patients with eGFR values >/=60 mL/min/1.73 m2 may also have CKD if evidence of persistent proteinuria is present. The original MDRD equation for estimated GFR is not valid for patients less than 18 years of age. Additional information may be found at www.kdoqi.org. 11 Reference Guidelines*: Desirable: ........... < 200 mg/dL Borderline High: ..... 200-239 mg/dL High: ................ >=240 mg/dL * The National Cholesterol Education Program (NCEP) 12 Reference Guidelines*: Normal: ............. < 150 mg/dL Borderline High: .... 150-199 mg/dL High: ............... 200-499 mg/dL Very High: .......... > 500 mg/dL * Source: National Cholesterol Education Program (NCEP) 13 Reference Guidelines*: Low HDL: ..... < 40 mg/dL Normal: ..... 40-60 mg/dL Desirable: ... > 60 mg/dL *The National Cholesterol Education Program(NCEP) 14 Reference Guidelines*: Optimal:........... <100 mg/dL Near Optimal....... 100-129 mg/dL Borderline High.... 130-159 mg/dL High............... 160-189 mg/dL Very High.......... >=190 mg/dL * Source: National Cholesterol Education Program (NCEP) 15 No Legionella species isolated. Performed at: - [facility] [id number] Corn Cooker: Ene Mason MD, Phone: [phone] 16 NO GROWTH: FINAL REPORT 17 NO GROWTH: FINAL REPORT 18 0.0 - 0.045 ng/mL: Normal 0.046 - 0.5 ng/mL: Suggestive 0.6 - 1.5 ng/mL: Consistent 19 Tests: TSH Instructions: 20 Tests: Mg, Phos, CRP Instructions: 21 NO GROWTH: FINAL REPORT 22 Note: Persistent reduction for 3 months or more in an eGFR <60 mL/min/1.73 m2 defines CKD. Patients with eGFR values >/=60 mL/min/1.73 m2 may also have CKD if evidence of persistent proteinuria is present. The original MDRD equation for estimated GFR is not valid for patients less than 18 years of age. Additional information may be found at www.kdoqi.org. 23 Values below the stated reference ranges of AST and ALT can be seen in normal populations. Clinical correlation is suggested. 24 NO GROWTH: FINAL REPORT 25 NO GROWTH: FINAL REPORT 26 D64.9 27 Negative 0 - 19 Weak Positive 20 - 30 Moderate to Strong Positive >30 28 Negative 0 - 19 Weak Positive 20 - 30 Moderate to Strong Positive >30 29 Negative 0 - 3 Weak Positive 4 - 10 Positive >10 Tissue Transglutaminase (tTG) has been identified as the endomysial antigen. Studies have demonstr- ated that endomysial IgA antibodies have over 99% specificity for gluten sensitive enteropathy. 30 Negative 0 - 5 Weak Positive 6 - 9 Positive >9 Performed at: RN - [facility] [address] [id number] Corn Cooker: Ene Mason MD, Phone: [phone] Procedures Date Code Description Status 02/20/2019 89092 EKG-Tracing And Report Completed 12/18/2017 74941 Bronchospasm Provocation Evaluation Multi Spirometric Completed Determinati 12/18/2017 91136 Spirometry Completed 12/08/2017 53090 Echocardiogram Complete Completed 10/31/2017 32856 Colonoscopy With Polypectomy Completed 10/31/2017 66818 Colonoscopy With Biopsy Completed 02/29/2016 00176 Myocardial Imaging Tomographic Multiple Study AT Rest Completed Or Stress 02/29/2016 54468 Stress Test Physician Super Only Completed 02/29/2016 55135 Stress Test Physician Super Only Completed 02/29/2016 74646 Stress Test Interpre And Report Only Completed 02/23/2016 05155 EKG-Tracing And Report Completed 04/03/2013 10226 Holter Monitor 24HR Inter/Report Completed 08/07/201248813 Asp./Injection major joint Completed 07/19/2010 44666782 Colonoscopy Completed 10/05/200920308 Asp./Injection major joint Completed 04/28/200985562 Asp./Injection major joint Completed 12/18/2006 80759748 Colonoscopy Completed 12/06/200603726 Asp./Injection major joint Completed 05/24/2000 30587691 Colonoscopy Completed Encounters Type Date Location Provider Dx Diagnosis Office Visit 02/20/2019 Cardiology Office Iain Blackburn01.810 Encounter for 7:00a Braulio Mckeon M.D., preprocedural [facility] cardiovascular examination G47.33 Obstructive sleep apnea (adult) (pediatric) I65.23 Occlusion and stenosis of bilateral carotid arteries I10 Essential (primary) hypertension E78.5 Hyperlipidemia, unspecified E11.9 Type 2 diabetes mellitus without complications I35.0 Nonrheumatic aortic (valve) stenosis Office Visit 07/23/2018 1:30p Pulmonology Riki Mccoy J45.20 Mild intermittent MD asthma, uncomplicated G47.33 Obstructive sleep apnea (adult) (pediatric) R09.02 Hypoxemia E66.8 Other obesity Office Visit 01/17/2018 1:15p Pulmonology Riki Mccoy J45.20 Mild intermittent asthma, uncomplicated G47.33 Obstructive sleep apnea (adult) (pediatric) Office Visit 12/12/2017 11:45a Pulmonology Coco Slater45.901 Unspecified asthma Jazzy, CLAIM REP with (acute) exacerbation Office Visit 09/13/2017 10:15a KEVIN Weller MD R19.5 Other fecal abnormalities D64.9 Anemia, unspecified Office Visit 02/24/2017 2:15p KEVIN Weller MD R10.11 Right upper quadrant pain Z12.11 Encounter for screening for malignant neoplasm of colon Office Visit 05/04/2016 3:30p Cardiology Alvino Broderick, R94.30 Abnormal result of Office cardiovascular function study, unsp 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 Office Visit 03/04/2016 11:40a Cardiology Office Zofia Collado I10 Essential (primary) A., ANP hypertension R94.30 Abnormal result of cardiovascular function study, unsp R06.02 Shortness of breath I65.22 Occlusion and stenosis of left carotid artery R00.2 Palpitations E78.2 Mixed hyperlipidemia Office Visit 02/23/2016 11:00a Cardiology Office Alvino Broderick MD I51.7 Cardiomegaly 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47 Pain Joint Ankle & Foot 496 COPD Airway Obstruction Chronic Not Class Elsewhere 401.1 Hypertension Benign Plan of Treatment Future Appointment(s):03/20/2019 3:45 pm - Riki Mccoy MD at [facility]/18 /2020 9:40 am - Braulio Blackburn M.D., FACC at Cardiology [id number]/20/2019 - Braulio Blackburn M.D., [id number] Encounter for preprocedural cardiovascular examinationComments:The patient is cleared for surgery without further study.G47.33 Obstructive sleep apnea (adult) (pediatric)Comments: IifdeppC67.23 Occlusion and stenosis of bilateral carotid arteriesComments:s/p left RCEA. Followed by Dr. ZavalaI10 Essential (primary) hypertensionComments: Controlled No changes.E78.5 Hyperlipidemia, unspecifiedComments:On statin.E11.9 Type 2 diabetes mellitus without complicationsComments:Followed by PCPI35.0 Nonrheumatic aortic (valve) stenosisNew Orders:Echocardiogram, Ordered: Comments:Mild . The murmur is louder now. She will have a follow up echo.AllFollow up:Follow up visit in 1 year.
[2019-03-21] MEDS ORDERED: Gabapentin CAP(*) 300 MG ONE (07:24)
[2019-03-21] MEDS ORDERED: Acetaminophen TAB* 325 MG ONE (07:24)
[2019-03-21] MEDS ORDERED: Ondansetron ODT TAB* 4 MG ONE (07:24)
[2019-03-21] MEDS ORDERED: Famotidine IV* 10 MG/ML 2 ML (20 mg) ONE (07:24)
[2019-03-21] MEDS ORDERED: celeCOXIB CAP* 100 MG ONE (07:24)
[2019-03-21] MEDS ORDERED: ceFAZolin 2 GM in NS PREMIX(*) 2 GM/100 ML BAG IVPB ONE (07:24)
[2019-03-21] MEDS ORDERED: Buffered Lidocaine 1% SYRIN* 1 ML/SYRINGE INTRADERM ONE ×2 (07:24→08:29)
[2019-03-21] MEDS ORDERED: Midazolam* 1 MG/ML 5 ML VIAL (5 MG) ONE (08:05)
[2019-03-21] MEDS ORDERED: fentaNYL* 50 MCG/ML 2 ML VIAL (100 MCG VIAL) ONE (08:05)
[2019-03-21] MEDS ORDERED: KETAMINE HCL* 50 MG/ML 10 ML VIAL ONE (08:05)
[2019-03-21] MEDS: Lactated Ringers 1000 ML Bag* 1,000 ML IV SCH ×2 (08:32→15:36)
[2019-03-21] MEDS ORDERED: Lidocaine 2% PF * 5 ML VIAL ONE (11:41)
[2019-03-21] MEDS ORDERED: Bupivacaine 0.5% SDV PF* 30ML VIAL ONE (11:41)
[2019-03-21] MEDS ORDERED: Propofol* 500 MG/50 ML BTL ONE (11:41)
[2019-03-21] MEDS ORDERED: Bupivacaine 0.25% EPI 200,000* 30 ML SDV ONE (11:41)
[2019-03-21] MEDS ORDERED: Phenylephrine 10 MG/ML VIAL* 1 ML VIAL ONE (11:42)
[2019-03-21] MEDS ORDERED: Bisacodyl SUPP* 10 MG SUPP PR PRN (12:11)
[2019-03-21] MEDS ORDERED: diPHENhydraMINE PO* 25 MG PO PRN (12:11)
[2019-03-21] MEDS ORDERED: Magnesium Hydroxide LIQ* 30 ML UDC PO PRN (12:11)
[2019-03-21] MEDS ORDERED: Temazepam CAP* 15 MG PO PRN (12:11)
[2019-03-21] MEDS ORDERED: Ondansetron INJ* 2 MG/ML VIAL IV PRN (12:11)
[2019-03-21] MEDS ORDERED: Polyethylene Glycol 3350* 17 GM PACKET PO PRN (12:11)
[2019-03-21] MEDS ORDERED: Morphine 4 MG/ML VIAL (1 ml) 4 MG/ML VIAL IV PRN (12:11)
[2019-03-21] MEDS ORDERED: diPHENhydraMINE IV* 50 MG/ML 1 ml VIAL (BENADRYL) IV PRN (12:11)
[2019-03-21] MEDS ORDERED: Cyclobenzaprine TAB* 10 MG PO PRN (12:11)
[2019-03-21] MEDS ORDERED: oxyCODONE/Acetamin 5/325 MG* TAB PO PRN (12:11)
[2019-03-21] MEDS ORDERED: Ondansetron ODT TAB* 4 MG PO PRN (12:11)
[2019-03-21] MEDS ORDERED: Levalbuterol HFA INHALER* 1 PUFF MDI INH PRN (12:17)
[2019-03-21] MEDS ORDERED: Dextrose 50% VIAL 50 ml IV PUSH PRN (12:46)
[2019-03-21] MEDS ORDERED: Lactated Ringers 1000 ML Bag* 1,000 ML IV SCH (13:00)
--- NOTE | 2019-03-21 14:45 | CONS ---
CC: Roel Zavala MD; Dr. Blackburn; Dr. Shepard CONSULTATION REPORT: DATE OF ADMISSION AND CONSULTATION: 03/21/19 REQUESTING PHYSICIAN: Dr. Shepard from Orthopedic Surgery in regards of medical management of the patient with diabetes and hypertension, status post right knee replacement. PRIMARY CARE PROVIDER: Roel Zavala MD CYCLING INSTRUCTOR: Dr. Blackburn. ORTHOPEDIC SURGEON: Dr. Shepard. CHIEF COMPLAINT: Right knee pain. HISTORY OF PRESENT ILLNESS: Maisha Mendoza is an 78-year-old female with history of diabetes type 2, hypertension, chronic kidney disease, stage 3, due to diabetes, who presented to the hospital for elective right knee replacement. The patient is seen postoperatively in postoperative unit. She feels well. She complains of no postoperative pain. PAST MEDICAL HISTORY: 1. History of hypertension. 2. History of coronary artery disease, under the care of Dr. Blackburn. 3. History of osteoarthritis. 4. History of sicca syndrome. 5. History of diabetes type 2. 6. TIA in 2003. 7. Chronic kidney disease, stage 3, due to diabetes. 8. History of cataract surgery bilaterally. 9. History of status post left carotid endarterectomy. 10. History of oophorectomy. 11. History of . 12. History of renal artery stenosis. 13. Hypothyroidism. MEDICATIONS: Include: 1. Cardura 2 mg b.i.d. 2. Chlorthalidone 50 mg daily. 3. Symbicort 80/4.5 one puff daily. 4. Lipitor 40 mg daily. 5. Aspirin 81 mg daily. 6. Multivitamin 1 tablet daily. 7. Loratadine 10 mg daily. 8. Lisinopril 40 mg at bedtime. 9. Levothyroxine 25 mcg daily. 10. Ferrous sulfate 320 mg daily. 11. Metformin 750 mg daily. 12. Aldactone 25 mg daily. 13. Metamucil 1 daily p.r.n. 14. Bystolic 40 mg daily. 15. Xopenex inhaler on a p.r.n. basis. ALLERGIES: Include TENORETIC, HYTRIN, VERAPAMIL, CARDIZEM CD, LEVAQUIN. FAMILY HISTORY: Positive for father with hypertension and alcoholism, mother with CVA and hypertension as well as sister with history of melanoma of the eye. SOCIAL HISTORY: The patient is a retired registered nurse. Denies any tobacco , alcohol, or drug use. She lives with her family. Her surrogate is her daughter, Collette Rodrigez. REVIEW OF SYSTEMS: Please see history of present illness. In addition to the above mentioned, the patient stated that she has had some leg edema, left more than right, and that had been ongoing chronically. She denies any chest pain or shortness of breath. All the remaining 12 systems were reviewed with the patient and were otherwise negative. PHYSICAL EXAM: Blood pressure of 142/40, heart rate of 47 and regular, respiratory rate 16, oxygen saturation 95% on room air, temperature of 96.1. General: The patient is a pleasant 78-year-old female who is in no acute distress, alert, awake, and oriented x3. HEENT: Head: Atraumatic, normocephalic. Eyes: Pupils equal, reactive to light and accommodation. Oropharynx clear. Mucosa moist. Neck: Supple. No JVD. No bruits bilaterally. Cardiovascular: Regular rate and rhythm. No murmur. Respiratory : Clear to auscultation bilaterally. Abdomen: Soft, nontender. Bowel sounds are present in all 4 quadrants. Extremities: There is no edema. Pulses are + 2 bilaterally. No clubbing or cyanosis. The right knee is in postoperative dressings and in Cryo unit. Neuro Evaluation: Speech is clear. Cranial nerves II through XII are grossly intact. Motor strength is 5/5 bilaterally. LABORATORY DATA: Currently none. ASSESSMENT AND PLAN: 1. In regards to the patient's status post right knee replacement, the patient was already placed on apixaban by primary Orthopedic Service. 2. In regards to the patient's diabetes, the patient's metformin is going to be held. She is going to be placed on insulin sliding scale. 3. For her hypertension, Bystolic is going to be continued. I will hold chlorthalidone, Cardura and lisinopril while the patient is hospitalized and place hold parameters on Aldactone. 4. The patient has a history of chronic anemia and CBC is going to be checked in the morning. 5. For her hypothyroidism, her levothyroxine is going to be continued at the same dose as outpatient. 6. The patient's code status is full. TIME SPENT: Approximately 55 minutes was spent on consultation of this patient , more than half the time was spent [id number] with the patient during the interview and physical exam. Thank you very much for allowing our service to see your patient in consultation. We will follow on a daily basis. [id number]/[facility] #: [id number] MARGIE
[2019-03-21] MEDS ORDERED: NS 0.9% 250 ML* 250 ML IV ONE (15:55)
[2019-03-21] MEDS ORDERED: Morphine INJ* 2 MG/ML 1 ML SYRINGE (TWO MG - NEW SYRINGE VERSION) IV PRN (15:55)
[2019-03-21] MEDS: Acetaminophen TAB* 325 MG PO SCH ×2 (16:45→23:56)
[2019-03-21] MEDS: Insulin LISPRO* 1 UNITS UNIT SUBCUT SCH ×2 (17:02→21:13)
--- NOTE | 2019-03-21 17:18 | PN ---
Progress Note - Progress Note Date of Service: 03/21/19 Note: Patient resting comfortably in bed with CPAP in place and family at her side. She has minimal pain at this time and still feels sleepy from anesthesia. She denies SOB, CP or calf pain. She actively dorsiflexes/plantar flexes the right ankle, with intact sensation and 2+ DP pulse. Skin is warm and dry with brisk capillary refill. Well will continue to monitor.
[2019-03-21] MEDS: Atorvastatin* 40 MG TAB PO SCH (17:46)
[2019-03-21] MEDS: ceFAZolin 1 GM ADVAN(*) 1 GM in NS 0.9% 50 ML* 50 ML IVPB SCH (17:46)
--- NOTE | 2019-03-21 20:54 | OP ---
Operative Report - Blank - Operative Report Date of Operation: 03/21/19 Note: LIS LIANG 1940 Date of Surgery: 03/21/19 Katie Shepard MD Bias Binding Folder: Ofe HUMPHREY did help throughout the procedure with preparation of the knee, wound retraction, manipulation of the knee, and wound closure. Anesthesiologist: Lizy Miller MD Anesthesia Type: Spinal Preoperative Diagnosis: Right severe degenerative osteoarthritis of the knee with valgus deformity Postoperative Diagnosis: As above Procedure Performed: Right Total Knee Arthroplasty Tourniquet time: 46 minutes Complications: None Specimen: Bone and cartilage from the right knee joint sent to pathology. Hardware Used: Cemented Bro[employer]ick [employer]hew total knee hardware was used - For the femur a size 4N right oxinium legion posterior stabilized femoral component, for the tibia a size 3 right nivia II tibial baseplate, for the insert a size 9mm 3-4 posterior stabilized articular polyethylene insert, and for the patella a size 32 3-peg all poly patella. Brief History/Indication: LIS LIANG was known in clinic and had a history of severe right knee pain and swelling. She failed conservative treatment with anti -inflammatories, pain pills, intra-articular injections and physical therapy. She elected to undergo right total knee arthroplasty due to continued pain and decreased quality of life. Radiographs showed severe end stage osteoarthritis of the knee with bone on bone contact. Informed consent was obtained from the patient. She understood the risks of surgery included but were not limited to: bleeding, infection, damage to nearby structures, intraoperative fracture, nerve palsy, failure of the hardware, early loosening, knee stiffness or loss of motion, anesthesia complications, stroke, heart attack, blood clot and . She wished to proceed. Intra-Operative Findings: Intraoperatively the patient was noted to have severe loss of cartilage in all 3 compartments of the knee. She had 20 degree valgus deformity. Description of the Procedure: LIS LIANG was identified in the preanesthesia unit. Her right knee was marked as the correct operative side. Informed consent was signed and placed in the chart. The patient was taken to the operating room and placed under anesthesia without complication. A santacruz catheter was placed. A tourniquet was placed on the right thigh. The right lower extremity was prepped and draped in the usual sterile fashion. Preoperative time-out was made to correctly identify the patient, side and site. Appropriate intraoperative antibiotics were given within one hour of incision. Tourniquet was inflated. A midline incision was made and carried sharply down to the extensor mechanism. A new 10 blade was used to make a standard medial parapatellar arthrotomy. The patella was subluxed laterally. Electrocautery was used to dissect soft tissue off the superomedial tibia to the midsagittal plane. The knee was flexed up. The anterior horn of the lateral meniscus and the ACL were sharply incised. A drill was used to enter the distal femur. The intramedullary distal femoral cutting guide was pinned on the distal femur. The oscillating saw was used to make the distal femoral cut. The external rotation guide was pinned on the distal femur and the distal femur was sized to a size 4. The size 4 multi-cutting jig was pinned on the distal femur. The oscillating saw was used to make the appropriate 4 chamfer cuts. Next the PCL was completely released. The extramedullary tibial cutting guide was pinned on the proximal tibia and the oscillating saw was used to make the proximal tibial cut perpendicular to the mechanical axis of the tibia. The bone was carefully removed. The knee was brought out into full extension. The spacer block was placed and had excellent fit with the knee in full extension. The medial and lateral ligaments were well balanced. The flexion and extension gaps were well balanced. The knee was flexed up. Lam[employer] was placed both medially and laterally. Any remaining meniscus was removed with electrocautery. Curved osteotome was used to remove any posterior osteophytes. The tibial tray and drop glynn were placed and confirmed a satisfactory tibial cut. The size 4 right narrow femoral trial was impacted onto the distal femur. This trial had excellent fit and stability. The box for the posterior stabilized implant was prepared using a box cut osteotome and a reamer. Next a tibial tray trial and 9 mm insert trial was placed. The knee was taken through a range of motion and had full extension to 130 degrees of flexion. Patellofemoral tracking was satisfactory. The patella was inverted and sized to a size 32. Three peg holes were drilled through the size 32 drill guide. The trial patella was placed and the knee was taken through a range of motion. There was satisfactory patellofemoral tracking. All trials were removed. The tibia was subluxed anteriorly and sized to a size 3. The proximal tibial was prepared with a size 3 keel punch. All bony cut surfaces were irrigated with sterile saline and dried. Final implants were cemented into place starting with the tibia, followed by the femur, and last the patella. A 9 mm insert trial was placed and the knee was brought into full extension. Tourniquet was turned down and the knee was copiously irrigated with sterile saline. Electrocautery was used to obtain meticulous hemostasis. Once the cement had fully cured, the insert trial was removed. Any excess cement was removed from around the hardware and capsule. Final insert chosen was a 9 mm posterior stabilized Nivia II articular insert size 3-4. Stability of the insert was checked and noted to be stable. The extensor mechanism was closed using number 1 vicryls. The rest of the incision was closed in a layered fashion using 0 and 2-0 vicryls. The skin was closed using 3-0 nylon suture. Sterile xeroform, 4x4s and webril were used to cover the incision. Jw wrap and cold pack were used to cover the dressings. The patients anesthesia was reversed without difficulty. She was taken to the PACU in stable condition. Intended weight-bearing will be as tolerated.
[2019-03-21] MEDS ORDERED: Lisinopril TAB* 10 MG PO SCH (21:00)
[2019-03-21] MEDS ORDERED: NEBIVOLOL 20 MG PO SCH (21:00)
[2019-03-21] MEDS ORDERED: Doxazosin TAB* 2 MG PO SCH (21:00)
[2019-03-21] MEDS: Magnesium Hydroxide LIQ* 30 ML UDC PO SCH (21:13)
[2019-03-21] MEDS: Docusate CAP* 100 MG PO SCH (21:13)
[2019-03-21] MEDS: oxyCODONE TAB* 5 MG TAB PO PRN (23:53)
[2019-03-21] MEDS: Nebivolol TAB (NF) 2.5 MG TAB PO SCH (23:57)
[2019-03-22] MEDS: ceFAZolin 1 GM ADVAN(*) 1 GM in NS 0.9% 50 ML* 50 ML IVPB SCH ×2 (01:48→10:09)
[2019-03-22] MEDS: Lactated Ringers 1000 ML Bag* 1,000 ML IV SCH (01:49)
[2019-03-22 06:10] LABS: Hematocrit 26 % (35-47); Hemoglobin 9.1 g/dL (12.0-16.0); Mean Platelet Volume 6.9 fL (7.4-10.4); Platelet Count 254 10^3/uL (150-450)
[2019-03-22] MEDS: oxyCODONE/Acetamin 5/325 MG* TAB PO PRN ×2 (06:10→11:54)
[2019-03-22] MEDS: Levothyroxine TAB* 25 MCG TAB PO SCH (06:10)
[2019-03-22 06:19] LABS: BUN/Creatinine Ratio 23.7 (8-20); Calcium 8.4 mg/dL (8.6-10.3); EGFR African American 35.2 (>60); EGFR Non-African American 29.1 (>60); Potassium 4.3 mmol/L (3.5-5.0)
[2019-03-22] MEDS: Mometasone/Formoter 100/5 MDI INH SCH ×2 (08:13→19:35)
[2019-03-22] MEDS: Insulin LISPRO* 1 UNITS UNIT SUBCUT SCH ×4 (08:58→22:35)
[2019-03-22] MEDS: Acetaminophen TAB* 325 MG PO SCH ×2 (08:59→15:12)
[2019-03-22] MEDS ORDERED: metFORMIN* 500 MG TAB PO SCH (09:00)
[2019-03-22] MEDS ORDERED: Chlorthalidone TAB* 50 MG PO SCH (09:00)
[2019-03-22] MEDS ORDERED: Spironolactone TAB* 25 MG PO SCH ×2 (09:00)
[2019-03-22] MEDS: Apixaban* 2.5 MG TAB PO SCH ×2 (09:01→21:59)
[2019-03-22] MEDS: Docusate CAP* 100 MG PO SCH ×2 (09:02→21:59)
[2019-03-22] MEDS: Magnesium Hydroxide LIQ* 30 ML UDC PO SCH ×2 (09:02→21:59)
[2019-03-22] MEDS: oxyCODONE TAB* 5 MG TAB PO PRN ×3 (09:04→21:59)
--- NOTE | 2019-03-22 10:47 | PN ---
Progress Note - Progress Note Date of Service: 03/22/19 SOAP: Subjective: []Patient seen OOB in chair. She is having moderate pain, more noticeable when up. She is requesting subacute rehabilitation in [place]. Denies SOB, CP, SOB. Objective: [] Vital Signs Temp 98.8 F 03/22/19 09:44 Pulse 55 03/22/19 09:44 Resp 16 03/22/19 09:44 BP 138/54 03/22/19 08:53 Pulse Ox 93 03/22/19 09:44 Intake & Output 03/21/19 03/22/19 03/22/19 18:59 06:59 18:59 Intake Total 2009 1165 941 Output Total 500 325 Balance 1510 840 941 Weight 218 lb Intake: IV Fluids 1650 695 941 ABX - CEFAZOLIN 115 LR 1000 695 826 Normal saline 650 IVPB 50 ABX - CEFAZOLIN 50 Oral 360 420 Output: Moran 500 325 Other: # Bowel Movements 0 Laboratory Results - last 24 hr 03/21/19 03/21/19 03/21/19 07:40 16:48 20:30 Hgb Hct Plt Count MPV Sodium Potassium Chloride Carbon Dioxide Anion Gap BUN Creatinine Est GFR ( Amer) Est GFR (Non-Af Amer) BUN/Creatinine Ratio Glucose POC Glucose (mg/dL) 101 H 123 H 218 H Calcium 03/22/19 03/22/19 03/22/19 05:43 05:43 08:23 Hgb 9.1 L Hct 26 L Plt Count 254 MPV 6.9 L Sodium 136 Potassium 4.3 Chloride 104 Carbon Dioxide 25 Anion Gap 7 BUN 40 H Creatinine 1.69 H Est GFR ( Amer) 35.2 Est GFR (Non-Af Amer) 29.1 BUN/Creatinine Ratio 23.7 H Glucose 137 H POC Glucose (mg/dL) 202 H Calcium 8.4 L Right knee dressings are dry and intact calf non tender and soft +DF right ankle sensation intact distally Assessment: []s/p Right total knee arthroplasty POD #1 Plan: []PT/OT WBAT RLE Eliquis for DVT prophylaxis Dressing change 03/23 Pursue subacute rehab in [place]
--- NOTE | 2019-03-22 12:01 | PN ---
Subjective Date of Service: 03/22/19 Interval History: Pt feels well. Had Moran d/c'd and concerned if she will be able to urinate herself. Post op pain controlled Objective Active Medications: Acetaminophen (Tylenol Tab*) 975 mg PO Q8H [facility] Last Admin: 03/22/19 08:59 Dose: 975 mg Apixaban (Eliquis*) 2.5 mg PO BID [facility] Last Admin: 03/22/19 09:01 Dose: 2.5 mg Atorvastatin Calcium (Lipitor*) 40 mg PO QPM [facility] Last Admin: 03/21/19 17:46 Dose: 40 mg Bisacodyl (Dulcolax Supp*) 10 mg MD DAILY PRN PRN Reason: constipation Cyclobenzaprine HCl (Flexeril Tab*) 10 mg PO TID PRN PRN Reason: SPASMS Dextrose (Dextrose 50% Vial 50 Ml*) 12.5 ml IV PUSH .FOR FS < 60 - SS PRN PRN Reason: FS < 60 Diphenhydramine HCl (Benadryl Iv*) 25 mg IV Q6H PRN PRN Reason: itching Diphenhydramine HCl (Benadryl Po*) 25 mg PO Q6H PRN PRN Reason: itching Docusate Sodium (Colace Cap*) 100 mg PO BID [facility] Last Admin: 03/22/19 09:02 Dose: 100 mg Lactated Ringer's (Lactated Ringers 1000 Ml Bag*) 1,000 mls @ 100 mls/hr IV PER RATE [facility] Last Admin: 03/21/19 18:49 Dose: 100 mls/hr Insulin Human Lispro (Humalog*) 0 units SUBCUT ACHS [facility]; Protocol Last Admin: 03/22/19 08:58 Dose: 4 unit Lactulose (Lactulose*) 30 ml PO Q6H PRN PRN Reason: constipation Levalbuterol HCl (Xopenex Hfa Inhaler*) 1 puff INH Q4H PRN PRN Reason: SOB/WHEEZING Levothyroxine Sodium (Synthroid Tab*) 25 mcg PO DAILY@0600 [facility] Last Admin: 03/22/19 06:10 Dose: 25 mcg Magnesium Hydroxide (Milk Of Magnesia Liq*) 30 ml PO BID [facility] Last Admin: 03/22/19 09:02 Dose: 30 ml Magnesium Hydroxide (Milk Of Magnesia Liq*) 30 ml PO Q6H PRN PRN Reason: constipation Mometasone Furoate/Formoterol Fumar (Dulera 100/5 Mdi*) 2 puff INH BID [facility] Last Admin: 03/22/19 08:13 Dose: 2 puff Morphine Sulfate (Morphine Inj (Syringe))*) 1 mg IV Q2H PRN PRN Reason: PAIN - UNRELIEVED Nebivolol (Bystolic Tab (Nf)) 40 mg PO BEDTIME [facility] Last Admin: 03/21/19 23:57 Dose: Not Given Ondansetron HCl (Zofran Inj*) 4 mg IV Q6H PRN PRN Reason: nausea Last Admin: 03/21/19 18:15 Dose: 4 mg Ondansetron HCl (Zofran Odt Tab*) 4 mg PO Q6H PRN PRN Reason: NAUSEA Oxycodone HCl (Roxycodone Tab*) 10 mg PO Q4H PRN PRN Reason: PAIN - SEVERE Last Admin: 03/22/19 09:04 Dose: 5 mg Oxycodone/Acetaminophen (Percocet 5/325 Tab*) 1 tab PO Q3H PRN PRN Reason: PAIN - MODERATE Last Admin: 03/22/19 11:54 Dose: 1 tab Oxycodone/Acetaminophen (Percocet 5/325 Tab*) 2 tab PO Q3H PRN PRN Reason: PAIN - MODERATE Last Admin: 03/21/19 14:36 Dose: 2 tab Polyethylene Glycol/Electrolytes (Miralax*) 17 gm PO DAILY PRN PRN Reason: Constipation Temazepam (Restoril Cap*) 15 mg PO BEDTIME PRN PRN Reason: INSOMNIA Tramadol HCl (Ultram*) 50 mg PO Q6H PRN PRN Reason: PAIN Vital Signs - 8 hr 03/22/19 03/22/19 03/22/19 03:58 06:10 06:11 Temperature Pulse Rate Respiratory 18 18 Rate Blood Pressure (mmHg) O2 Sat by Pulse 97 Oximetry 03/22/19 03/22/19 03/22/19 08:53 09:04 09:44 Temperature 98.8 F Pulse Rate 55 Respiratory 18 16 Rate Blood Pressure 138/54 (mmHg) O2 Sat by Pulse 93 Oximetry 03/22/19 03/22/19 11:51 11:54 Temperature 97.2 F Pulse Rate 51 Respiratory 16 18 Rate Blood Pressure 132/48 (mmHg) O2 Sat by Pulse 96 Oximetry Oxygen Devices in Use Now: None Appearance: 78 yo F in nAD, aAOx3 Eyes: No Scleral Icterus, PERRLA Ears/Nose/Mouth/Throat: NL Teeth, Lips, Gums, Mucous Membranes Moist Neck: NL Appearance and Movements; NL JVP, Trachea Midline Respiratory: Symmetrical Chest Expansion and Respiratory Effort, Clear to Auscultation Cardiovascular: NL Sounds; No Murmurs; No JVD, RRR Abdominal: NL Sounds; No Tenderness; No Distention Lymphatic: No Cervical Adenopathy Extremities: No Clubbing, Cyanosis, - - trace pedal edema b/l Skin: No Nodules or Sclerosis, - - R knee post op in dressings and cryo unit Neurological: Alert and Oriented x 3, NL Muscle Strength and Tone Result Diagrams: 03/22/19 05:43 03/22/19 05:43 Assess/Plan/Problems-Billing Assessment: 78 yo F with h/o DM2, CKD stage 3, HTN s/o elective knee replacement - Patient Problems (1) Knee joint replacement status Comment: as per ortho (2) DM2 (diabetes mellitus, type 2) Comment: holding metformin cont iSS (3) HTN (hypertension) Comment: cont Bystolic, holding Aldactone, lisinopril, Cardura, chlortalidione Pt was hypotensive post op Now SBP's in 130's (4) Postoperative anemia Comment: Hb down to 9, no apparent acute bleeding noted post op cont to monitor (5) JERSEY (acute kidney injury) Comment: likely due to post op hypotension Creat baseline 1.2, now 1.6 cont to monitor, holing Aldactone, lisinopril (6) DVT prophylaxis Comment: Leslie (7) ARJUN (obstructive sleep apnea) Comment: cont home CPAP Status and Disposition: medicine consult, will follow
[2019-03-22] MEDS: Atorvastatin* 40 MG TAB PO SCH (17:47)
[2019-03-22] MEDS: NEBIVOLOL 20 MG PO SCH (22:28)
[2019-03-22] MEDS: Nebivolol TAB (NF) 2.5 MG TAB PO SCH (23:34)
[2019-03-23] MEDS: Acetaminophen TAB* 325 MG PO SCH ×3 (00:06→17:55)
[2019-03-23] MEDS: Levothyroxine TAB* 25 MCG TAB PO SCH (04:57)
[2019-03-23] MEDS: Magnesium Hydroxide LIQ* 30 ML UDC PO SCH ×2 (08:27→21:28)
[2019-03-23] MEDS: Apixaban* 2.5 MG TAB PO SCH ×2 (08:27→21:29)
[2019-03-23] MEDS: Insulin LISPRO* 1 UNITS UNIT SUBCUT SCH ×4 (08:27→21:28)
[2019-03-23] MEDS: Docusate CAP* 100 MG PO SCH ×2 (08:27→21:28)
[2019-03-23] MEDS: oxyCODONE TAB* 5 MG TAB PO PRN ×2 (08:29→12:35)
[2019-03-23] MEDS: Mometasone/Formoter 100/5 MDI INH SCH ×2 (08:30→19:14)
[2019-03-23 08:58] LABS: CO2 Carbon Dioxide 24 mmol/L (22-32); Calcium 8.2 mg/dL (8.6-10.3); Chloride 99 mmol/L (101-111); Sodium 130 mmol/L (135-145)
[2019-03-23 09:02] LABS: Anion Gap 7 mmol/L (2-11)
[2019-03-23 09:04] LABS: BUN/Creatinine Ratio 26.6 (8-20); Blood Urea Nitrogen 42 mg/dL (6-24); EGFR African American 38.1 (>60); EGFR Non-African American 31.5 (>60); Glucose 131 mg/dL (70-100)
--- NOTE | 2019-03-23 11:29 | PN ---
Progress Note - Progress Note Date of Service: 03/23/19 SOAP: Subjective: []Patient seen OOB in chair, pain a little better today. Denies SOB, CP, dizziness. States she was offered a bed at [facility] for Monday. Objective: [] Vital Signs Temp 97.7 F 03/23/19 08:20 Pulse 57 03/23/19 08:20 Resp 16 03/23/19 08:29 BP 130/40 03/23/19 08:20 Pulse Ox 95 03/23/19 08:20 Intake & Output 03/22/19 03/23/19 03/23/19 18:59 06:59 18:59 Intake Total 1061 750 120 Output Total 200 1050 200 Balance 861 -300 -80 Intake: IV Fluids 941 ABX - CEFAZOLIN 115 LR 826 Oral 120 750 120 Output: Urine 200 1050 200 Laboratory Results - last 24 hr 03/22/19 03/22/19 03/22/19 12:01 17:39 22:25 Sodium Potassium Chloride Carbon Dioxide Anion Gap BUN Creatinine Est GFR ( Amer) Est GFR (Non-Af Amer) BUN/Creatinine Ratio Glucose POC Glucose (mg/dL) 191 H 155 H 176 H Calcium 03/23/19 03/23/19 07:41 08:22 Sodium 130 L Potassium TNP Chloride 99 L Carbon Dioxide 24 Anion Gap 7 BUN 42 H Creatinine 1.58 H Est GFR ( Amer) 38.1 Est GFR (Non-Af Amer) 31.5 BUN/Creatinine Ratio 26.6 H Glucose 131 H POC Glucose (mg/dL) 175 H Calcium 8.2 L Right knee dressings changed, scant bloody drainage on dressings, incision benign calf NT and soft sensation intact distally + DF right ankle 4x4s and MARIA INES applied Assessment: []s/p Right total knee arthroplasty POD #2 Plan: []PT/OT WBAT RLE Eliquis for DVT prophylaxis [facility] rehab Monday
--- NOTE | 2019-03-23 14:32 | PN ---
Subjective Date of Service: 03/23/19 Interval History: Denies any complaints.Some pain in knee Objective Active Medications: Acetaminophen (Tylenol Tab*) 975 mg PO Q8H [facility] Last Admin: 03/23/19 08:26 Dose: Not Given Apixaban (Eliquis*) 2.5 mg PO BID [facility] Last Admin: 03/23/19 08:27 Dose: 2.5 mg Atorvastatin Calcium (Lipitor*) 40 mg PO QPM [facility] Last Admin: 03/22/19 17:47 Dose: 40 mg Bisacodyl (Dulcolax Supp*) 10 mg [place] DAILY PRN PRN Reason: constipation Cyclobenzaprine HCl (Flexeril Tab*) 10 mg PO TID PRN PRN Reason: SPASMS Dextrose (Dextrose 50% Vial 50 Ml*) 12.5 ml IV PUSH .FOR FS < 60 - SS PRN PRN Reason: FS < 60 Diphenhydramine HCl (Benadryl Iv*) 25 mg IV Q6H PRN PRN Reason: itching Diphenhydramine HCl (Benadryl Po*) 25 mg PO Q6H PRN PRN Reason: itching Docusate Sodium (Colace Cap*) 100 mg PO BID [facility] Last Admin: 03/23/19 08:27 Dose: 100 mg Lactated Ringer's (Lactated Ringers 1000 Ml Bag*) 1,000 mls @ 100 mls/hr IV PER RATE [facility] Last Admin: 03/21/19 18:49 Dose: 100 mls/hr Insulin Human Lispro (Humalog*) 0 units SUBCUT ACHS [facility]; Protocol Last Admin: 03/23/19 12:29 Dose: 2 unit Lactulose (Lactulose*) 30 ml PO Q6H PRN PRN Reason: constipation Levalbuterol HCl (Xopenex Hfa Inhaler*) 1 puff INH Q4H PRN PRN Reason: SOB/WHEEZING Levothyroxine Sodium (Synthroid Tab*) 25 mcg PO DAILY@0600 [facility] Last Admin: 03/23/19 04:57 Dose: 25 mcg Magnesium Hydroxide (Milk Of Magnesia Liq*) 30 ml PO BID [facility] Last Admin: 03/23/19 08:27 Dose: 30 ml Magnesium Hydroxide (Milk Of Magnesia Liq*) 30 ml PO Q6H PRN PRN Reason: constipation Mometasone Furoate/Formoterol Fumar (Dulera 100/5 Mdi*) 2 puff INH BID [facility] Last Admin: 03/23/19 08:30 Dose: 2 puff Morphine Sulfate (Morphine Inj (Syringe))*) 1 mg IV Q2H PRN PRN Reason: PAIN - UNRELIEVED Nebivolol (Bystolic (Nf)) 40 mg PO BEDTIME [facility] Last Admin: 03/22/19 22:28 Dose: 40 mg Ondansetron HCl (Zofran Inj*) 4 mg IV Q6H PRN PRN Reason: nausea Last Admin: 03/21/19 18:15 Dose: 4 mg Ondansetron HCl (Zofran Odt Tab*) 4 mg PO Q6H PRN PRN Reason: NAUSEA Oxycodone HCl (Roxycodone Tab*) 10 mg PO Q4H PRN PRN Reason: PAIN - SEVERE Last Admin: 03/23/19 12:35 Dose: 10 mg Oxycodone/Acetaminophen (Percocet 5/325 Tab*) 1 tab PO Q3H PRN PRN Reason: PAIN - MODERATE Last Admin: 03/22/19 11:54 Dose: 1 tab Oxycodone/Acetaminophen (Percocet 5/325 Tab*) 2 tab PO Q3H PRN PRN Reason: PAIN - MODERATE Last Admin: 03/21/19 14:36 Dose: 2 tab Polyethylene Glycol/Electrolytes (Miralax*) 17 gm PO DAILY PRN PRN Reason: Constipation Temazepam (Restoril Cap*) 15 mg PO BEDTIME PRN PRN Reason: INSOMNIA Tramadol HCl (Ultram*) 50 mg PO Q6H PRN PRN Reason: PAIN Vital Signs - 8 hr 03/23/19 03/23/19 03/23/19 08:00 08:20 08:29 Temperature 97.7 F Pulse Rate 57 Respiratory 16 16 16 Rate Blood Pressure 130/40 (mmHg) O2 Sat by Pulse 95 95 Oximetry 03/23/19 03/23/19 12:32 12:35 Temperature 98.4 F Pulse Rate 64 Respiratory 16 16 Rate Blood Pressure 135/51 (mmHg) O2 Sat by Pulse 92 Oximetry Oxygen Devices in Use Now: None Eyes: No Scleral Icterus Neck: NL Appearance and Movements; NL JVP Respiratory: Symmetrical Chest Expansion and Respiratory Effort, Clear to Auscultation Cardiovascular: NL Sounds; No Murmurs; No JVD, RRR Abdominal: NL Sounds; No Tenderness; No Distention Extremities: No Edema Neurological: Alert and Oriented x 3 Result Diagrams: 03/22/19 05:43 03/23/19 08:22 Assess/Plan/Problems-Billing Assessment: 78 yo F with h/o DM2, CKD stage 3, HTN s/o elective knee replacement - Patient Problems (1) Knee joint replacement status Current Visit: Yes Status: Acute Code(s): Z96.659 - PRESENCE OF UNSPECIFIED ARTIFICIAL KNEE JOINT SNOMED Code(s): 503919856 Comment: as per ortho (2) J[place] (acute kidney injury) Current Visit: Yes Status: Acute Code(s): N17.9 - ACUTE KIDNEY FAILURE, UNSPECIFIED SNOMED Code(s): 04134089 Comment: likely due to post op hypotension Creat baseline 1.2, now 1.6 cont to monitor, holing Aldactone, lisinopril should improve (3) DM2 (diabetes mellitus, type 2) Current Visit: Yes Status: Acute Code(s): A02.22 - SALMONELLA PNEUMONIA Comment: holding metformin cont iSS (4) HTN (hypertension) Current Visit: Yes Status: Acute Code(s): I10 - ESSENTIAL (PRIMARY) HYPERTENSION SNOMED Code(s): 49649074 Comment: cont Bystolic, holding Aldactone, lisinopril, Cardura, chlortalidione Pt was hypotensive post op Now SBP's in 130's (5) ARJUN (obstructive sleep apnea) Current Visit: Yes Status: Acute Code(s): G47.33 - OBSTRUCTIVE SLEEP APNEA ( ADULT) (PEDIATRIC) SNOMED Code(s): 95348885 Comment: cont home CPAP (6) Postoperative anemia Current Visit: Yes Status: Acute Code(s): D64.9 - ANEMIA, UNSPECIFIED SNOMED Code(s): 054394906 Comment: Hb down to 9, no apparent acute bleeding noted post op cont to monitor (7) DVT prophylaxis Current Visit: Yes Status: Acute Code(s): Z29.9 - ENCOUNTER FOR PROPHYLACTIC MEASURES, UNSPECIFIED SNOMED Code(s): 191094955 Comment: Eliquis Status and Disposition: medicine consult, will follow
[2019-03-23] MEDS: Atorvastatin* 40 MG TAB PO SCH (17:56)
[2019-03-23] MEDS: NEBIVOLOL 20 MG PO SCH (21:28)
[2019-03-24] MEDS: oxyCODONE/Acetamin 5/325 MG* TAB PO PRN (00:37)
[2019-03-24] MEDS: Acetaminophen TAB* 325 MG PO SCH ×3 (00:40→16:12)
[2019-03-24] MEDS: Levothyroxine TAB* 25 MCG TAB PO SCH (05:56)
[2019-03-24 07:21] LABS: ABS Eosinophils 0.2 10^3/ul (0-0.6); ABS Lymphocytes 0.8 10^3/ul (1.0-4.8); ABS Neutrophils 7.4 10^3/ul (1.5-7.7); Eosinophil % 1.9 %; Hematocrit 33 % (35-47); Lymphocyte % 8.8 %; Mean Corpuscular HGB Conc 30 g/dL (31-36); Mean Corpuscular Hemoglobin 31 pg (27-31); Mean Corpuscular Volume 103 fL (80-97); Mean Platelet Volume 7.2 fL (7.4-10.4); Platelet Count 213 10^3/uL (150-450); Red Cell Distribution Width 14 % (10-15); White Blood Count 9.4 10^3/uL (3.5-10.8)
[2019-03-24 07:34] LABS: BUN/Creatinine Ratio 29.5 (8-20); Calcium 8.6 mg/dL (8.6-10.3); EGFR African American 41.7 (>60); EGFR Non-African American 34.5 (>60); Potassium 4.5 mmol/L (3.5-5.0)
[2019-03-24] MEDS: Insulin LISPRO* 1 UNITS UNIT SUBCUT SCH ×4 (07:52→21:09)
[2019-03-24] MEDS: Mometasone/Formoter 100/5 MDI INH SCH ×2 (08:25→20:24)
[2019-03-24] MEDS: Docusate CAP* 100 MG PO SCH ×2 (08:31→21:10)
[2019-03-24] MEDS: Apixaban* 2.5 MG TAB PO SCH ×2 (08:31→21:07)
[2019-03-24] MEDS: traMADol TAB* 50 MG PO PRN ×2 (09:27→14:58)
--- NOTE | 2019-03-24 10:57 | PN ---
Progress Note - Progress Note Date of Service: 03/24/19 SOAP: Subjective: [] patient is seen OOB in chair. Making slow progress with PT. nsg reports 90% O2 sat on RA, she denies SOB, chest pain, palpitations or dizziness. Uses CPAP for sleep apnea. O2 sat improved immediately with NC O2 to 95%. Objective: [] Vital Signs Temp 98.1 F 03/24/19 08:08 Pulse 86 03/24/19 08:28 Resp 20 03/24/19 09:27 BP 125/45 03/24/19 08:08 Pulse Ox 91 03/24/19 08:28 Intake & Output 03/23/19 03/24/19 03/24/19 18:59 06:59 18:59 Intake Total 220 600 240 Output Total 450 520 300 Balance -230 80 -60 Intake: Oral 220 600 240 Output: Urine 450 520 300 Other: Date of Last Bowel 03/24/2019 Movement # Bowel Movements 1 1 Estimated Stool Amount Large Medium Laboratory Results - last 24 hr 03/23/19 03/23/19 03/23/19 11:59 17:31 20:35 WBC RBC Hgb Hct MCV MCH MCHC RDW Plt Count MPV Neut % (Auto) Lymph % (Auto) [place] % (Auto) Eos % (Auto) Baso % (Auto) Absolute Neuts (auto) Absolute Lymphs (auto) Absolute Monos (auto) Absolute Eos (auto) Absolute Basos (auto) Absolute Nucleated RBC Nucleated RBC % Sodium Potassium Chloride Carbon Dioxide Anion Gap BUN Creatinine Est GFR ( Amer) Est GFR (Non-Af Amer) BUN/Creatinine Ratio Glucose POC Glucose (mg/dL) 171 H 168 H 182 H Calcium 03/24/19 03/24/19 03/24/19 06:54 06:54 07:45 WBC 9.4 RBC 3.20 L Hgb 10.0 L Hct 33 L MCV 103 H MCH 31 MCHC 30 L RDW 14 Plt Count 213 MPV 7.2 L Neut % (Auto) 78.7 Lymph % (Auto) 8.8 [place] % (Auto) 10.4 Eos % (Auto) 1.9 Baso % (Auto) 0.2 Absolute Neuts (auto) 7.4 Absolute Lymphs (auto) 0.8 L Absolute Monos (auto) 1.0 H Absolute Eos (auto) 0.2 Absolute Basos (auto) 0.0 Absolute Nucleated RBC 0.0 Nucleated RBC % 0.0 Sodium 129 L Potassium 4.5 Chloride 97 L Carbon Dioxide 27 Anion Gap 5 BUN 43 H Creatinine 1.46 H Est GFR ( Amer) 41.7 Est GFR (Non-Af Amer) 34.5 BUN/Creatinine Ratio 29.5 H Glucose 113 H POC Glucose (mg/dL) 135 H Calcium 8.6 Right knee dressing is clean and dry calf NT + Df right ankle sensation intact distally Assessment: []s/p Right total knee arthroplasty POD #3 Plan: []PT/OT WBAT RLE Eliquis for DVT prophy Encourage IS 10x per hr [facility] rehab Monday
--- NOTE | 2019-03-24 14:55 | PN ---
Subjective Date of Service: 03/24/19 Interval History: Denies any complaints.On oxygen. Objective Active Medications: Acetaminophen (Tylenol Tab*) 975 mg PO Q8H [facility] Last Admin: 03/24/19 08:31 Dose: 975 mg Apixaban (Eliquis*) 2.5 mg PO BID [facility] Last Admin: 03/24/19 08:31 Dose: 2.5 mg Atorvastatin Calcium (Lipitor*) 40 mg PO QPM [facility] Last Admin: 03/23/19 17:56 Dose: 40 mg Bisacodyl (Dulcolax Supp*) 10 mg WV DAILY PRN PRN Reason: constipation Cyclobenzaprine HCl (Flexeril Tab*) 10 mg PO TID PRN PRN Reason: SPASMS Dextrose (Dextrose 50% Vial 50 Ml*) 12.5 ml IV PUSH .FOR FS < 60 - SS PRN PRN Reason: FS < 60 Diphenhydramine HCl (Benadryl Iv*) 25 mg IV Q6H PRN PRN Reason: itching Diphenhydramine HCl (Benadryl Po*) 25 mg PO Q6H PRN PRN Reason: itching Docusate Sodium (Colace Cap*) 100 mg PO BID [facility] Last Admin: 03/24/19 08:31 Dose: 100 mg Insulin Human Lispro (Humalog*) 0 units SUBCUT [facility]; Protocol Last Admin: 03/24/19 12:09 Dose: 1 unit Lactulose (Lactulose*) 30 ml PO Q6H PRN PRN Reason: constipation Levalbuterol HCl (Xopenex Hfa Inhaler*) 1 puff INH Q4H PRN PRN Reason: SOB/WHEEZING Levothyroxine Sodium (Synthroid Tab*) 25 mcg PO DAILY@0600 [facility] Last Admin: 03/24/19 05:56 Dose: 25 mcg Magnesium Hydroxide (Milk Of Magnesia Liq*) 30 ml PO Q6H PRN PRN Reason: constipation Mometasone Furoate/Formoterol Fumar (Dulera 100/5 Mdi*) 2 puff INH BID [facility] Last Admin: 03/24/19 08:25 Dose: 2 puff Morphine Sulfate (Morphine Inj (Syringe))*) 1 mg IV Q2H PRN PRN Reason: PAIN - UNRELIEVED Nebivolol (Bystolic (Nf)) 40 mg PO BEDTIME [facility] Last Admin: 03/23/19 21:28 Dose: 40 mg Ondansetron HCl (Zofran Inj*) 4 mg IV Q6H PRN PRN Reason: nausea Last Admin: 03/21/19 18:15 Dose: 4 mg Ondansetron HCl (Zofran Odt Tab*) 4 mg PO Q6H PRN PRN Reason: NAUSEA Oxycodone HCl (Roxycodone Tab*) 10 mg PO Q4H PRN PRN Reason: PAIN - SEVERE Last Admin: 03/23/19 12:35 Dose: 10 mg Oxycodone/Acetaminophen (Percocet 5/325 Tab*) 1 tab PO Q3H PRN PRN Reason: PAIN - MODERATE Last Admin: 03/24/19 00:37 Dose: 1 tab Oxycodone/Acetaminophen (Percocet 5/325 Tab*) 2 tab PO Q3H PRN PRN Reason: PAIN - MODERATE Last Admin: 03/21/19 14:36 Dose: 2 tab Polyethylene Glycol/Electrolytes (Miralax*) 17 gm PO DAILY PRN PRN Reason: Constipation Temazepam (Restoril Cap*) 15 mg PO BEDTIME PRN PRN Reason: INSOMNIA Tramadol HCl (Ultram*) 50 mg PO Q6H PRN PRN Reason: PAIN Last Admin: 03/24/19 09:27 Dose: 50 mg Vital Signs - 8 hr 03/24/19 03/24/19 03/24/19 08:00 08:08 08:28 Temperature 98.1 F Pulse Rate 61 86 Respiratory 20 18 18 Rate Blood Pressure 125/45 (mmHg) O2 Sat by Pulse 90 91 Oximetry 03/24/19 03/24/19 03/24/19 09:27 11:29 12:10 Temperature 97.8 F Pulse Rate 51 Respiratory 20 18 20 Rate Blood Pressure 119/35 (mmHg) O2 Sat by Pulse 96 Oximetry Oxygen Devices in Use Now: Nasal Cannula, CPAP Eyes: No Scleral Icterus Ears/Nose/Mouth/Throat: NL Teeth, Lips, Gums Neck: NL Appearance and Movements; NL JVP Respiratory: Symmetrical Chest Expansion and Respiratory Effort, Clear to Auscultation Cardiovascular: NL Sounds; No Murmurs; No JVD Skin: No Rash or Ulcers Neurological: Alert and Oriented x 3 Result Diagrams: 03/24/19 06:54 03/24/19 06:54 Assess/Plan/Problems-Billing Assessment: 78 yo F with h/o DM2, CKD stage 3, HTN s/o elective knee replacement - Patient Problems (1) Knee joint replacement status Current Visit: Yes Status: Acute Code(s): Z96.659 - PRESENCE OF UNSPECIFIED ARTIFICIAL KNEE JOINT SNOMED Code(s): 319662111 Comment: as per ortho (2) [place] (acute kidney injury) Current Visit: Yes Status: Acute Code(s): N17.9 - ACUTE KIDNEY FAILURE, UNSPECIFIED SNOMED Code(s): 61665363 Comment: mild likely due to post op hypotension Creat baseline 1.2, now 1.6 cont to monitor, holing Aldactone, lisinopril should improve (3) DM2 (diabetes mellitus, type 2) Current Visit: Yes Status: Acute Code(s): A02.22 - SALMONELLA PNEUMONIA Comment: holding metformin cont iSS (4) HTN (hypertension) Current Visit: Yes Status: Acute Code(s): I10 - ESSENTIAL (PRIMARY) HYPERTENSION SNOMED Code(s): 27971821 Comment: cont Bystolic, holding Aldactone, lisinopril, Cardura, chlortalidione Pt was hypotensive post op Now SBP's in 120's Expected normal low BP post op. May not need all bp meds and may become hypotensive.Can likely restart lisinopril and aldactone tomorrow.Has h/o ckd and renal artery stenosis and hold chlorthalidone ( can cause hyponatremia) and cardura and reintroduce later if needed check bmp 1 week after discharge to ensure stability (5) ARJUN (obstructive sleep apnea) Current Visit: Yes Status: Acute Code(s): G47.33 - OBSTRUCTIVE SLEEP APNEA ( ADULT) (PEDIATRIC) SNOMED Code(s): 40018969 Comment: cont home CPAP (6) Postoperative anemia Current Visit: Yes Status: Acute Code(s): D64.9 - ANEMIA, UNSPECIFIED SNOMED Code(s): 044051686 Comment: Hb down to 9, no apparent acute bleeding noted post op cont to monitor (7) DVT prophylaxis Current Visit: Yes Status: Acute Code(s): Z29.9 - ENCOUNTER FOR PROPHYLACTIC MEASURES, UNSPECIFIED SNOMED Code(s): 144979435 Comment: Leslie (8) Hyponatremia Current Visit: Yes Status: Acute Code(s): E87.1 - HYPO-OSMOLALITY AND HYPONATREMIA SNOMED Code(s): 32031477 Comment: was on LR held follow bmp Status and Disposition: medicine consult, will follow
[2019-03-24] MEDS: Atorvastatin* 40 MG TAB PO SCH (17:01)
[2019-03-24] MEDS: NEBIVOLOL 20 MG PO SCH (21:10)
[2019-03-25] MEDS: Acetaminophen TAB* 325 MG PO SCH ×2 (00:11→08:01)
[2019-03-25] MEDS: Levothyroxine TAB* 25 MCG TAB PO SCH (05:42)
[2019-03-25 06:23] LABS: ABS Eosinophils 0.2 10^3/ul (0-0.6); ABS Lymphocytes 0.8 10^3/ul (1.0-4.8); ABS Monocytes 1.1 10^3/ul (0-0.8); ABS Neutrophils 6.4 10^3/ul (1.5-7.7); Eosinophil % 2.9 %; Hematocrit 22 % (35-47); Hemoglobin 7.7 g/dL (12.0-16.0); Lymphocyte % 8.8 %; Mean Corpuscular HGB Conc 35 g/dL (31-36); Mean Corpuscular Hemoglobin 34 pg (27-31); Mean Corpuscular Volume 98 fL (80-97); Platelet Count 297 10^3/uL (150-450); Red Blood Count 2.27 10^6 /uL (3.70-4.87); Red Cell Distribution Width 13 % (10-15); White Blood Count 8.5 10^3/uL (3.5-10.8)
[2019-03-25 06:41] LABS: BUN/Creatinine Ratio 31.4 (8-20); Calcium 8.1 mg/dL (8.6-10.3); EGFR African American 44.9 (>60); EGFR Non-African American 37.1 (>60)
[2019-03-25] MEDS: Insulin LISPRO* 1 UNITS UNIT SUBCUT SCH ×2 (07:54→12:50)
[2019-03-25] MEDS: oxyCODONE/Acetamin 5/325 MG* TAB PO PRN ×2 (08:00→12:51)
[2019-03-25] MEDS: Docusate CAP* 100 MG PO SCH (08:00)
[2019-03-25] MEDS: Apixaban* 2.5 MG TAB PO SCH (08:00)
[2019-03-25] MEDS: Mometasone/Formoter 100/5 MDI INH SCH (08:08)
[2019-03-25 09:40] LABS: TSH (Thyroid Stimulating Horm) 2.56 mcIU/mL (0.34-5.60)
[2019-03-25 09:42] LABS: Free T4 1.06 ng/dL (0.61-1.12)
--- NOTE | 2019-03-25 10:10 | PN ---
Progress Note - Progress Note Date of Service: 03/25/19 SOAP: Subjective: Pt seen sitting comfortably in chair. No complaint of pain at rest. Denies CP, SOB, F/C. Vital Signs: Temp Pulse Resp BP Pulse Ox 98.8 F 62 18 151/45 90 03/25/19 08:08 03/25/19 08:08 03/25/19 08:08 03/25/19 08:08 03/25/19 08:08 Laboratory Last Values WBC 8.5 10^3/uL (3.5-10.8) 03/25/19 05:44 RBC 2.27 10^6 /uL (3.70-4.87) L 03/25/19 05:44 Hgb 7.7 g/dL (12.0-16.0) L 03/25/19 05:44 Hct 22 % (35-47) L 03/25/19 05:44 MCV 98 fL (80-97) H 03/25/19 05:44 MCH 34 pg (27-31) H 03/25/19 05:44 MCHC 35 g/dL (31-36) 03/25/19 05:44 RDW 13 % (10-15) 03/25/19 05:44 Plt Count 297 10^3/uL (150-450) 03/25/19 05:44 MPV 7.0 fL (7.4-10.4) L 03/25/19 05:44 Neut % (Auto) 75.1 % 03/25/19 05:44 Lymph % (Auto) 8.8 % 03/25/19 05:44 [place] % (Auto) 12.9 % 03/25/19 05:44 Eos % (Auto) 2.9 % 03/25/19 05:44 Baso % (Auto) 0.3 % 03/25/19 05:44 Absolute Neuts (auto) 6.4 10^3/ul (1.5-7.7) 03/25/19 05:44 Absolute Lymphs (auto) 0.8 10^3/ul (1.0-4.8) L 03/25/19 05:44 Absolute Monos (auto) 1.1 10^3/ul (0-0.8) H 03/25/19 05:44 Absolute Eos (auto) 0.2 10^3/ul (0-0.6) 03/25/19 05:44 Absolute Basos (auto) 0.0 10^3/ul (0-0.2) 03/25/19 05:44 Absolute Nucleated RBC 0.0 10^3/ul 03/25/19 05:44 Nucleated RBC % 0.0 03/25/19 05:44 Sodium 126 mmol/L (135-145) L 03/25/19 05:44 Potassium 5.0 mmol/L (3.5-5.0) 03/25/19 05:44 Chloride 95 mmol/L (101-111) L 03/25/19 05:44 Carbon Dioxide 26 mmol/L (22-32) 03/25/19 05:44 Anion Gap 5 mmol/L (2-11) 03/25/19 05:44 BUN 43 mg/dL (6-24) H 03/25/19 05:44 Creatinine 1.37 mg/dL (0.51-0.95) H 03/25/19 05:44 Est GFR ( Amer) 44.9 (>60) 03/25/19 05:44 Est GFR (Non-Af Amer) 37.1 (>60) 03/25/19 05:44 BUN/Creatinine Ratio 31.4 (8-20) H 03/25/19 05:44 Glucose 110 mg/dL (70-100) H 03/25/19 05:44 POC Glucose (mg/dL) 119 mg/dL (70-100) H 03/25/19 07:44 Calcium 8.1 mg/dL (8.6-10.3) L 03/25/19 05:44 TSH 2.56 mcIU/mL (0.34-5.60) 03/25/19 05:44 Free T4 1.06 ng/dL (0.61-1.12) 03/25/19 05:44 Objective: A&O x3, NAD, Dressing changed, incision C/D/I, Calves soft and nontender, NVI distally Assessment: s/p right TKA POD #4 Plan: PT/OT WBAT Pain control DVT prophylaxis eliquis D/C to [facility] today
--- NOTE | 2019-03-25 11:02 | DS ---
Orthopedic Discharge Summary - Discharge Summary Date of Admission:03/21/19 Date of Discharge: 03/25/19 Date of Surgery: 03/21/19 Attending Orthopedic Provider: Dr. Katie Shepard Pre-operative Diagnosis: Right knee severe osteoarthritis Operative Procedure: Right TKA Disposition of Patient: Discharge to SNF at [facility] Condition of Patient: Stable History: LIS LIANG is a 78 year old F with years of increasingly severe Right knee pain. Patient has failed conservative management and has elected to undergo a Right total Knee replacement Hospital Course: LIS was admitted to [facility] on 03/21/19. Patient underwent a Right total knee replacement without complication followed by a brief recovery in PACU and transfer to the Short Stay Surgical Unit in stable condition. Physical therapy and occupational therapy also participated in this patients care. Post-op day 4: patient was alert and in no acute distress. Dressing was clean, dry and intact. Operative extremity dorsiflexion and plantarflexion intact, sensation intact to light touch distally, DP2+. Post- op day two: dressing was changed, incision was clean, dry and intact. Patient was deemed to be medically and orthopedically stable for discharge. She was discharged to [facility] in a stable condition. Physical therapy goals were met. Home Medications Medication Instructions Recorded Confirmed Type Multivitamin [Multivitamins] 1 tab PO QPM 10/24/12 03/21/19 History Chlorthalidone TAB* [Hygroton TAB*] 50 mg PO QAM 11/13/17 03/21/19 History Levalbuterol HFA INHALER* [Xopenex 1 puff INH Q4H PRN 11/13/17 03/12/19 History Hfa Inhaler*] Levothyroxine TAB* [Synthroid 25 25 mcg PO QAM 11/13/17 03/21/19 History MCG TAB*] metFORMIN* [Glucophage 500 MG TAB 750 mg PO QAM 11/13/17 03/21/19 History *] Atorvastatin* [Lipitor 40 MG*] 40 mg PO QPM 03/12/19 03/21/19 History Budesonide/Formote 80/4.5(NF) 1 puff INH QAM 03/12/19 03/21/19 History [Symbicort 80/4.5 (NF)] Doxazosin TAB* [Cardura TAB*] 2 mg PO BID 03/12/19 03/21/19 History Ferrous Sulfate [Feosol] 325 mg PO QPM 03/12/19 03/21/19 History Lisinopril TAB* [Prinivil TAB 10 40 mg PO BEDTIME 03/12/19 03/21/19 History MG*] Loratadine [Claritin 10 MG CAP] 10 mg PO DAILY PRN 03/12/19 03/21/19 History Nebivolol HCl [Bystolic] 40 mg PO BEDTIME 03/12/19 03/21/19 History Psyllium NEVILLE* [Metamucil NEVILLE*] 1 dose PO DAILY PRN 03/12/19 03/21/19 History Spironolactone TAB* [Aldactone TAB 25 mg PO QAM 03/12/19 03/21/19 History 25 MG*] Apixaban* [Eliquis*] 2.5 mg PO BID tab 03/25/19 Rx Docusate CAP* [Colace Cap*] 100 mg PO BID cap 03/25/19 Rx oxyCODONE/Acetamin 5/325 MG* 1 tab PO Q3H PRN tab 03/25/19 Rx [Percocet 5/325 TAB*] oxyCODONE/Acetamin 5/325 MG* 2 tab PO Q3H PRN tab 03/25/19 Rx [Percocet 5/325 TAB*] Discharge Instructions following Orthopedic Surgery: Activity: * Weight Bearing as tolerated * Continue physical therapy and occupational therapy exercises as shown Wound care: * OK to shower on post-op day 3, no bathing, swimming, or submerging wound. * Use gentle soap, pat dry. Cover with gauze, MARIA INES wrap or tape. * Visiting home nurse to do wound checks. Call Orthopedic office for: * Increased drainage * Redness * Increased pain * Fever Go to ER with shortness of breath or chest pain. Diet: * Regular diet * Increase fluids and fiber to prevent constipation. * Continue to use stool softeners, call office if no bowel motion within 48 hours. Medications See Home Medication List in your packet for medications that you should take after discharge. DVT Prophylaxis: Eliquis Dosin.5 mg, 1 tab every 12 hours x 30 days Pain Control: Percocet Dosin/325 mg 1-2 tabs by mouth every 4-6 hours as needed for pain. Maximum of 10 tabs per day. Please note that Percocet contains Tylenol (acetaminophen). Maximum daily dose of Tylenol is 4000 mg from all sources. Antibiotics are required prior to any dental work. FOLLOW UP: Follow up with [Devyn] Within 10-14 days, call for appointment Please call our office with any questions or concerns ([phone])
[2019-03-25 11:36] VITALS: BP 142/74
== END 2019-03-25 13:20 | DRG 470 ==
LOC: AA 06:53 → SSU 13:51
PROVIDERS: ADMIT Orthopaedic Surgery Adult Reconstructive Orthopaedic Surgery; ATTEND Orthopaedic Surgery Adult Reconstructive Orthopaedic Surgery
PROC: 0SRC069 Replacement of Right Knee Joint with Oxidized Zirconium on Polyethylene Synthetic Substitute, Cemented, Open Approach (ICD-10-PCS; principal; 2019-03-21 09:00)
DX: M17.11 Unilateral primary osteoarthritis, right knee (principal); N17.9 Acute kidney failure, unspecified; E87.1 Hypo-osmolality and hyponatremia; E78.00 Pure hypercholesterolemia, unspecified; J45.909 Unspecified asthma, uncomplicated; E03.9 Hypothyroidism, unspecified; M25.461 Effusion, right knee; M21.061 Valgus deformity, not elsewhere classified, right knee; I25.10 Atherosclerotic heart disease of native coronary artery without angina pectoris; K57.90 Diverticulosis of intestine, part unspecified, without perforation or abscess without bleeding; G47.33 Obstructive sleep apnea (adult) (pediatric); E11.22 Type 2 diabetes mellitus with diabetic chronic kidney disease; I12.9 Hypertensive chronic kidney disease with stage 1 through stage 4 chronic kidney disease, or unspecified chronic kidney disease; I95.81 Postprocedural hypotension; N18.3 Chronic kidney disease, stage 3 (moderate); I70.1 Atherosclerosis of renal artery; D64.9 Anemia, unspecified; E66.9 Obesity, unspecified; M25.761 Osteophyte, right knee; Z79.84 Long term (current) use of oral hypoglycemic drugs; Z86.73 Personal history of transient ischemic attack (TIA), and cerebral infarction without residual deficits; Z88.8 Allergy status to other drugs, medicaments and biological substances; Z88.1 Allergy status to other antibiotic agents; Z82.49 Family history of ischemic heart disease and other diseases of the circulatory system; Z82.3 Family history of stroke; Z87.01 Personal history of pneumonia (recurrent); Z90.721 Acquired absence of ovaries, unilateral; Z86.010 Personal history of colon polyps; Z81.1 Family history of alcohol abuse and dependence; Z80.8 Family history of malignant neoplasm of other organs or systems; Z83.49 Family history of other endocrine, nutritional and metabolic diseases; Z98.42 Cataract extraction status, left eye; Z98.41 Cataract extraction status, right eye; Z68.39 Body mass index [BMI] 39.0-39.9, adult; Z79.01 Long term (current) use of anticoagulants
CPT/HCPCS: 36415; 80048; 84439; 84443; 85014; 85018; 85025; 85049; 88305; 88311; 94640; A9270-GY; C1776; G8978-GP-CL; G8979-GP-CI; G8987-GO-CL; G8988-GO-CI; J0690; J2250; J2270; J2405; J2704; J2795; J3010; J3490

== ENCOUNTER 2022-12-06 14:30 | Inpatient (IN) ==
[2022-12-22] MEDS ORDERED: Lactated Ringers 1000 ml BAG 1,000 ML IV SCH (06:00)
[2022-12-22] MEDS ORDERED: Buffered Lidocaine 1% SYRIN 1 ml INTRADERM ONE (06:00)
[2022-12-22] MEDS ORDERED: Lidocaine 2% PF 5 ML VIAL ONE ×2 (14:13→15:39)
[2022-12-22] MEDS ORDERED: Ondansetron 4 mg VIAL 2 MG/ML 2 ml VIAL ONE (14:13)
[2022-12-22] MEDS ORDERED: Dexamethasone IV 4 MG/ML VIAL 1 ml VIAL ONE (14:13)
[2022-12-22] MEDS ORDERED: Phenylephrine 40 mcg/mL 10mL (400mcg) SYRINGE ONE (14:14)
[2022-12-22] MEDS ORDERED: ceFAZolin 2 GM in NS PREMIX 2 GM/100 ML BAG IVPB ONE (14:18)
[2022-12-22] MEDS ORDERED: Midazolam 2 mg/2 ml VIAL 1 mg/ml 2 ml VIAL (2 mg) ONE (14:27)
[2022-12-22] MEDS ORDERED: Rocuronium 50 mg VIAL 10 mg/ml 5 ml VIAL (50 mg) ONE (14:27)
[2022-12-22] MEDS ORDERED: fentaNYL 100 mcg/2 ml 50 MCG/ML VIAL ONE ×3 (14:28→19:48)
[2022-12-22] MEDS ORDERED: ROPIVACAINE 5 MG/ML 30 ML BTL (0.5%) ONE ×2 (14:46→14:57)
[2022-12-22] MEDS ORDERED: Glycopyrrolate IV 0.2 MG/ML 1 ML VIAL ONE ×2 (15:54→19:22)
[2022-12-22] MEDS ORDERED: Ketamine HCL 50 mg/ml 10 ml VIAL (500 MG) ONE (16:18)
[2022-12-22] MEDS ORDERED: Ondansetron 4 mg VIAL 2 MG/ML 2 ml VIAL IV PRN (16:28)
[2022-12-22] MEDS ORDERED: Magnesium Hydroxide LIQ 30 ML UDC PO PRN (16:28)
[2022-12-22] MEDS ORDERED: Ondansetron ODT 4 mg TAB 4 MG TAB PO PRN (16:28)
[2022-12-22] MEDS ORDERED: Morphine 2 MG/ML SYRINGE IV PRN (16:28)
[2022-12-22] MEDS ORDERED: Acetaminophen IV 1 GM/100ML 1,000 MG/100 ML BAG IV ONE (16:57)
[2022-12-22] MEDS ORDERED: Naloxone 0.4 mg VIAL 0.4 mg/ml 1 ml VIAL IV PRN (18:42)
[2022-12-22] MEDS ORDERED: HYDROmorphone 1 MG/1 ML SYRINGE ONE (18:51)
[2022-12-22] MEDS: HYDROmorphone 1 MG/1 ML SYRINGE IV PRN ×5 (18:53→19:18)
[2022-12-22] MEDS: fentaNYL 100 mcg/2 ml 50 MCG/ML VIAL IV SLOW PU ONE ×2 (19:50→20:17)
[2022-12-22] MEDS: Lactated Ringers 1000 ml BAG 1,000 ML IV SCH (22:00)
[2022-12-22] MEDS ORDERED: Levalbuterol HFA INHALER MDI INH PRN (22:33)
[2022-12-22] MEDS: Mometasone/Formoter 100/5 MDI INH SCH (23:29)
[2022-12-22] MEDS: ceFAZolin 1 GM ADVAN 1 GM in NS 0.9% 50 ML 50 ML IVPB SCH (23:45)
[2022-12-22] MEDS: Magnesium Hydroxide LIQ 30 ML UDC PO SCH (23:47)
[2022-12-23 06:52] LABS: Hemoglobin 10.1 g/dL (11.5-14.3); Mean Platelet Volume 6.6 fL (7.5-11.2); Platelet Count 241 10^3/uL (150-450)
[2022-12-23 07:08] LABS: Calcium 8.1 mg/dL (8.6-10.3); Creatinine, Serum 1.75 mg/dL (0.51-0.95); eGFR CKD-EPI 28.4 (>60)
[2022-12-23] MEDS: Mometasone/Formoter 100/5 MDI INH SCH ×2 (07:33→21:18)
[2022-12-23] MEDS: ceFAZolin 1 GM ADVAN 1 GM in NS 0.9% 50 ML 50 ML IVPB SCH ×2 (08:09→16:22)
[2022-12-23] MEDS: Magnesium Hydroxide LIQ 30 ML UDC PO SCH ×3 (08:11→22:04)
[2022-12-23] MEDS: Vitamin THERAPEUTIC TAB PO SCH (08:11)
[2022-12-23] MEDS: Lactated Ringers 1000 ml BAG 1,000 ML IV SCH (09:52)
[2022-12-23 10:02] LABS: Magnesium 1.6 mg/dL (1.9-2.7)
[2022-12-23] MEDS ORDERED: NEBIVOLOL 20 MG PO SCH (21:00)
[2022-12-23] MEDS ORDERED: Nebivolol 10 mg TAB (NF) PO SCH (21:00)
[2022-12-23] MEDS ORDERED: MULTIVITAMIN PO SCH (21:00)
[2022-12-23] MEDS ORDERED: Nebivolol 2.5 mg TAB (NF) PO ONE (23:00)
[2022-12-24 06:54] LABS: Hematocrit 22.1 % (35-45); Hemoglobin 7.9 g/dL (11.5-14.3); Mean Corpuscular Hemoglobin 33.2 pg (27-33); Mean Corpuscular Hgb Conc 35.7 g/dL (31-36); Mean Corpuscular Volume 93.1 fL (80-97); Mean Platelet Volume 6.9 fL (7.5-11.2); Platelet Count 214 10^3/uL (150-450); Red Blood Count 2.38 10^6/uL (3.63-4.92); Red Cell Distribution Width 15.4 % (12-17); White Blood Count 10.7 10^3/uL (3.8-11.8)
[2022-12-24] MEDS: Mometasone/Formoter 100/5 MDI INH SCH ×2 (07:10→21:42)
[2022-12-24 07:13] LABS: Calcium 7.6 mg/dL (8.6-10.3); Creatinine, Serum 1.99 mg/dL (0.51-0.95); Magnesium 1.6 mg/dL (1.9-2.7); Potassium 4.8 mmol/L (3.5-5.0); eGFR CKD-EPI 24.3 (>60)
[2022-12-24 08:01] LABS: ABS Lymphocytes 0.7 10^3/uL (1.0-4.8); ABS Monocytes 1.6 10^3/uL (0.0-0.9); ABS Neutrophils 8.3 10^3/uL (1.5-7.6); Eosinophil % 0.2 %; Lymphocyte % 6.4 %
[2022-12-24] MEDS: Vitamin THERAPEUTIC TAB PO SCH (08:15)
[2022-12-24] MEDS: Magnesium Hydroxide LIQ 30 ML UDC PO SCH ×2 (08:15→21:46)
[2022-12-24] MEDS: Psyllium PAK PO SCH (08:16)
[2022-12-24] MEDS ORDERED: Magnesium Sulfate IV 1GM/100ML 1 GM/100 ML BAG IV ONE (08:38)
[2022-12-24] MEDS: Nebivolol 10 mg TAB (NF) PO SCH (21:46)
[2022-12-24] MEDS: NEBIVOLOL 20 MG PO SCH (21:46)
[2022-12-25 07:16] LABS: Hematocrit 23.8 % (35-45); Hemoglobin 8.2 g/dL (11.5-14.3); Mean Platelet Volume 6.7 fL (7.5-11.2); Platelet Count 235 10^3/uL (150-450)
[2022-12-25 08:00] LABS: Calcium 8.1 mg/dL (8.6-10.3); Potassium 4.9 mmol/L (3.5-5.0)
[2022-12-25] MEDS: Mometasone/Formoter 100/5 MDI INH SCH ×2 (08:03→19:12)
[2022-12-25 08:06] LABS: Creatinine, Serum 2.01 mg/dL (0.51-0.95)
[2022-12-25] MEDS: Vitamin THERAPEUTIC TAB PO SCH (09:41)
[2022-12-25] MEDS: Magnesium Hydroxide LIQ 30 ML UDC PO SCH ×2 (09:41→22:02)
[2022-12-25] MEDS: Nebivolol 10 mg TAB (NF) PO SCH (22:03)
[2022-12-25] MEDS: NEBIVOLOL 20 MG PO SCH (22:03)
[2022-12-26 06:28] LABS: Hematocrit 21.6 % (35-45); Hemoglobin 7.6 g/dL (11.5-14.3); Mean Platelet Volume 6.6 fL (7.5-11.2); Platelet Count 248 10^3/uL (150-450)
[2022-12-26 07:04] LABS: Calcium 7.7 mg/dL (8.6-10.3); Creatinine, Serum 2.22 mg/dL (0.51-0.95); eGFR CKD-EPI 21.3 (>60)
[2022-12-26 08:03] LABS: Magnesium 2.4 mg/dL (1.9-2.7)
[2022-12-26] MEDS: Mometasone/Formoter 100/5 MDI INH SCH ×2 (08:27→20:34)
[2022-12-26] MEDS: Vitamin THERAPEUTIC TAB PO SCH (08:34)
[2022-12-26] MEDS: Magnesium Hydroxide LIQ 30 ML UDC PO SCH ×2 (08:34→20:37)
[2022-12-26] MEDS: Psyllium PAK PO SCH (08:37)
[2022-12-26 09:23] LABS: Ur Urea Nitrogen Concentration 345 mg/dL; Urine Creatinine Concentration 70.73 mg/dL (20.00-320.00); Urine Sodium Concentration < 18 mmol/L
[2022-12-26 09:39] LABS: Urine Osmo 248 mOsm/kg (150-1150)
[2022-12-26] MEDS ORDERED: NS 0.9% 1000 ml BAG 1,000 ML IV SCH (11:30)
[2022-12-26 12:56] LABS: Ferritin 585.9 ng/mL (11-307)
[2022-12-26] MEDS: Iron Sucrose 200 MG in NS 0.9% 100 ml BAG 100 ML IVPB SCH (14:17)
[2022-12-26] MEDS: Lactulose 30 ml UDC PO PRN (16:48)
[2022-12-26] MEDS: NEBIVOLOL 20 MG PO SCH (20:38)
[2022-12-26] MEDS: Nebivolol 10 mg TAB (NF) PO SCH (20:38)
[2022-12-26 21:39] LABS: Creatinine, Serum 2.1 mg/dL (0.51-0.95); Potassium 5.2 mmol/L (3.5-5.0); eGFR CKD-EPI 22.8 (>60)
[2022-12-27 06:09] LABS: Hematocrit 21.5 % (35-45); Hemoglobin 7.5 g/dL (11.5-14.3); Mean Platelet Volume 6.3 fL (7.5-11.2); Platelet Count 298 10^3/uL (150-450)
[2022-12-27 06:47] LABS: Creatinine, Serum 1.88 mg/dL (0.51-0.95); Potassium 5.1 mmol/L (3.5-5.0)
[2022-12-27] MEDS: Magnesium Hydroxide LIQ 30 ML UDC PO SCH ×2 (07:42→19:55)
[2022-12-27] MEDS: Mometasone/Formoter 100/5 MDI INH SCH ×2 (07:43→20:45)
[2022-12-27] MEDS: Vitamin THERAPEUTIC TAB PO SCH (07:54)
[2022-12-27] MEDS ORDERED: NS 0.9% 500 ml BAG 500 ML IV ONE (08:00)
[2022-12-27] MEDS: Nebivolol 10 mg TAB (NF) PO SCH (19:55)
[2022-12-27] MEDS: NEBIVOLOL 20 MG PO SCH (19:56)
[2022-12-28 08:31] LABS: ABS Eosinophils 0.1 10^3/uL (0.0-0.5); ABS Lymphocytes 0.7 10^3/uL (1.0-4.8); ABS Monocytes 0.6 10^3/uL (0.0-0.9); ABS Neutrophils 3.3 10^3/uL (1.5-7.6); Eosinophil % 1.8 %; Hematocrit 21.7 % (35-45); Hemoglobin 7.5 g/dL (11.5-14.3); Mean Corpuscular Hemoglobin 32.9 pg (27-33); Mean Corpuscular Hgb Conc 34.5 g/dL (31-36); Mean Corpuscular Volume 95.3 fL (80-97); Mean Platelet Volume 6.2 fL (7.5-11.2); Nucleated Red Blood Cells % 0.1 /100 WBC (0.0-0.4); Platelet Count 342 10^3/uL (150-450); Red Blood Count 2.27 10^6/uL (3.63-4.92); Red Cell Distribution Width 14.9 % (12-17); White Blood Count 4.8 10^3/uL (3.8-11.8)
[2022-12-28 09:10] LABS: Calcium 8.2 mg/dL (8.6-10.3); Creatinine, Serum 1.59 mg/dL (0.51-0.95); eGFR CKD-EPI 31.8 (>60)
[2022-12-28] MEDS: Psyllium PAK PO SCH (09:11)
[2022-12-28] MEDS: Mometasone/Formoter 100/5 MDI INH SCH ×2 (09:12→19:38)
[2022-12-28] MEDS: Magnesium Hydroxide LIQ 30 ML UDC PO SCH ×2 (09:12→20:28)
[2022-12-28] MEDS: Vitamin THERAPEUTIC TAB PO SCH (09:12)
[2022-12-28] MEDS: Iron Sucrose 200 MG in NS 0.9% 100 ml BAG 100 ML IVPB SCH (13:17)
[2022-12-28] MEDS: Lactulose 30 ml UDC PO PRN (13:23)
[2022-12-28 16:04] LABS: Erythropoietin 32.9 mIU/mL (2.6 - 18.5)
[2022-12-28] MEDS: Nebivolol 10 mg TAB (NF) PO SCH (21:01)
[2022-12-28] MEDS: NEBIVOLOL 20 MG PO SCH (21:01)
[2022-12-29] MEDS: Mometasone/Formoter 100/5 MDI INH SCH (08:03)
[2022-12-29] MEDS: Vitamin THERAPEUTIC TAB PO SCH (08:13)
[2022-12-29] MEDS: Magnesium Hydroxide LIQ 30 ML UDC PO SCH (08:13)
[2022-12-29 09:06] LABS: Rapid COVID-19 Molecular Undetected (Undetected)
[2022-12-29 09:42] VITALS: BP 160/58
== END 2022-12-29 10:47 | DRG 470 ==
LOC: OBSVTOIN 12-22 13:23 → INTOOBSV 12-22 13:23 → AA 12-22 13:23 → SSU 12-22 22:36
PROVIDERS: ADMIT Orthopaedic Surgery Adult Reconstructive Orthopaedic Surgery; ATTEND Orthopaedic Surgery Adult Reconstructive Orthopaedic Surgery